=== PATIENT | female | born 1955 | race Caucasian/White ===

== ENCOUNTER 2017-02-23 05:39 | Outpatient (CLI) | payer OTHER ==
[~2017-02-23] VITALS: Ht 170.2 cm; Wt 102.7 kg
[~2017-02-23 05:39] MED LIST: AMLO10TA2 PO; ARIP10TA2 PO; ARIP5TAB20 PO; AZIT250T PO; BPR150TCR PO; BUPR150T14 PO; BUTA1TAB55 PO; CEFU500T PO; CPR500T PO; ENAL20TA PO; EST.625T PO; EST1.25T PO; GLYB5TAB6 PO; IBUP1TAB17 PO; MELO-198 PO; METF500T4 PO; MTF500T PO; MULT1TAB69 PO; NADO20TA10 PO; NADO40TA PO; OMEP20CA12 PO; ONDA4TAB10 PO; SITA100T12 PO; SITA25TA5 PO; TEMA15CA PO; TR1C15 TP; VITAMIN C PO
[2017-02-23] MEDS ORDERED: METF1000 PO (14:20)
[2017-02-23] MEDS ORDERED: NADO40TA PO (14:20)
[2017-02-23] MEDS ORDERED: VITA1CAP PO (14:20)
[2017-02-23] MEDS ORDERED: ENAL20TA PO (14:20)
== END 2017-02-23 14:33 ==
LOC: PREOP 05:39
PROVIDERS: ATTEND Surgery
DX: Z01.818 Encounter for other preprocedural examination (principal); Z12.11 Encounter for screening for malignant neoplasm of colon

== ENCOUNTER 2017-02-25 08:27 | Day surgery (SDC) | payer BC, OTHER ==
[~2017-02-25] VITALS: Ht 170.2 cm; Wt 102.7 kg
[~2017-02-25 08:27] MED LIST changes: +METF1000 PO; +VITA1CAP PO
[2017-02-25] MEDS ORDERED: NS IV 500 ML 500 ML IV PRN (09:02)
[2017-02-25 09:10] VITALS: BP 144/103
[2017-02-25] MEDS ORDERED: LIDOCAINE JELLY 2% (XYLOCAINE) 5 ML TUBE MM PRN (09:15)
[2017-02-25] MEDS ORDERED: fentaNYL INJECTION 100 MCG/2 ML AMP ONE ×2 (10:05)
[2017-02-25] MEDS ORDERED: LIDOCAINE JELLY 2% (XYLOCAINE) 5 ML TUBE ONE (10:05)
[2017-02-25] MEDS ORDERED: ONDANSETRON 4 MG/2 ML (SDV) Z0FRAN ONE (10:06)
[2017-02-25] MEDS ORDERED: MIDAZOLAM 2 MG/2 ML (VERSED) VIAL ONE ×6 (10:06→10:22)
[2017-02-25] MEDS: fentaNYL INJECTION 100 MCG/2 ML AMP IVP PRN ×3 (10:10→10:35)
--- NOTE | 2017-02-25 10:19 | Conscious Sedation/ASA ---
Conscious Sedation Pre-Proced Time Reviewed: 10:00 ASA Class: 2 Airway Mallampati Classification: ([place] appropriate class) I. II. III, IV Lungs Heart ASA score ASA 1: a normal healthy patient ASA 2: a patient with a mild systemic disease (mid diabetes, controlled hypertension, obesity ASA 3: a patient with a severe systemic disease that limits activity (angina , COPD, prior Myocardial infarction) ASA 4: a patient with an incapacitating disease that is a constant threat to life (CHF, renal failure) ASA 5: a moribund patient not expected to survive 24 hrs. (ruptured aneurysm) ASA 6: a declared brain patient whose organs are being harvested. For emergent operations, add the letter E after the classification Grade 2 Sedation Plan: Analgesia, Amnesia, Plan communicated to team members, Discussed options with patient/fam, Discussed risks with patient/fam Note The patient is an appropriate candidate to undergo the planned procedure, sedation, and anesthesia. The patient immediately re-assessed prior to indication. MARIAM GOLDSTEIN MD Feb 25, 2017 10:19 am
[2017-02-25] MEDS: MIDAZOLAM 2 MG/2 ML (VERSED) VIAL IVP PRN ×6 (10:20→10:33)
--- NOTE | 2017-02-25 10:20 | Progress Note-Pre Operative ---
Pre-Operative Progress Note H&P Reviewed The H&P was reviewed, patient examined and no changes noted. Date Seen by Provider: Feb 25, 2017 Time Seen by Provider: 10:00 Date H&P Reviewed: Feb 25, 2017 Time H&P Reviewed: 10:00 Pre-Operative Diagnosis: MARIAM Aldridge MD Feb 25, 2017 10:20 am
[2017-02-25] MEDS ORDERED: ACETAMINOPHEN 325 MG TABLET/CAPLET (TYLENOL) PO PRN (10:30)
[2017-02-25] MEDS ORDERED: HYDROcodone/APAP 5 MG/325 MG (LORTAB) TAB PO PRN (10:30)
[2017-02-25] MEDS ORDERED: morphine INJ 10 MG/ML 1ML (SYR OR VIAL) IV PRN (10:30)
[2017-02-25] MEDS ORDERED: ONDANSETRON 4 MG/2 ML (SDV) Z0FRAN IV PRN (10:30)
--- NOTE | 2017-02-25 10:54 | Progress Note-Post Operative ---
Post-Operative Progess Note Surgeon (s)/Merchandiser Seasonal (s) Surgeon MARIAM GOLDSTEIN MD Merchandiser Seasonal: none Pre-Operative Diagnosis screening Post-Operative Diagnosis chronic stage 2 ext and int hemorrhoids, small anterior distal rectocele. Procedure & Operative Findings Date of Procedure 02/25/17 Procedure Performed/Findings Colonoscopy Anesthesia Type CS Estimated Blood Loss Estimated blood loss (mL): minimal Specimens/Packing Specimens Removed none MARIAM GOLDSTEIN MD Feb 25, 2017 10:54 am
--- NOTE | 2017-02-25 10:56 | Discharge Inst-Surgical ---
D/C Lap Instructions-ANGELITA Follow Up PRN Activity as tolerated High Fiber Diet 25g or more per day Avoid Alcohol, Caffeine, Spicy [place] and Acid foods. Drink 64 fluid oz or more of fluids per day. Symptoms to Report: Fever over 101 degree F, Nausea/Vomiting If any problems/questions: Contact your physician or go to Emergency Room MARIAM GOLDSTEIN MD Feb 25, 2017 10:56 am
[2017-02-25 11:20] VITALS: BP 156/92
[2017-02-25 11:45] VITALS: BP 150/96
[2017-02-25 11:50] VITALS: BP 150/96
--- NOTE | 2017-02-25 13:17 | OPERATIVE REPORT ---
DATE OF SERVICE: 02/25/2017 ATTENDING PRIMARY CARE PHYSICIAN: Dr. Haddad. PREOPERATIVE DIAGNOSIS: Screening colonoscopy. POSTOPERATIVE DIAGNOSIS: 1. Chronic stage II external and internal hemorrhoids. 2. Rectocele. PROCEDURE: Colonoscopy. SURGEON: Dr. Goldstein. ANESTHESIA: Conscious sedation. ESTIMATED BLOOD LOSS: Minimal. FINDINGS: Chronic stage II external and internal hemorrhoids, small indentation towards the anterior rectum consistent with a rectocele. The remainder of the colon was normal. There were no polyps or any neoplasms identified. DISPOSITION: The patient tolerated the procedure well. The patient is a 61-year-old female who was referred over to us for difficulties in defecation. She has had issues for this for the past 6 months. When she does have the urge to have a bowel movement with Valsalva, she is unable to evacuate her stools; however, is able to with pressure anteriorly. For the most part she has well-formed stools and does have a bowel movement every morning. The consistency of her stools are formed and not soft. She does not report any red blood per rectum nor any dark tarry stools. She has not had a previous colonoscopy done in the past. Upon digital rectal examination she was found to have mild stage II, chronic external and internal hemorrhoids as well as a small palpable indentation anteriorly at the rectum consistent with a small rectocele. No other abnormalities were detected. DESCRIPTION OF PROCEDURE: The patient was brought to the endoscopy suite, laid in the left lateral decubitus position. After adequate IV pain and sedative medication and conscious sedation anesthesia, a digital rectal examination was performed. Chronic stage II external and internal hemorrhoids were identified which were not actively edematous or inflamed and no bleeding. Normal sphincter tone was felt. There was a small indentation anteriorly consistent with a small rectocele. There were no other abnormalities palpable. The endoscope was then intubated into the anus and rectum and gently insufflated. The endoscope was then advanced to the valves diffuse in the rectum with no polyps or any neoplasms identified. We then proceeded through the sigmoid colon where no diverticulosis was identified. The endoscope was then advanced through the remainder of the descending, transverse, and ascending colon to the cecum. These segments were normal. There were no polyps or any neoplasms identified throughout the colon or rectum. The endoscope was then slowly withdrawn while taking a second look and suctioning of residual air with no additional findings. The patient tolerated the procedure well. We will have her continue with medical management with a high fiber diet with at least 25 to 30 grams of fiber per day to promote soft stools on a daily basis. If she continues to have problems with defecation despite maximal medical therapy, we will refer her to a TROLLEY CAR OPERATOR for a rectocele repair. Job ID: [id number] DocumentID: [id number] Dictated Date: 02/25/2017 10:48:55 Tier And Detonator Date: 02/25/2017 13:16:42 Dictated By: MARIAM GOLDSTEIN MD
== END 2017-02-25 11:55 | disposition home or self-care (01) ==
LOC: ENDO 08:27
PROVIDERS: ATTEND Surgery
DX: Z12.11 Encounter for screening for malignant neoplasm of colon (principal); K64.1 Second degree hemorrhoids; N81.6 Rectocele; Z96.641 Presence of right artificial hip joint; I10 Essential (primary) hypertension; K21.9 Gastro-esophageal reflux disease without esophagitis; F32.9 Major depressive disorder, single episode, unspecified; E11.9 Type 2 diabetes mellitus without complications; Z79.899 Other long term (current) drug therapy
CPT/HCPCS: 82962

== ENCOUNTER 2017-07-02 11:15 | Outpatient (CLI) | payer OTHER ==
[~2017-07-02] VITALS: Ht 170.2 cm; Wt 102.7 kg
== END 2017-07-02 12:19 ==
LOC: PREOP 11:15
PROVIDERS: ATTEND Obstetrics & Gynecology
DX: Z01.818 Encounter for other preprocedural examination (principal); N81.6 Rectocele; N81.5 Vaginal enterocele; D64.9 Anemia, unspecified

== ENCOUNTER 2017-07-08 10:56 | Day surgery (SDC) | payer OTHER ==
[~2017-07-08] VITALS: Ht 170.2 cm; Wt 102.7 kg
[2017-07-08 11:10] VITALS: BP 146/95
[2017-07-08] MEDS: LACTATED RINGERS 1,000 ML IV PRN ×2 (11:30→13:47)
[2017-07-08] MEDS ORDERED: ceFAZolin 1 GM/NS 50 ML IVPB IV ONE ×2 (11:30)
[2017-07-08 11:48] LABS: BASOPHILS % (AUTO) 1 % (0-10); EOSINOPHILS # (AUTO) 0.2 10^3/uL (0.0-0.3); EOSINOPHILS % (AUTO) 3 % (0-10); LYMPHOCYTES # (AUTO) 1.6 X 10^3 (1.0-4.0); LYMPHOCYTES % (AUTO) 28 % (12-44); MEAN CORPUSCULAR HEMOGLOBIN 30 PG (25-34); MEAN CORPUSCULAR HGB CONC 34 G/DL (32-36); MEAN CORPUSCULAR VOLUME 90 FL (80-99); MEAN PLATELET VOLUME 9.9 FL (7.4-10.4); MONOCYTES # (AUTO) 0.6 X 10^3 (0.0-1.0); MONOCYTES % (AUTO) 10 % (0-12); NEUTROPHILS # (AUTO) 3.3 X 10^3 (1.8-7.8); NEUTROPHILS % (AUTO) 58 % (42-75); PLATELET COUNT 154 10^3/uL (130-400); RED BLOOD COUNT 4.54 10^6/uL (4.35-5.85); RED CELL DISTRIBUTION WIDTH 12.4 % (10.0-14.5); WHITE BLOOD COUNT 5.6 10^3/uL (4.3-11.0)
[2017-07-08] MEDS ORDERED: ESTRADIOL VAGINAL CREAM 42.5 GM (ESTRACE) VG ONE (12:51)
[2017-07-08] MEDS ORDERED: D5 LR IV SOLUTION 1,000 ML IV SCH (13:14)
--- NOTE | 2017-07-08 13:14 | Progress Note-Pre Operative ---
Pre-Operative Progress Note H&P Reviewed The H&P was reviewed, patient examined and no changes noted. Date Seen by Provider: Jul 08, 2017 Time Seen by Provider: 13:14 Date H&P Reviewed: Jul 08, 2017 Time H&P Reviewed: 13:14 Pre-Operative Diagnosis: vaginal prolapse/rectocele LIZ PENA MD Jul 08, 2017 1:14 pm
--- NOTE | 2017-07-08 13:14 | Progress Note-Post Operative ---
Post-Operative Progess Note Surgeon (s)/Optometric Technologist (s) Surgeon LIZ PENA MD Optometric Technologist: Blanca Melo Pre-Operative Diagnosis vaginal prolapse/rectocele Post-Operative Diagnosis same Procedure & Operative Findings Date of Procedure 07/08/17 Procedure Performed/Findings anterior and posterior colporrhaphy Anesthesia Type spinal Estimated Blood Loss Estimated blood loss (mL): 200 cc Specimens/Packing Specimens Removed none Packing: Kerlix LIZ Mc MD Jul 08, 2017 13:14
[2017-07-08] MEDS ORDERED: WATER (STERILE) FOR INJ 10 ML BTL INJ ONE (13:15)
[2017-07-08] MEDS ORDERED: PATIENT MAY USE OWN MEDS, ALL MC SCH (13:15)
[2017-07-08] MEDS ORDERED: ONDANSETRON 4 MG/2 ML (SDV) Z0FRAN IVP PRN ×2 (13:15→15:15)
[2017-07-08] MEDS ORDERED: KETOROLAC 30 MG/ML VIAL IVP SCH (13:15)
[2017-07-08] MEDS ORDERED: MEPERIDINE (DEMEROL) INJ 100 MG/ML IM PRN (13:15)
[2017-07-08] MEDS ORDERED: ESTROGENS CONJ IV 25 MG/5 ML (PREMARIN) VIAL IVP ONE (13:15)
[2017-07-08] MEDS ORDERED: PROMETHAZINE INJ 25 MG/ML (PHENERGAN) AMP IM PRN (13:15)
[2017-07-08] MEDS ORDERED: BENZOCAINE/MENTHOL (DERMOPLAST) 56 ML CAN TP PRN (13:15)
[2017-07-08] MEDS ORDERED: ceFAZolin INJECTION 1,000 MG in NS (IVPB) 50 ML IV ONE (13:15)
[2017-07-08] MEDS ORDERED: PROPOFOL INJECTION 50 ML IV ONE (13:17)
[2017-07-08] MEDS ORDERED: DOCU-143 PO (13:19)
[2017-07-08] MEDS ORDERED: OXYC-465 PO (13:19)
[2017-07-08] MEDS ORDERED: IBUP-1780 PO (13:19)
--- NOTE | 2017-07-08 13:23 | Discharge Instructions ---
Discharge Instructions Discharge Medications New, Converted or Re-Newed RX: RX on Chart Patient Instructions Patient Instructions: as directed Return to The Hospital For: as directed Activity & Diet Discharge Diet: No Restrictions Activity as Tolerated: No Orders-Post D/C & Referrals Follow Up Appt: Call to make follow up appt. for patient in 4 weeks. Activity: Rest for 24 hours, than as tolerated. Please call in RX to patient pharmacy. Diet: As tolerated-Clear Liquids only if nauseated. May shower or tub bathe as desired. No driving for 24 hours, no alcoholic beverages for 24 hours, and nothing per vagina (no tampons, douching, or intercourse) for 2 weeks. Patient to return to the clinic as soon as possible for: Temperature greater than 101F, Severe Pain, Foul discharge from incision or vagina, Excessive Bleeding (more than a period). LIZ PENA MD Jul 08, 2017 1:23 pm
[2017-07-08] MEDS ORDERED: FAMOTIDINE 20MG/2ML IV (PEPCID) IVP ONE (13:30)
[2017-07-08] MEDS ORDERED: KETOROLAC 30 MG/ML VIAL ONE (15:11)
[2017-07-08] MEDS ORDERED: fentaNYL INJECTION 100 MCG/2 ML AMP IVP PRN (15:15)
[2017-07-08] MEDS ORDERED: PROMETHAZINE INJ 25 MG/ML (PHENERGAN) AMP IVP PRN (15:15)
[2017-07-08 16:15] VITALS: BP 138/71
--- NOTE | 2017-07-08 17:51 | HISTORY AND PHYSICAL ---
DATE OF SERVICE: DATE OF ADMISSION: 07/08/2017. HISTORY OF PRESENT ILLNESS: The patient is a 62-year-old G4, P4 who was referred to me by for a rectocele. She was found also to have a cystocele. She denied urinary incontinence. She was complaining that she had a splint for bowel movements and that has been getting progressively worse over the years. She had a sensation of something falling out of her vagina and occasionally had to reduce it. We had a lengthy discussion regarding surgical repairs which she elected to undergo and that was scheduled for 07/08/2017. ALLERGIES: None. MEDICATIONS: Per her H and P of 06/03/2017. Past medical, surgical, obstetric, family and social histories are per the H and P of 06/03/2017. HEENT: Normal. NECK: Supple, no lymphadenopathy, no thyromegaly. ABDOMEN: Soft, nontender, nondistended. EXTREMITIES: Showed no clubbing or cyanosis. There was no Homans sign. PELVIC EXAM: Deferred to the operating room. ASSESSMENT AND PLAN: The patient has symptomatic vaginal prolapse, most prominently a rectocele, but she also has a cystocele. Plan is to perform posterior colporrhaphy and likely an anterior colporrhaphy on this day. Surgical risks, complication, recovery and followup were fully discussed with the patient. She accepts those risks and is ready to proceed. Job ID: [id number] DocumentID: [id number] Dictated Date: 07/08/2017 14:50:45 Photographer Scientific Date: 07/08/2017 15:51:59 Dictated By: LIZ PENA MD
[2017-07-08] MEDS: oxyCODONE/APAP 10/325MG (PERCOCET 10) TABLET PO PRN ×2 (19:00→20:08)
[2017-07-08 20:05] VITALS: BP 138/68
[2017-07-08] MEDS ORDERED: INFLUENZA TRIvalent 2017-2018 0.5 ML/45 MCG SYR IM ONE (20:30)
[2017-07-08] MEDS: KETOROLAC 30 MG/ML VIAL IVP SCH (21:59)
[2017-07-09 01:30] VITALS: BP 126/72
--- NOTE | 2017-07-09 02:34 | OPERATIVE REPORT ---
DATE OF SERVICE: 07/08/2017 PREOPERATIVE DIAGNOSIS: Vaginal prolapse. POSTOPERATIVE DIAGNOSIS: Vaginal prolapse. OPERATIVE PROCEDURE: Anterior and posterior colporrhaphy. OPERATIVE DESCRIPTION: With the patient in the supine position under satisfactory spinal anesthesia, she was repositioned in dorsal lithotomy position in the Julien stirrups and prepped and draped in the usual fashion for vaginal surgery. An anterior repair was initiated by placing a weighted speculum in the posterior fornix of the vagina. The anterior vaginal wall was grasped with 2 Caroline clamps, opened in the midline with Metzenbaum scissors. The vesicovaginal space was entered sharply with Metzenbaums and then dissected to approximately 1.5 cm from the urethral meatus to the apex of the vagina. The bladder was carefully dissected off of the muscularis of the vagina back to the pubic bilaterally. The bladder wall was then plicated with 2-0 Vicryl sutures in the usual manner elevating the bladder and lengthening the urethra. Redundant anterior vaginal wall muscularis mucosa was removed sharply. The vaginal wall was closed with a running locked suture of 3-0 Vicryl Rapide. The support was back to normal in anatomic position. Posterior repair was then affected by placing Caroline clamps on the perineum and the hymenal ring at 5 and 7 o'clock position. The inverted triangle of skin was removed from the perineal body and upright triangle from the posterior vaginal floor. The vesicovaginal space was entered sharply and dissected bluntly to the apex of the vagina. The apex was explored for an enterocele that being small and it was reduced and then plicated with a 2-0 Vicryl pursestring suture obliterating the enterocele. The rectovaginal space was then obliterated with additional sutures of 2-0 Vicryl. The perineal body was restored with 2-0 Vicryl individual sutures and then redundant posterior vaginal wall muscularis mucosa was removed sharply. Vaginal wall was closed with a running locked suture of 3-0 Vicryl Rapide as well. That closure was continued past the hymenal ring and back down on the perineal body, then backup subcutaneous to the hymenal ring where the suture was tied. Digital rectal exam confirmed no stricture or stenosis of the rectum and no sutures into or through the rectal mucosa. The vagina was now filled was Estrace vaginal cream and a pack of Kerlix gauze was placed. Sponge and needle counts were correct on completion of the procedure. Estimated blood loss was around 200 mL. The patient tolerated the procedure well under the spinal and was transferred to recovery room in stable condition. Job ID: [id number] DocumentID: [id number] Dictated Date: 07/08/2017 14:53:31 Public Relations Player Date: 07/09/2017 01:38:52 Dictated By: LIZ PENA MD
[2017-07-09] MEDS: KETOROLAC 30 MG/ML VIAL IVP SCH (03:51)
[2017-07-09 03:55] VITALS: BP 124/76
--- NOTE | 2017-07-09 07:53 | Progress Note-Standard ---
Standard Progress Note Progress Notes/Assess & Plan Date Seen by Provider: Jul 09, 2017 Time Seen by Provider: 07:52 Progress/Assessment & Plan this patient is without complaint. She is ambulating, tolerating by mouth well , has good pain control. She has not voided yet. patient denies chest pain, denies shortness of breath, denies nausea vomiting, and denies headache. Vital Signs Date Time Temp Pulse Resp B/P (MAP) Pulse Ox O2 Delivery O2 Flow Rate FiO2 07/09/17 03:55 96.9 66 18 124/76 (92) 95 Room Air 07/09/17 01:30 97.6 73 18 126/72 (90) 93 Room Air 07/08/17 20:05 97.4 81 18 138/68 (91) 95 Room Air 07/08/17 16:15 98.4 67 20 138/71 (93) 96 Room Air 07/08/17 11:10 97.5 82 18 146/95 (112) 97 Room Air I & O 07/09/17 07:00 Intake Total 2850 ml Output Total 2700 ml Balance 150 ml Vital signs are stable. Patient is afebrile. The abdomen is benign. Extremities show no clubbing cyanosis. There is no Homans sign. Assessment and plan postoperative day number 1 doing well. Plan is for discharge home when patient is ambulating, voiding, told feel, has good pain control, and is requesting discharge home. Final Diagnosis vaginal prolapse LIZ PENA MD Jul 09, 2017 7:53 am
[2017-07-09] MEDS: oxyCODONE/APAP 10/325MG (PERCOCET 10) TABLET PO PRN ×2 (08:33→09:33)
[2017-07-09 08:37] VITALS: BP 138/85
[2017-07-09] MEDS ORDERED: DOCUSATE SODIUM 100 MG (COLACE) CAP PO SCH (09:00)
[2017-07-09] MEDS ORDERED: ESTRADIOL 1 MG TAB (ESTRACE) PO SCH (09:00)
--- OUTSIDE RECORDS SUMMARY | 2017-07-09 09:35 | XMS REPORT | Continuity of Care Document ---
Author Author [facility] Organization [facility] Address Unknown Phone Unavailable Allergies Active Description Code Type Severity Reaction Onset Reported/Identified Relationship to Patient Clinical Status Yes No Known Drug Allergies [id number] Drug Allergy Unknown N/A 07/02/2017 Medications There is no data. Problems Date Dx Coded Attending Type Code Diagnosis Diagnosed By 05/21/2012 Ot 346.90 MIGRAINE UNSPECIFIED W/O INTRACT MGRN W/ 05/21/2012 Ot 784.0 HEADACHE 07/08/2012 Ot 596.51 HYPERTONICITY OF BLADDER 07/08/2012 Ot 618.2 UTEROVAG PROLAPS-INCOMPL 07/08/2012 Ot 625.6 FEM STRESS INCONTINENCE 07/24/2014 KAYLAN HOBBS MD Ot 397.0 07/24/2014 KAYLAN HOBBS MD Ot 424.0 07/24/2014 KAYLAN HOBBS MD Ot 785.1 07/24/2014 KAYLAN HOBBS MD Ot 786.09 07/24/2014 KAYLAN HOBBS MD Ot 786.50 07/24/2014 KAYLAN HOBBS MD Ot 424.0 07/24/2014 KAYLAN HOBBS MD Ot 785.1 07/24/2014 KAYLAN HOBBS MD Ot 786.09 07/24/2014 KAYLAN HOBBS MD Ot 786.50 08/17/2014 ANTONINA HERNÁNDEZ MD Ot 786.2 03/22/2015 ANTONINA HERNÁNDEZ MD Ot 786.2 04/13/2015 ANTONINA HERNÁNDEZ MD Ot 786.2 05/09/2015 Ot 790.5 05/09/2015 ANTONINA HERNÁNDEZ MD Ot 786.2 05/09/2015 KAYLAN HOBBS MD Ot 397.0 05/09/2015 KAYLAN HOBBS MD Ot 424.0 05/09/2015 KAYLAN HOBBS MD Ot 785.1 05/09/2015 KAYLAN HOBBS MD Ot 786.09 05/09/2015 KAYLAN HOBBS MD Ot 786.50 05/09/2015 KAYLAN HOBBS MD Ot 424.0 05/09/2015 KAYLAN HOBBS MD Ot 785.1 05/09/2015 KAYLAN HOBBS MD Ot 786.09 05/09/2015 KAYLAN HOBBS MD Ot 786.50 05/09/2015 ANTONINA HERNÁNDEZ MD Ot 786.2 05/10/2015 PHAN ROSS, SHILO Reza Ot E11.9 TYPE 2 DIABETES MELLITUS WITHOUT COMPLIC 05/10/2015 SHILO CHISHOLM MD Ot R10.13 EPIGASTRIC PAIN 05/10/2015 SHILO CHISHOLM MD Ot R11.2 NAUSEA WITH VOMITING, UNSPECIFIED 05/10/2015 PHAN ROSS, SHILO Reza Ot Z79.899 OTHER STRUCTURAL WELDER (CURRENT) DRUG THERAPY 10/11/2015 Ot 790.5 10/11/2015 ANTONINA HERNÁNDEZ MD Ot 786.2 10/11/2015 KAYLAN HOBBS MD Ot 397.0 10/11/2015 KAYLAN HOBBS MD Ot 424.0 10/11/2015 KAYLAN HOBBS MD Ot 785.1 10/11/2015 KAYLAN HOBBS MD Ot 786.09 10/11/2015 KAYLAN HOBBS MD Ot 786.50 10/11/2015 KAYLAN HOBBS MD Ot 424.0 10/11/2015 KAYLAN HOBBS MD Ot 785.1 10/11/2015 KAYLAN HOBBS MD Ot 786.09 10/11/2015 KAYLAN HOBBS MD Ot 786.50 10/11/2015 ANTONINA HERNÁNEDZ MD Ot 786.2 10/31/2015 Ot 790.5 10/31/2015 ANTONINA HERNÁNDEZ MD Ot 786.2 10/31/2015 KAYLAN HOBBS MD Ot 397.0 10/31/2015 KAYLAN HOBBS MD Ot 424.0 10/31/2015 KAYLAN HOBBS MD Ot 785.1 10/31/2015 KAYLAN HOBBS MD Ot 786.09 10/31/2015 KAYLAN HOBBS MD Ot 786.50 10/31/2015 KAYLAN HOBBS MD Ot 424.0 10/31/2015 KAYLAN OHBBS MD Ot 785.1 10/31/2015 KAYLAN HOBBS MD Ot 786.09 10/31/2015 KAYLAN HOBBS MD Ot 786.50 10/31/2015 ANTONINA HERNÁNDEZ MD Ot 786.2 12/14/2015 KESHAWN CHRISTINA MD, Ot M75.102 UNSP ROTATR-CUFF TEAR/RUPTR OF LEFT SHOU 05/22/2016 Ot 790.5 ABN SERUM ENZY LEVEL NEC 05/22/2016 ANTONINA HERNÁNDEZ MD Ot 786.2 COUGH 05/22/2016 KAYLAN HOBBS MD Ot 397.0 TRICUSPID VALVE DISEASE 05/22/2016 KAYLAN HOBBS MD Ot 424.0 MITRAL VALVE DISORDER 05/22/2016 KAYLAN HOBBS MD Ot 785.1 PALPITATIONS 05/22/2016 KAYLAN HOBBS MD Ot 786.09 RESPIRATORY ABNORM NEC 05/22/2016 KAYLAN HOBBS MD Ot 786.50 CHEST PAIN NOS 05/22/2016 KAYLAN HOBBS MD Ot 424.0 MITRAL VALVE DISORDER 05/22/2016 KAYLAN HOBBS MD Ot 785.1 PALPITATIONS 05/22/2016 KAYLAN HOBBS MD Ot 786.09 RESPIRATORY ABNORM NEC 05/22/2016 KAYLAN HOBBS MD Ot 786.50 CHEST PAIN NOS 05/22/2016 ANTONINA HERNÁNDEZ MD Ot 786.2 COUGH 05/22/2016 KESHAWN CHRISTINA MD, Ot M75.102 UNSP ROTATR-CUFF TEAR/RUPTR OF LEFT SHOU 05/22/2016 Ot 790.5 ABN SERUM ENZY LEVEL NEC 05/22/2016 ANTONINA HERNÁNDEZ MD Ot 786.2 COUGH 05/22/2016 KAYLAN HOBBS MD Ot 397.0 TRICUSPID VALVE DISEASE 05/22/2016 KAYLAN HOBBS MD Ot 424.0 MITRAL VALVE DISORDER 05/22/2016 KAYLAN HOBBS MD Ot 785.1 PALPITATIONS 05/22/2016 KAYLAN HOBBS MD Ot 786.09 RESPIRATORY ABNORM NEC 05/22/2016 KAYLAN HOBBS MD Ot 786.50 CHEST PAIN NOS 05/22/2016 KAYLAN HOBBS MD Ot 424.0 MITRAL VALVE DISORDER 05/22/2016 KAYLAN HOBBS MD Ot 785.1 PALPITATIONS 05/22/2016 KAYLAN HOBBS MD Ot 786.09 RESPIRATORY ABNORM NEC 05/22/2016 KAYLAN HOBBS MD Ot 786.50 CHEST PAIN NOS 05/22/2016 ANTONINA HERNÁNDEZ MD Ot 786.2 COUGH 05/22/2016 SANFORD ROSS, KESHAWN Cunningham Ot M75.102 UNSP ROTATR-CUFF TEAR/RUPTR OF LEFT SHOU 05/23/2016 ZAYNAB MEJÍA RUSTY K Ot E11.9 TYPE 2 DIABETES MELLITUS WITHOUT COMPLIC 05/23/2016 ZAYNAB MEJÍA RUSTY Judy Ot E86.0 DEHYDRATION 05/23/2016 ZAYNAB MEJÍA RUSTY Judy Ot I10 ESSENTIAL (PRIMARY) HYPERTENSION 05/23/2016 ZAYNAB MEJÍA RUSTY K Ot N10 ACUTE PYELONEPHRITIS 05/23/2016 ZAYNAB MEJÍA RUSTY K Ot Z79.84 SNF (CURRENT) USE OF ORAL HYPOGLYC 05/23/2016 ZAYNAB MEJÍA RUSTY Judy Ot E11.9 TYPE 2 DIABETES MELLITUS WITHOUT COMPLIC 05/23/2016 ZAYNAB MEJÍA RUSTY Judy Ot E86.0 DEHYDRATION 05/23/2016 ZAYNAB MEJÍA RUSTY K Ot I10 ESSENTIAL (PRIMARY) HYPERTENSION 05/23/2016 ZAYNAB MEJÍA RUSTY K Ot N10 ACUTE PYELONEPHRITIS 05/23/2016 ZAYNAB MEJÍA RUSTY K Ot Z79.84 SNF (CURRENT) USE OF ORAL HYPOGLYC 05/23/2016 Ot 790.5 ABN SERUM ENZY LEVEL NEC 05/23/2016 ANTONINA HERNÁNDEZ MD Ot 786.2 COUGH 05/23/2016 KAYLAN HOBBS MD Ot 397.0 TRICUSPID VALVE DISEASE 05/23/2016 KAYLAN HOBBS MD Ot 424.0 MITRAL VALVE DISORDER 05/23/2016 KAYLAN HOBBS MD Ot 785.1 PALPITATIONS 05/23/2016 KAYLAN HOBBS MD Ot 786.09 RESPIRATORY ABNORM NEC 05/23/2016 KAYLAN HOBBS MD Ot 786.50 CHEST PAIN NOS 05/23/2016 KAYLAN HOBBS MD Ot 424.0 MITRAL VALVE DISORDER 05/23/2016 KAYLAN HOBBS MD Ot 785.1 PALPITATIONS 05/23/2016 FABY ROSS, KAYLAN Rider Ot 786.09 RESPIRATORY ABNORM NEC 05/23/2016 FABY ROSS, KAYLAN Rider Ot 786.50 CHEST PAIN NOS 05/23/2016 BETTY ROSS, ANTONINA Rider Ot 786.2 COUGH 05/23/2016 SANFORD ROSS, KESHAWN Cunningham Ot M75.102 UNSP ROTATR-CUFF TEAR/RUPTR OF LEFT SHOU 05/23/2016 WORTHY DO, RUSTY K Ot E11.9 TYPE 2 DIABETES MELLITUS WITHOUT COMPLIC 05/23/2016 WORTHY DO, RUSTY K Ot E86.0 DEHYDRATION 05/23/2016 WORTHY DO, RUSTY K Ot I10 ESSENTIAL (PRIMARY) HYPERTENSION 05/23/2016 WORTHY DO, RUSTY K Ot N10 ACUTE PYELONEPHRITIS 05/23/2016 WORTHY DO, RUSTY K Ot Z79.84 SNF (CURRENT) USE OF ORAL HYPOGLYC 05/23/2016 WORTHY DO, RUSTY K Ot E11.9 TYPE 2 DIABETES MELLITUS WITHOUT COMPLIC 05/23/2016 WORTHY DO, RUSTY K Ot E86.0 DEHYDRATION 05/23/2016 WORTHY DO, RUSTY K Ot I10 ESSENTIAL (PRIMARY) HYPERTENSION 05/23/2016 WORTHY DO, RUSTY K Ot N10 ACUTE PYELONEPHRITIS 05/23/2016 WORTHY DO, RUSTY K Ot Z79.84 SNF (CURRENT) USE OF ORAL HYPOGLYC 05/24/2016 WORTHY DO, RUSTY K Ot E11.9 TYPE 2 DIABETES MELLITUS WITHOUT COMPLIC 05/24/2016 WORTHY DO, RSUTY K Ot E86.0 DEHYDRATION 05/24/2016 WORTHY DO, RUSTY K Ot I10 ESSENTIAL (PRIMARY) HYPERTENSION 05/24/2016 WORTHY DO, RUSTY K Ot N10 ACUTE PYELONEPHRITIS 05/24/2016 WORTHY DO, RUSTY K Ot Z79.84 STRUCTURAL WELDER (CURRENT) USE OF ORAL HYPOGLYC 05/25/2016 WORTHY DO, RUSTY K Ot E11.9 TYPE 2 DIABETES MELLITUS WITHOUT COMPLIC 05/25/2016 WORTHY DO, RUSTY K Ot E86.0 DEHYDRATION 05/25/2016 WORTHY DO, RUSTY K Ot I10 ESSENTIAL (PRIMARY) HYPERTENSION 05/25/2016 WORTHY DO, RUSTY K Ot N10 ACUTE PYELONEPHRITIS 05/25/2016 WORTHY DO, RUSTY K Ot Z79.84 STRUCTURAL WELDER (CURRENT) USE OF ORAL HYPOGLYC 05/25/2016 WORTHY DO, RUSTY K Ot E11.9 TYPE 2 DIABETES MELLITUS WITHOUT COMPLIC 05/25/2016 WORTHY DO, RUSTY K Ot E86.0 DEHYDRATION 05/25/2016 WORTHY DO, RUSTY K Ot I10 ESSENTIAL (PRIMARY) HYPERTENSION 05/25/2016 WORTHY DO, RUSTY K Ot N10 ACUTE PYELONEPHRITIS 05/25/2016 WORTHY DO, RUSTY K Ot Z79.84 STRUCTURAL WELDER (CURRENT) USE OF ORAL HYPOGLYC 05/25/2016 WORTHY DO, RUSTY K Ot E11.9 TYPE 2 DIABETES MELLITUS WITHOUT COMPLIC 05/25/2016 WORTHY DO, RUSTY K Ot E86.0 DEHYDRATION 05/25/2016 WORTHY DO, RUSTY K Ot I10 ESSENTIAL (PRIMARY) HYPERTENSION 05/25/2016 WORTHY DO, RUSTY K Ot N10 ACUTE PYELONEPHRITIS 05/25/2016 WORTHY DO, RUSTY K Ot Z79.84 STRUCTURAL WELDER (CURRENT) USE OF ORAL HYPOGLYC 05/26/2016 WORTHY DO, RUSTY K Ot E11.9 TYPE 2 DIABETES MELLITUS WITHOUT COMPLIC 05/26/2016 WORTHY DO, RUSTY K Ot E86.0 DEHYDRATION 05/26/2016 WORTHY DO, RUSTY K Ot I10 ESSENTIAL (PRIMARY) HYPERTENSION 05/26/2016 WORTHY DO, RUSTY K Ot N10 ACUTE PYELONEPHRITIS 05/26/2016 WORTHY DO, RUSTY K Ot Z79.84 SNF (CURRENT) USE OF ORAL HYPOGLYC 05/27/2016 WORTHY DO, RUSTY K Ot E11.9 TYPE 2 DIABETES MELLITUS WITHOUT COMPLIC 05/27/2016 WORTHY DO, RUSTY K Ot E86.0 DEHYDRATION 05/27/2016 WORTHY DO, RUSTY K Ot I10 ESSENTIAL (PRIMARY) HYPERTENSION 05/27/2016 WORTHY DO, RUSTY K Ot N10 ACUTE PYELONEPHRITIS 05/27/2016 WORTHY DO, RUSTY K Ot Z79.84 SNF (CURRENT) USE OF ORAL HYPOGLYC 05/28/2016 WORTHY DO, RUSTY K Ot B37.3 CANDIDIASIS OF VULVA AND VAGINA 05/28/2016 WORTHY DO, RUSTY K Ot B96.81 HELICOBACTER PYLORI THE CAUSE OF DISE 05/28/2016 WORTHY DO, RUSTY K Ot E11.9 TYPE 2 DIABETES MELLITUS WITHOUT COMPLIC 05/28/2016 WORTHY DO, RUSTY K Ot E86.0 DEHYDRATION 05/28/2016 WORTHY DO, RUSTY K Ot E87.2 ACIDOSIS 05/28/2016 RUSTY WORTHY DO Ot I10 ESSENTIAL (PRIMARY) HYPERTENSION 05/28/2016 RUSTY WORTHY DO Ot J18.9 PNEUMONIA, UNSPECIFIED ORGANISM 05/28/2016 RUSTY WORTHY DO Ot J90 PLEURAL EFFUSION, NOT ELSEWHERE CLASSIFI 05/28/2016 RUSTY WORTHY DO Ot K52.9 NONINFECTIVE GASTROENTERITIS AND COLITIS 05/28/2016 RUSTY WORTHY DO Ot N10 ACUTE PYELONEPHRITIS 05/28/2016 RUSTY WORTHY DO Ot Z23 ENCOUNTER FOR IMMUNIZATION 05/28/2016 RUSTY WORTHY DO Ot Z79.84 STRUCTURAL WELDER (CURRENT) USE OF ORAL HYPOGLYC 10/23/2016 Ot 596.51 HYPERTONICITY OF BLADDER 10/23/2016 Ot 618.01 CYSTOCELE, MIDLINE 10/23/2016 Ot 788.30 UNSPECIFIED URINARY INCONTINENCE 10/23/2016 Ot V72.63 PRE- PROCEDURAL LABORATORY EXAMINATION 10/23/2016 Ot V74.8 SCREEN- BACTERIAL DIS NEC 02/25/2017 MARIAM GOLDSTEIN MD, Ot E11.9 TYPE 2 DIABETES MELLITUS WITHOUT COMPLIC 02/25/2017 MARIAM GOLDSTEIN MD, Ot F32.9 MAJOR DEPRESSIVE DISORDER, SINGLE EPISOD 02/25/2017 MARIAM GOLDSTEIN MD, Ot I10 ESSENTIAL (PRIMARY) HYPERTENSION 02/25/2017 MARIAM GOLDSTEIN MD, Ot K21.9 GASTRO-ESOPHAGEAL REFLUX DISEASE WITHOUT 02/25/2017 MARIAM GOLDSTEIN MD Ot K64.1 SECOND DEGREE HEMORRHOIDS 02/25/2017 MARIAM GOLDSTEIN MD, Ot N81.6 RECTOCELE 02/25/2017 MARIAM GOLDSTEIN MD, Ot Z12.11 ENCOUNTER FOR SCREENING FOR MALIGNANT NE 02/25/2017 MARIAM GOLDSTEIN MD, Ot Z79.899 OTHER STRUCTURAL WELDER (CURRENT) DRUG THERAPY 02/25/2017 MARIAM GOLDSTEIN MD, Ot Z96.641 PRESENCE OF RIGHT ARTIFICIAL HIP JOINT 02/26/2017 MARIAM GOLDSTEIN MD, Ot E11.9 TYPE 2 DIABETES MELLITUS WITHOUT COMPLIC 02/26/2017 MARIAM GOLDSTEIN MD, Ot F32.9 MAJOR DEPRESSIVE DISORDER, SINGLE EPISOD 02/26/2017 MARIAM GOLDSTEIN MD Ot I10 ESSENTIAL (PRIMARY) HYPERTENSION 02/26/2017 MARIAM GOLDSTEIN MD, Ot K21.9 GASTRO-ESOPHAGEAL REFLUX DISEASE WITHOUT 02/26/2017 MARIAM GOLDSTEIN MD, Ot K64.1 SECOND DEGREE HEMORRHOIDS 02/26/2017 MARIAM GOLDSTEIN MD, Ot N81.6 RECTOCELE 02/26/2017 MARIAM GOLDSTEIN MD, Ot Z12.11 ENCOUNTER FOR SCREENING FOR MALIGNANT NE 02/26/2017 MARIAM GOLDSTEIN MD, Ot Z79.899 OTHER SNF (CURRENT) DRUG THERAPY 02/26/2017 MARIAM GOLDSTEIN MD, Ot Z96.641 PRESENCE OF RIGHT ARTIFICIAL HIP JOINT 03/01/2017 MARIAM GOLDSTEIN MD, Ot Z01.818 ENCOUNTER FOR OTHER PREPROCEDURAL EXAMIN 03/01/2017 MARIAM GOLDSTEIN MD, Ot Z12.11 ENCOUNTER FOR SCREENING FOR MALIGNANT NE 07/02/2017 LIZ PENA MD, Ot D64.9 ANEMIA, UNSPECIFIED 07/02/2017 LIZ PENA MD, Ot N81.5 VAGINAL ENTEROCELE 07/02/2017 LIZ PENA MD, Ot N81.6 RECTOCELE 07/02/2017 LIZ PENA MD, Ot Z01.818 ENCOUNTER FOR OTHER PREPROCEDURAL EXAMIN Procedures There is no data. Results Test Result Range Capillary blood glucose measurement by glucometer (mass/volume) - 05/22/16 09: 47 Capillary blood glucose measurement by glucometer (mass/volume) 256 mg/dL 70-110 Complete urinalysis with reflex to culture - 05/22/16 10:03 Urine color determination YELLOW NRG Urine clarity determination SLIGHTLY CLOUDY NRG Urine pH measurement by test strip 5 5-9 Specific gravity of urine by test strip 1.025 1.016- 1.022 Urine protein assay by test strip, semi-quantitative 2+ NEGATIVE Urine glucose detection by automated test strip NEGATIVE NEGATIVE Erythrocytes detection in urine sediment by light microscopy 1+ NEGATIVE Urine ketones detection by automated test strip NEGATIVE NEGATIVE Urine nitrite detection by test strip POSITIVE NEGATIVE Urine total bilirubin detection by test strip 2+ NEGATIVE Urine urobilinogen measurement by automated test strip (mass/volume) 1 mg/dL NORMAL Urine leukocyte esterase detection by dipstick 1+ NEGATIVE Automated urine sediment erythrocyte count by microscopy (number/high power field) [HPF] NRG Automated urine sediment leukocyte count by microscopy (number/high power field ) [HPF] NRG Bacteria detection in urine sediment by light microscopy MODERATE NRG Crystals detection in urine sediment by light microscopy PRESENT NRG Casts detection in urine sediment by light microscopy PRESENT NRG Mucus detection in urine sediment by light microscopy NEGATIVE NRG Complete urinalysis with reflex to culture YES NRG Amorphous sediment detection in urine sediment by light microscopy RARE VIVIANE URATES NRG Hyaline casts detection in urine sediment by light microscopy >50 NRG Bacterial urine culture - 05/22/16 10:03 URINE CULTURE RESULTS <10,000/ML NRG Complete blood count (CBC) with automated white blood cell (WBC) differential - 05/22/16 10:15 Blood leukocytes automated count (number/volume) 4.9 10*3/uL 4.3-11.0 Blood erythrocytes automated count (number/volume) 4.87 10*6/uL 4.35-5.85 Venous blood hemoglobin measurement (mass/volume) 14.6 g/dL 11.5-16.0 Blood hematocrit (volume fraction) 43 % 35-52 Automated erythrocyte mean corpuscular volume 87 [foz_us] 80-99 Automated erythrocyte mean corpuscular hemoglobin (mass per erythrocyte) 30 pg 25-34 Automated erythrocyte mean corpuscular hemoglobin concentration measurement ( mass/volume) 34 g/dL 32-36 Automated erythrocyte distribution width ratio 13.0 % 10.0-14.5 Automated blood platelet count (count/volume) 123 10*3/uL 130-400 Automated blood platelet mean volume measurement 10.0 [foz_us] 7.4-10.4 Automated blood neutrophils/100 leukocytes 71 % 42-75 Automated blood lymphocytes/100 leukocytes 16 % 12-44 Blood monocytes/100 leukocytes 13 % 0-12 Automated blood eosinophils/100 leukocytes 0 % 0-10 Automated blood basophils/100 leukocytes 0 % 0-10 Blood neutrophils automated count (number/volume) 3.5 10*3 1.8-7.8 Blood lymphocytes automated count (number/volume) 0.8 10*3 1.0-4.0 Blood monocytes automated count (number/volume) 0.7 10*3 0.0-1.0 Automated eosinophil count 0.0 10*3/uL 0.0-0.3 Automated blood basophil count (count/volume) 0.0 10*3/uL 0.0-0.1 Comprehensive metabolic panel - 05/22/16 10:15 Serum or plasma sodium measurement (moles/volume) 132 mmol/L 135-145 Serum or plasma potassium measurement (moles/volume) 3.3 mmol/L 3.6-5.0 Serum or plasma chloride measurement (moles/volume) 99 mmol/L 98-107 Carbon dioxide 23 mmol/L 21-32 Serum or plasma anion gap determination (moles/volume) 10 mmol/L 5-14 Serum or plasma urea nitrogen measurement (mass/volume) 15 mg/dL 7-18 Serum or plasma creatinine measurement (mass/volume) 0.86 mg/dL 0.60-1.30 Serum or plasma urea nitrogen/creatinine mass ratio 17 NRG Serum or plasma creatinine measurement with calculation of estimated glomerular filtration rate > NRG Serum or plasma glucose measurement (mass/volume) 248 mg/dL 70-105 Serum or plasma calcium measurement (mass/volume) 8.5 mg/dL 8.5-10.1 Serum or plasma total bilirubin measurement (mass/volume) 0.6 mg/dL 0.1-1.0 Serum or plasma alkaline phosphatase measurement (enzymatic activity/volume) 78 U/L 40-136 Serum or plasma aspartate aminotransferase measurement (enzymatic activity/ volume) 33 U/L 5-34 Serum or plasma alanine aminotransferase measurement (enzymatic activity/volume ) 64 U/L 0-55 Serum or plasma protein measurement (mass/volume) 6.6 g/dL 6.4-8.2 Serum or plasma albumin measurement (mass/volume) 3.7 g/dL 3.2-4.5 Blood lactic acid measurement (moles/volume) - 05/22/16 13:12 Blood lactic acid measurement (moles/volume) 1.4 mmol/L 0.5-2.0 Bacterial blood culture - 05/22/16 13:12 Bacterial blood culture NG [facility] Bacterial blood culture - 05/22/16 13:35 QUANTITY OF GROWTH Isolated [facility] Bacterial blood culture [id number] [facility] Capillary blood glucose measurement by glucometer (mass/volume) - 05/22/16 14: 34 Capillary blood glucose measurement by glucometer (mass/volume) 253 mg/dL 70-110 Capillary blood glucose measurement by glucometer (mass/volume) - 05/22/16 20: 47 Capillary blood glucose measurement by glucometer (mass/volume) 205 mg/dL 70-110 Complete blood count (CBC) with automated white blood cell (WBC) differential - 05/23/16 05:45 Blood leukocytes automated count (number/volume) 3.9 10*3/uL 4.3-11.0 Blood erythrocytes automated count (number/volume) 4.22 10*6/uL 4.35-5.85 Venous blood hemoglobin measurement (mass/volume) 12.8 g/dL 11.5-16.0 Blood hematocrit (volume fraction) 38 % 35-52 Automated erythrocyte mean corpuscular volume 89 [foz_us] 80-99 Automated erythrocyte mean corpuscular hemoglobin (mass per erythrocyte) 30 pg 25-34 Automated erythrocyte mean corpuscular hemoglobin concentration measurement ( mass/volume) 34 g/dL 32-36 Automated erythrocyte distribution width ratio 12.9 % 10.0-14.5 Automated blood platelet count (count/volume) 120 10*3/uL 130-400 Automated blood platelet mean volume measurement 9.9 [foz_us] 7.4-10.4 Automated blood neutrophils/100 leukocytes 64 % 42-75 Automated blood lymphocytes/100 leukocytes 18 % 12-44 Blood monocytes/100 leukocytes 16 % 0-12 Automated blood eosinophils/100 leukocytes 1 % 0-10 Automated blood basophils/100 leukocytes 0 % 0-10 Blood neutrophils automated count (number/volume) 2.5 10*3 1.8-7.8 Blood lymphocytes automated count (number/volume) 0.7 10*3 1.0-4.0 Blood monocytes automated count (number/volume) 0.6 10*3 0.0-1.0 Automated eosinophil count 0.0 10*3/uL 0.0-0.3 Automated blood basophil count (count/volume) 0.0 10*3/uL 0.0-0.1 Comprehensive metabolic panel - 05/23/16 05:45 Serum or plasma sodium measurement (moles/volume) 136 mmol/L 135-145 Serum or plasma potassium measurement (moles/volume) 3.2 mmol/L 3.6-5.0 Serum or plasma chloride measurement (moles/volume) 102 mmol/L 98-107 Carbon dioxide 22 mmol/L 21-32 Serum or plasma anion gap determination (moles/volume) 12 mmol/L 5-14 Serum or plasma urea nitrogen measurement (mass/volume) 11 mg/dL 7-18 Serum or plasma creatinine measurement (mass/volume) 0.73 mg/dL 0.60-1.30 Serum or plasma urea nitrogen/creatinine mass ratio 15 NRG Serum or plasma creatinine measurement with calculation of estimated glomerular filtration rate > NRG Serum or plasma glucose measurement (mass/volume) 140 mg/dL 70-105 Serum or plasma calcium measurement (mass/volume) 7.7 mg/dL 8.5-10.1 Serum or plasma total bilirubin measurement (mass/volume) 0.8 mg/dL 0.1-1.0 Serum or plasma alkaline phosphatase measurement (enzymatic activity/volume) 90 U/L 40-136 Serum or plasma aspartate aminotransferase measurement (enzymatic activity/ volume) 68 U/L 5-34 Serum or plasma alanine aminotransferase measurement (enzymatic activity/volume ) 73 U/L 0-55 Serum or plasma protein measurement (mass/volume) 5.8 g/dL 6.4-8.2 Serum or plasma albumin measurement (mass/volume) 3.3 g/dL 3.2-4.5 Capillary blood glucose measurement by glucometer (mass/volume) - 05/23/16 06: 06 Capillary blood glucose measurement by glucometer (mass/volume) 139 mg/dL 70-110 Capillary blood glucose measurement by glucometer (mass/volume) - 05/23/16 10: 50 Capillary blood glucose measurement by glucometer (mass/volume) 175 mg/dL 70-110 Capillary blood glucose measurement by glucometer (mass/volume) - 05/23/16 14: 20 Capillary blood glucose measurement by glucometer (mass/volume) 68 mg/dL 70-110 Capillary blood glucose measurement by glucometer (mass/volume) - 05/23/16 15: 18 Capillary blood glucose measurement by glucometer (mass/volume) 81 mg/dL 70-110 Capillary blood glucose measurement by glucometer (mass/volume) - 05/23/16 18: 52 Capillary blood glucose measurement by glucometer (mass/volume) 140 mg/dL 70-110 Capillary blood glucose measurement by glucometer (mass/volume) - 05/24/16 05: 13 Capillary blood glucose measurement by glucometer (mass/volume) 159 mg/dL 70-110 Whole blood basic metabolic panel - 05/24/16 05:25 Serum or plasma sodium measurement (moles/volume) 137 mmol/L 135-145 Serum or plasma potassium measurement (moles/volume) 3.9 mmol/L 3.6-5.0 Serum or plasma chloride measurement (moles/volume) 102 mmol/L 98-107 Carbon dioxide 24 mmol/L 21-32 Serum or plasma anion gap determination (moles/volume) 11 mmol/L 5-14 Serum or plasma urea nitrogen measurement (mass/volume) 7 mg/dL 7-18 Serum or plasma creatinine measurement (mass/volume) 0.62 mg/dL 0.60-1.30 Serum or plasma urea nitrogen/creatinine mass ratio 11 NRG Serum or plasma creatinine measurement with calculation of estimated glomerular filtration rate > NRG Serum or plasma glucose measurement (mass/volume) 164 mg/dL 70-105 Serum or plasma calcium measurement (mass/volume) 7.9 mg/dL 8.5-10.1 Capillary blood glucose measurement by glucometer (mass/volume) - 05/24/16 12: 10 Capillary blood glucose measurement by glucometer (mass/volume) 187 mg/dL 70-110 Capillary blood glucose measurement by glucometer (mass/volume) - 05/24/16 14: 43 Capillary blood glucose measurement by glucometer (mass/volume) 173 mg/dL 70-110 Capillary blood glucose measurement by glucometer (mass/volume) - 05/24/16 19: 36 Capillary blood glucose measurement by glucometer (mass/volume) 257 mg/dL 70-110 Capillary blood glucose measurement by glucometer (mass/volume) - 05/25/16 01: 40 Capillary blood glucose measurement by glucometer (mass/volume) 146 mg/dL 70-110 Arterial blood gas measurement - 05/25/16 02:13 Blood pCO2 51 mm[Hg] 35-45 Blood pO2 185 mm[Hg] 79-93 Arterial blood bicarbonate measurement (moles/volume) 24 mmol/L 23-27 Arterial blood base excess by calculation -1.9 mmol/L - 2.5-2.5 Arterial blood oxygen saturation measurement 99 % 94-100 * Inhaled oxygen flow rate 90% NRG Arterial blood pH measurement with patient temperature correction 7.31 7.37-7.43 Arterial blood carbon dioxide, total measurement (moles/volume) 25.4 mmol/L 21.0-31.0 Body site RIGHT RADIAL NRG Assessment of wrist artery patency prior to arterial puncture YES- POS NRG Setting of ventilation mode YES NRG Measurement of body temperature 103.6 NRG Blood CBC with ordered manual differential panel - 05/25/16 02:14 Blood leukocytes automated count (number/volume) 5.6 10*3/uL 4.3-11.0 Blood erythrocytes automated count (number/volume) 4.85 10*6/uL 4.35-5.85 Venous blood hemoglobin measurement (mass/volume) 14.6 g/dL 11.5-16.0 Blood hematocrit (volume fraction) 43 % 35-52 Automated erythrocyte mean corpuscular volume 89 [foz_us] 80-99 Automated erythrocyte mean corpuscular hemoglobin (mass per erythrocyte) 30 pg 25-34 Automated erythrocyte mean corpuscular hemoglobin concentration measurement ( mass/volume) 34 g/dL 32-36 Automated erythrocyte distribution width ratio 13.2 % 10.0-14.5 Automated blood platelet count (count/volume) 208 10*3/uL 130-400 Automated blood platelet mean volume measurement 10.1 [foz_us] 7.4-10.4 Automated blood neutrophils/100 leukocytes 65 % 42-75 Automated blood lymphocytes/100 leukocytes 19 % 12-44 Blood monocytes/100 leukocytes 15 % NRG Automated blood eosinophils/100 leukocytes 1 % 0-10 Automated blood basophils/100 leukocytes 1 % 0-10 Blood neutrophils automated count (number/volume) 3.7 10*3 1.8-7.8 Blood lymphocytes automated count (number/volume) 1.1 10*3 1.0-4.0 Blood monocytes automated count (number/volume) 0.8 10*3 0.0-1.0 Automated eosinophil count 0.0 10*3/uL 0.0-0.3 Automated blood basophil count (count/volume) 0.1 10*3/uL 0.0-0.1 Manual blood segmented neutrophils/100 leukocytes 45 % NRG Blood band neutrophils/100 leukocytes 26 % NRG Manual blood lymphocytes/100 leukocytes 14 % NRG Blood erythrocyte morphology finding identification NORMAL NRG Blood lactic acid measurement (moles/volume) - 05/25/16 02:14 Blood lactic acid measurement (moles/volume) 1.0 mmol/L 0.5-2.0 Whole blood basic metabolic panel - 05/25/16 02:14 Serum or plasma sodium measurement (moles/volume) 135 mmol/L 135-145 Serum or plasma potassium measurement (moles/volume) 4.4 mmol/L 3.6-5.0 Serum or plasma chloride measurement (moles/volume) 103 mmol/L 98-107 Carbon dioxide 20 mmol/L 21-32 Serum or plasma anion gap determination (moles/volume) 12 mmol/L 5-14 Serum or plasma urea nitrogen measurement (mass/volume) 8 mg/dL 7-18 Serum or plasma creatinine measurement (mass/volume) 0.61 mg/dL 0.60-1.30 Serum or plasma urea nitrogen/creatinine mass ratio 13 NRG Serum or plasma creatinine measurement with calculation of estimated glomerular filtration rate > NRG Serum or plasma glucose measurement (mass/volume) 218 mg/dL 70-105 Serum or plasma calcium measurement (mass/volume) 8.3 mg/dL 8.5-10.1 Serum or plasma phosphate measurement (mass/volume) - 05/25/16 02:14 Serum or plasma phosphate measurement (mass/volume) 2.9 mg/dL 2.3-4.7 Magnesium - 05/25/16 02:14 Magnesium 1.5 mg/dL 1.8-2.4 Serum or plasma lithium measurement (moles/volume) - 05/25/16 02:14 BNP level 374.3 pg/mL <100.0 Bacterial blood culture - 05/25/16 02:15 Bacterial blood culture NG [facility] Fibrin D-dimer FEU measurement in platelet poor plasma (mass/volume) - 02:23 Fibrin D-dimer FEU measurement in platelet poor plasma (mass/volume) 10.71 ug/mL 0.00-0.49 PT panel in platelet poor plasma by coagulation assay - 05/25/16 02:23 Prothrombin time (PT) in platelet poor plasma by coagulation assay 13.7 s 12.2-14.7 INR in platelet poor plasma or blood by coagulation assay 1.1 0.8-1.4 Activated partial thromboplastin time (aPTT) in platelet poor plasma bycoagulation assay - 05/25/16 02:23 Activated partial thromboplastin time (aPTT) in platelet poor plasma bycoagulation assay 32 s 24-35 Bacterial blood culture - 05/25/16 02:23 Bacterial blood culture NG NR Arterial blood gas measurement - 05/25/16 03:50 Blood pCO2 37 mm[Hg] 35-45 Blood pO2 179 mm[Hg] 79-93 Arterial blood bicarbonate measurement (moles/volume) 23 mmol/L 23-27 Arterial blood base excess by calculation -0.9 mmol/L - 2.5-2.5 Arterial blood oxygen saturation measurement 99 % 94-100 * Inhaled oxygen flow rate 65% NRG Arterial blood pH measurement with patient temperature correction 7.42 7.37-7.43 Arterial blood carbon dioxide, total measurement (moles/volume) 24.4 mmol/L 21.0-31.0 Body site LEFT RADIAL NRG Assessment of wrist artery patency prior to arterial puncture YES- POS NRG Setting of ventilation mode NO NRG Measurement of body temperature 98.4 NRG Capillary blood glucose measurement by glucometer (mass/volume) - 05/25/16 07: 08 Capillary blood glucose measurement by glucometer (mass/volume) 241 mg/dL 70-110 Capillary blood glucose measurement by glucometer (mass/volume) - 05/25/16 12: 33 Capillary blood glucose measurement by glucometer (mass/volume) 273 mg/dL 70-110 Capillary blood glucose measurement by glucometer (mass/volume) - 05/25/16 14: 53 Capillary blood glucose measurement by glucometer (mass/volume) 269 mg/dL 70-110 Stool bacteria identification by culture - 05/25/16 17:30 Stool bacteria identification by culture N2 NRG Capillary blood glucose measurement by glucometer (mass/volume) - 05/25/16 21: 01 Capillary blood glucose measurement by glucometer (mass/volume) 329 mg/dL 70-110 Capillary blood glucose measurement by glucometer (mass/volume) - 05/26/16 05: 01 Capillary blood glucose measurement by glucometer (mass/volume) 213 mg/dL 70-110 Blood CBC with ordered manual differential panel - 05/26/16 05:32 Blood leukocytes automated count (number/volume) 4.5 10*3/uL 4.3-11.0 Blood erythrocytes automated count (number/volume) 4.11 10*6/uL 4.35-5.85 Venous blood hemoglobin measurement (mass/volume) 12.4 g/dL 11.5-16.0 Blood hematocrit (volume fraction) 37 % 35-52 Automated erythrocyte mean corpuscular volume 89 [foz_us] 80-99 Automated erythrocyte mean corpuscular hemoglobin (mass per erythrocyte) 30 pg 25-34 Automated erythrocyte mean corpuscular hemoglobin concentration measurement ( mass/volume) 34 g/dL 32-36 Automated erythrocyte distribution width ratio 12.8 % 10.0-14.5 Automated blood platelet count (count/volume) 199 10*3/uL 130-400 Automated blood platelet mean volume measurement 10.2 [foz_us] 7.4-10.4 Automated blood neutrophils/100 leukocytes 61 % 42-75 Automated blood lymphocytes/100 leukocytes 24 % 12-44 Blood monocytes/100 leukocytes 14 % NRG Automated blood eosinophils/100 leukocytes 0 % 0-10 Automated blood basophils/100 leukocytes 0 % 0-10 Blood neutrophils automated count (number/volume) 2.7 10*3 1.8-7.8 Blood lymphocytes automated count (number/volume) 1.1 10*3 1.0-4.0 Blood monocytes automated count (number/volume) 0.7 10*3 0.0-1.0 Automated eosinophil count 0.0 10*3/uL 0.0-0.3 Automated blood basophil count (count/volume) 0.0 10*3/uL 0.0-0.1 Manual blood segmented neutrophils/100 leukocytes 55 % NR Blood band neutrophils/100 leukocytes 4 % NRG Manual blood lymphocytes/100 leukocytes 25 % NRG Manual eosinophils/100 leukocytes in nose 0 % NR Manual blood basophils/100 leukocytes 0 % NR Manual blood lymphocytes variant/100 leukocytes 2 % NR Blood polychromasia detection by light microscopy SLIGHT [facility] Comprehensive metabolic panel - 05/26/16 05:32 Serum or plasma sodium measurement (moles/volume) 139 mmol/L 135-145 Serum or plasma potassium measurement (moles/volume) 3.9 mmol/L 3.6-5.0 Serum or plasma chloride measurement (moles/volume) 104 mmol/L 98-107 Carbon dioxide 25 mmol/L 21-32 Serum or plasma anion gap determination (moles/volume) 10 mmol/L 5-14 Serum or plasma urea nitrogen measurement (mass/volume) 10 mg/dL 7-18 Serum or plasma creatinine measurement (mass/volume) 0.63 mg/dL 0.60-1.30 Serum or plasma urea nitrogen/creatinine mass ratio 16 NRG Serum or plasma creatinine measurement with calculation of estimated glomerular filtration rate > NR Serum or plasma glucose measurement (mass/volume) 209 mg/dL 70-105 Serum or plasma calcium measurement (mass/volume) 8.4 mg/dL 8.5-10.1 Serum or plasma total bilirubin measurement (mass/volume) 0.4 mg/dL 0.1-1.0 Serum or plasma alkaline phosphatase measurement (enzymatic activity/volume) 99 U/L 40-136 Serum or plasma aspartate aminotransferase measurement (enzymatic activity/ volume) 31 U/L 5-34 Serum or plasma alanine aminotransferase measurement (enzymatic activity/volume ) 39 U/L 0-55 Serum or plasma protein measurement (mass/volume) 6.2 g/dL 6.4-8.2 Serum or plasma albumin measurement (mass/volume) 3.2 g/dL 3.2-4.5 Magnesium - 05/26/16 05:32 Magnesium 1.9 mg/dL 1.8-2.4 Capillary blood glucose measurement by glucometer (mass/volume) - 05/26/16 09: 57 Capillary blood glucose measurement by glucometer (mass/volume) 230 mg/dL 70-110 Capillary blood glucose measurement by glucometer (mass/volume) - 05/26/16 15: 07 Capillary blood glucose measurement by glucometer (mass/volume) 196 mg/dL 70-110 Capillary blood glucose measurement by glucometer (mass/volume) - 05/26/16 19: 52 Capillary blood glucose measurement by glucometer (mass/volume) 295 mg/dL 70-110 Capillary blood glucose measurement by glucometer (mass/volume) - 05/27/16 05: 12 Capillary blood glucose measurement by glucometer (mass/volume) 168 mg/dL 70-110 Capillary blood glucose measurement by glucometer (mass/volume) - 05/27/16 09: 36 Capillary blood glucose measurement by glucometer (mass/volume) 268 mg/dL 70-110 Capillary blood glucose measurement by glucometer (mass/volume) - 05/27/16 14: 36 Capillary blood glucose measurement by glucometer (mass/volume) 135 mg/dL 70-110 Capillary blood glucose measurement by glucometer (mass/volume) - 05/27/16 20: 06 Capillary blood glucose measurement by glucometer (mass/volume) 238 mg/dL 70-110 Capillary blood glucose measurement by glucometer (mass/volume) - 02/25/17 09: 44 Capillary blood glucose measurement by glucometer (mass/volume) 135 mg/dL 70-110 Capillary blood glucose measurement by glucometer (mass/volume) - 07/08/17 11: 15 Capillary blood glucose measurement by glucometer (mass/volume) 145 mg/dL 70-110 Complete blood count (CBC) with automated white blood cell (WBC) differential - 07/08/17 11:35 Blood leukocytes automated count (number/volume) 5.6 10*3/uL 4.3-11.0 Blood erythrocytes automated count (number/volume) 4.54 10*6/uL 4.35-5.85 Venous blood hemoglobin measurement (mass/volume) 13.8 g/dL 11.5-16.0 Blood hematocrit (volume fraction) 41 % 35-52 Automated erythrocyte mean corpuscular volume 90 [foz_us] 80-99 Automated erythrocyte mean corpuscular hemoglobin (mass per erythrocyte) 30 pg 25-34 Automated erythrocyte mean corpuscular hemoglobin concentration measurement ( mass/volume) 34 g/dL 32-36 Automated erythrocyte distribution width ratio 12.4 % 10.0-14.5 Automated blood platelet count (count/volume) 154 10*3/uL 130-400 Automated blood platelet mean volume measurement 9.9 [foz_us] 7.4-10.4 Automated blood neutrophils/100 leukocytes 58 % 42-75 Automated blood lymphocytes/100 leukocytes 28 % 12-44 Blood monocytes/100 leukocytes 10 % 0-12 Automated blood eosinophils/100 leukocytes 3 % 0-10 Automated blood basophils/100 leukocytes 1 % 0-10 Blood neutrophils automated count (number/volume) 3.3 10*3 1.8-7.8 Blood lymphocytes automated count (number/volume) 1.6 10*3 1.0-4.0 Blood monocytes automated count (number/volume) 0.6 10*3 0.0-1.0 Automated eosinophil count 0.2 10*3/uL 0.0-0.3 Automated blood basophil count (count/volume) 0.0 10*3/uL 0.0-0.1 Encounters ACCT No. Visit Date/Time Discharge Status Pt. Type Provider Facility Loc./Unit Complaint [id number] 07/02/2017 11:15:00 07/02/2017 12:19:00 DIS Outpatient BECKY ROSS, LIZ [facility] PREOP RECTOCELE, VAGINIAL PROLAPSE [id number] 02/25/2017 08:27:00 02/25/2017 11:55:00 DIS Outpatient MARIAM GOLDSTEIN MD [facility] ENDO SCREENING [id number] 02/23/2017 05:39:00 02/23/2017 14:33:00 DIS Outpatient MARIAM GOLDSTEIN MD [facility] PREOP SCREENING [id number] 05/22/2016 09:19:00 05/28/2016 09:03:00 DIS Inpatient WORTHY DO, RUSTY K [facility] 4TH DEHYRDATION [id number] 11/21/2015 11:43:00 11/21/2015 23:59:59 CLS Outpatient SANFORD ROSS, KESHAWN Cunningham [facility] RAD RTC TEAR LEFT [id number] 05/09/2015 22:50:00 05/10/2015 01:06:00 DIS Emergency PHAN ROSS, SHILO Reza [facility] ER VOMITING,ABD PAIN [id number] 03/05/2015 15:23:00 03/05/2015 23:59:59 CLS Outpatient ANTONINA HERNÁNDEZ MD [facility] RAD CHRONIC COUGH [id number] 06/26/2014 08:03:00 06/26/2014 23:59:59 CLS Outpatient KAYLAN HOBBS MD [facility] CARD PALPITATIONS,MR [id number] 06/23/2014 13:40:00 06/23/2014 23:59:59 CLS Outpatient KAYLAN HOBBS MD [facility] CARD CT,PALPITATIONS, MR [id number] 05/19/2014 10:53:00 05/19/2014 23:59:59 CLS Outpatient ANTONINA HERNÁNDEZ MD [facility] RAD CHRONIC COUGH [id number] 07/08/2017 10:56:00 ACT Outpatient BECKY ROSS, LIZ Matson [facility] WS RECTOCELE,VAGINAL PROLAPSE [id number] 10/13/2012 10:53:00 Document Registration [id number] 07/07/2012 06:00:00 Document Registration [id number] 06/30/2012 08:28:00 Document Registration [id number] 05/21/2012 15:41:00 Document Registration
[2017-07-09] MEDS ORDERED: ONDANSETRON 8 MG (ZOFRAN) ORAL DISSOLVE TAB PO ONE (10:45)
[2017-07-09 12:30] VITALS: BP 144/85
--- NOTE | 2017-07-09 13:25 | Anesthesia-Regional Post-Op ---
Regional Patient Condition Mental Status: Alert, Oriented x3 Circulation: Same as Pre-Op Headache: Absent Sensation: Full Recovery Motor Block: Absent Post Op Complications Complications None Follow Up Care/Instructions Patient Instructions None needed. Anesthesia/Patient Condition Patient is doing well, no complaints, stable vital signs, no apparent adverse anesthesia problems. No complications reported per nursing. YESENIA GAMA CRNA Jul 09, 2017 13:25
[2017-07-09] MEDS ORDERED: IBUPROFEN 800 MG (MOTRIN) TAB PO SCH (15:00)
== END 2017-07-09 13:40 | disposition home or self-care (01) ==
LOC: SDC 10:56 → WS 15:52 → SDC 07-09 13:40
PROVIDERS: ATTEND Obstetrics & Gynecology
DX: N81.10 Cystocele, unspecified (principal); Z96.641 Presence of right artificial hip joint; I10 Essential (primary) hypertension; E11.9 Type 2 diabetes mellitus without complications; Z79.899 Other long term (current) drug therapy
CPT/HCPCS: 36415; 82962; 85025; 94664

== ENCOUNTER 2018-02-10 17:42 | Observation (INO) | payer BC, OTHER ==
[~2018-02-10] VITALS: Ht 172.7 cm; Wt 98.5 kg
[2018-02-10] VITALS (9 sets, daily range): BP systolic 135–183; BP diastolic 66–109
[~2018-02-10 17:42] MED LIST changes: +DOCU-143 PO; +IBUP-1780 PO; -METF1000 PO; +METF10002 PO; -METF500T4 PO; +METF500T5 PO; +OXYC-465 PO
[2018-02-10 18:03] LABS: BASOPHILS % (AUTO) 1 % (0-10); EOSINOPHILS # (AUTO) 0.1 10^3/uL (0.0-0.3); EOSINOPHILS % (AUTO) 2 % (0-10); HEMATOCRIT 41 % (35-52); HEMOGLOBIN 14.2 G/DL (11.5-16.0); LYMPHOCYTES # (AUTO) 1.5 X 10^3 (1.0-4.0); LYMPHOCYTES % (AUTO) 24 % (12-44); MEAN CORPUSCULAR HEMOGLOBIN 31 PG (25-34); MEAN CORPUSCULAR HGB CONC 35 G/DL (32-36); MEAN CORPUSCULAR VOLUME 89 FL (80-99); MEAN PLATELET VOLUME 9.3 FL (7.4-10.4); MONOCYTES # (AUTO) 0.6 X 10^3 (0.0-1.0); MONOCYTES % (AUTO) 9 % (0-12); NEUTROPHILS # (AUTO) 4.2 X 10^3 (1.8-7.8); NEUTROPHILS % (AUTO) 65 % (42-75); PLATELET COUNT 200 10^3/uL (130-400); RED BLOOD COUNT 4.59 10^6/uL (4.35-5.85); RED CELL DISTRIBUTION WIDTH 12.5 % (10.0-14.5); WHITE BLOOD COUNT 6.4 10^3/uL (4.3-11.0)
--- NOTE | 2018-02-10 18:05 | ED Neurological Problem ---
General Stated Complaint: NECK PAIN,HANDS TINGLING,ARMS HEAVY, L LEG RACHEL Source: patient History of Present Illness Date Seen by Provider: Feb 10, 2018 Time Seen by Provider: 17:45 Initial Comments PT ARRIVES VIA POV--SENT HERE FROM [facility] AT 0800 THIS AM, SHE WAS AT THE BANK, AND TURNED HER HEAD/NECK AND HAD SUDDEN PAIN IN NECK AND SCALP, BOTH ARMS WENT TINGLY AND FELT HEAVY ALSO HAVING WEAKNESS OF LEFT ARM AND LEFT LEG--STATES LEFT LEG "RACHEL" NO PAIN ANYWHERE NOW NO HEADACHE NO VISION CHANGES NO CHEST PAIN OR SHORTNESS OF BREATH NO PALPITATIONS NO NAUSEA/VOMITING NO SWEATS NO HISTORY OF SIMILAR PCP: DR. HERNÁNDEZ Allergies and Home Medications Allergies Coded Allergies: No Known Drug Allergies (Unverified , 07/02/17) Home Medications Amlodipine Besylate 10 Mg Tablet, 10 MG PO HS, (Reported) Aripiprazole 5 Mg Tablet, 5 MG PO HS, (Reported) Bupropion HCl 150 Mg Tablet.er, 150 MG PO BID, (Reported) Docusate Sodium 100 Mg Capsule, 100 MG PO BID Prescribed by: LIZ LOZANO on 07/08/17 1319 Enalapril Maleate 20 Mg Tablet, 20 MG PO BID, (Reported) Estrogens Conjugated 1.25 Mg Tab, 1.25 MG PO HS, (Reported) Glyburide 5 Mg Tablet, 5 MG PO BID, (Reported) Ibuprofen 800 Mg Tablet, 800 MG PO Q6H PRN for PAIN Prescribed by: LIZ LOZANO on 07/08/17 1319 Metformin HCl 1,000 Mg Tablet, 1,000 MG PO BID, (Reported) Multivitamin 1 Each Tablet, 1 TAB PO DAILY, (Reported) Nadolol 40 Mg Tablet, 40 MG PO DAILY, (Reported) Oxycodone HCl/Acetaminophen 1 Each Tablet, 1-2 TAB PO Q4H PRN for PAIN Prescribed by: LIZ LOZANO on 07/08/17 1319 Sitagliptin Phosphate 100 Mg Tablet, 100 MG PO HS, (Reported) Temazepam 15 Mg Capsule, 15 MG PO HS, (Reported) Vitamin B Complex 1 Each Capsule, 1 EACH PO DAILY, (Reported) [Vitamin C] , 1 TAB PO HS, (Reported) Patient Home Medication List Home Medication List Reviewed: Yes Review of Systems Constitutional: no symptoms reported Eyes: No Symptoms Reported Ears, Nose, Mouth, Throat: no symptoms reported Respiratory: no symptoms reported Cardiovascular: no symptoms reported Gastrointestinal: no symptoms reported Genitourinary: no symptoms reported Musculoskeletal: see HPI Skin: no symptoms reported Psychiatric/Neurological: See HPI; Denies Cognitive Dysfunction, Denies Headache; Numbness, Tingling, Weakness Endocrine: No Symptoms Reported Hematologic/Lymphatic: No Symptoms Reported Past Lusfjrw-Eblitb-Mkjyby Hx Patient Social History Alcohol Use: Denies Use Recreational Drug Use: No Former Smoker, Quit: Jul 02, 1990 Recent Foreign Travel: No Contact w/Someone Who Travel: No Recent Hopitalizations: Yes (APR 2016-FOOD POISONING) Immunizations Up To Date Tetanus Booster (TDap): Unknown PED Vaccines UTD: No Date of Pneumonia Vaccine: Apr 28, 2016 Date of Influenza Vaccine: Mar 30, 2017 Seasonal Allergies Seasonal Allergies: No Past Medical History Surgeries: Yes (CYSTOCOELE/RECTOCOELE REPAIR; BLADDER SLING; RIGHT TOTAL HIP REPLACEMENT; LEFT SHOULDER SCOPE; LEFT KNEE SCOPE; HYST/BSO; COLONOSCOPY) Bladder Surgery, Hysterectomy, Joint Replacement, Oophorectomy, Orthopedic, Rectal Respiratory: Yes (PULMONARY EDEMA ) Currently Using CPAP: No Currently Using BIPAP: No Cardiac: Yes High Cholesterol, Hypertension Neurological: No 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 Disorders: Yes (RECTOCELE, CYSTOCELE) Female 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 Disorders: Denies VALIDATION ARCHITECT History: Hysterectomy, Menopausal Sexually Transmitted Disease: No HIV/AIDS: No Genitourinary: No Gastrointestinal: Yes Gastroesophageal Reflux Musculoskeletal: Yes (RIGHT HIP REPLACEMENT) Endocrine: Yes Diabetes, Non-Insulin dep HEENT: No Loss of Vision: Denies Hearing Impairment: Denies Cancer: No Psychosocial: Yes Anxiety, Depression Integumentary: No Blood Disorders: No Adverse Reaction/Blood Tranf: No (N/A) Physical Exam Vital Signs Vital Signs - First Documented 02/10/18 17:50 Temp 98.2 Pulse 90 Resp 18 B/P (MAP) 169/93 (118) Pulse Ox 94 Capillary Refill : Height, Weight, BMI Height: 5'7.00" Weight: 226lbs. 8.0oz. 102.364953me; 35.5 BMI Method:Stated General Appearance: WD/WN, no apparent distress HEENT: PERRL/EOMI Neck: non-tender, full range of motion, supple, normal inspection; No carotid bruit Respiratory: normal breath sounds, no respiratory distress, no accessory muscle use Cardiovascular: normal peripheral pulses, regular rate, rhythm, no edema, no JVD, no murmur Peripheral Pulses: 2+ Dorsalis Pedis (R), 2+ Left Dors-Pedis (L), 2+ Radial Pulses (R), 2+ Radial Pulses (L) Gastrointestinal: normal bowel sounds, non tender, soft, no organomegaly, no pulsatile mass Extremities: non-tender, no pedal edema, no calf tenderness, normal capillary refill 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 ); other ( MILD LEFT PRONATOR DRIFT; MILD LEFT LEG WEAKNESS) Crainal Nerves: normal hearing, normal speech, PERRL; No facial droop Coordination/Gait: normal finger to nose, normal gait (AMBULATES TO AND FROM BATHROOM ON OWN, SLOWLY BUT WITHOUT DIFFICULTY) Motor/Sensory: no sensory deficit, pronator drift (L) (MILD), weak motor strength LLE (MILD) Skin: normal color, warm/dry Stroke Onset of Symptoms Date of Onset of Symptoms: Feb 10, 2018 Time of Symptom Onset: 08:00 Onset of Symptoms: Yes Symptoms onset unknown: No NIH Stroke Scale Assessment Select: Initial Level of Consciousness: 0=Alert (0), Level of Consciousness- Questions: 0=Answers both month/age (0), LOC Commands: 0=Performs both tasks (0) , Gaze: Normal (0), Visual Faria: 0=No visual loss (0), Facial Movement ( Facial Paresis): 0=Normal symmetrical mnt (0), Motor Function-Arms Right: 0=No drift (0), Motor Function-Arms Left: 1=Drift (1), Motor Function-Legs Right: 0= No drift (0), Motor Function-Legs Left: 1=Drift (1), Limb Ataxia: 0=Absent (0), Sensory: 0=Normal:no loss (0), Best Language: 0=No aphasia (0), Dysarthria: 0= Normal (0), Extinction & Inattention: 0=No abnormality (0), Total: 2 Stroke Thrombolytic Exclusion Age 18 or Over: Yes Acute intenal hemorrhage: No History of CVA: No Uncontrolled Coagulation Defec: No Intracranial Hemorrhage: No Severe Hypertension: No GI or Bleed: No Subarachnoid Hemorrhage: No Intracranial Neoplasm/Aneurysm: No Oral Anticoagulants: No Surgery or Trauma: No Puncture of Non-Compressible V: No Recent CPR: No Diabetic Hemorrhagic Retinopat: No Organ Biopsy: No Recent Obstetric Delivery: No Glucose: No Significant Hepatic Dysfunctio: No NIH Stoke Scale >22: No Bacterial Endocarditis: No Pericarditis: No Improving Symptoms: No Platelets: No TPA Contraindication: No IV - TPa Received IV - TPa Procedure Performed?: No (PT'S SYMPTOMS > 3 HOURS--BEGAN AT 0800 THIS AM) Progress/Results/Core Measures Results/Orders Lab Results Laboratory Tests Test 02/10/18 17:50 02/10/18 19:14 02/10/18 19:22 Range/Units White Blood Count 6.4 4.3-11.0 10^3/uL Red Blood Count 4.59 4.35-5.85 10^6/uL Hemoglobin 14.2 11.5-16.0 G/DL Hematocrit 41 35-52 % Mean Corpuscular Volume 89 80-99 FL Mean Corpuscular Hemoglobin 31 25-34 PG Mean Corpuscular Hemoglobin Concent 35 32-36 G/DL Red Cell Distribution Width 12.5 10.0-14.5 % Platelet Count 200 130-400 10^3/uL Mean Platelet Volume 9.3 7.4-10.4 FL Neutrophils (%) (Auto) 65 42-75 % Lymphocytes (%) (Auto) 24 12-44 % Monocytes (%) (Auto) 9 0-12 % Eosinophils (%) (Auto) 2 0-10 % Basophils (%) (Auto) 1 0-10 % Neutrophils # (Auto) 4.2 1.8-7.8 X 10^3 Lymphocytes # (Auto) 1.5 1.0-4.0 X 10^3 Monocytes # (Auto) 0.6 0.0-1.0 X 10^3 Eosinophils # (Auto) 0.1 0.0-0.3 10^3/uL Basophils # (Auto) 0.0 0.0-0.1 10^3/uL Prothrombin Time 13.8 12.2-14.7 SEC INR Comment 1.1 0.8-1.4 Activated Partial Thromboplast Time 27 24-35 SEC D-Dimer 0.47 0.00-0.49 UG/ML Sodium Level 135 135-145 MMOL/L Potassium Level 4.3 3.6-5.0 MMOL/L Chloride Level 101 98-107 MMOL/L Carbon Dioxide Level 25 21-32 MMOL/L Anion Gap 9 5-14 MMOL/L Blood Urea Nitrogen 11 7-18 MG/DL Creatinine 0.73 0.60-1.30 MG/DL Estimat Glomerular Filtration Rate > 60 BUN/Creatinine Ratio 15 Glucose Level 302 H 70-105 MG/DL Calcium Level 8.9 8.5-10.1 MG/DL Total Bilirubin 0.3 0.1-1.0 MG/DL Aspartate Amino Transf (AST/SGOT) 69 H 5-34 U/L Alanine Aminotransferase (ALT/SGPT) 118 H 0-55 U/L Alkaline Phosphatase 85 40-136 U/L Troponin I < 0.30 <0.30 NG/ML Total Protein 7.3 6.4-8.2 GM/DL Albumin 4.1 3.2-4.5 GM/DL Urine Color YELLOW Urine Clarity CLEAR Urine pH 6.5 5-9 Urine Specific [employer] 1.005 L 1.016-1.022 Urine Protein 1+ H NEGATIVE Urine Glucose (UA) 2+ H NEGATIVE Urine Ketones NEGATIVE NEGATIVE Urine Nitrite NEGATIVE NEGATIVE Urine Bilirubin NEGATIVE NEGATIVE Urine Urobilinogen NORMAL NORMAL MG/DL Urine Leukocyte Esterase NEGATIVE NEGATIVE Urine RBC (Auto) NEGATIVE NEGATIVE Urine RBC NONE /HPF Urine WBC RARE /HPF Urine Squamous Epithelial Cells 2-5 /HPF Urine Crystals NONE /LPF Urine Bacteria NEGATIVE /HPF Urine Casts NONE /LPF Urine Mucus NEGATIVE /LPF Urine Culture Indicated NO Glucometer 222 H 70-110 MG/DL My Orders Orders - MAXWELLKENDRICKA K DO Iohexol Injection (Omnipaque 350 Mg/Ml 1 (02/10/18 18:15) Ns (Ivpb) (Sodium Chloride 0.9%) (02/10/18 18:15) Orphenadrine Injection (Norflex Injectio (02/10/18 20:15) Medications Given in ED Current Medications Medications Dose Ordered Sig/Jhonatan Route Start Time Stop Time Status Last Admin Dose Admin Orphenadrine Citrate 60 mg ONCE ONCE IV 02/10/18 20:15 02/10/18 20:16 DC 02/10/18 20:42 60 MG Vital Signs/I&O 02/10/18 02/10/18 17:50 19:00 Temp 98.2 Pulse 90 90 Resp 18 16 B/P (MAP) 169/93 (118) 183/104 Pulse Ox 94 98 Progress Progress Note : Progress Note PT SITTING IN CHAIR, WITH LEGS CROSSED, SMILING AND TALKING WITH FRIEND THROUGHOUT REMAINDER OF ER STAY. PT C/O LEFT LEG FEELS LIKE IT IS "TENSING" UP, NOT ACTUAL CRAMP, AND NO PAIN. NOT OCCURRING ANYWHERE ELSE STATES BOTH HANDS STILL FEEL TINGLY NO CHANGES IN STRENGTH, PT STILL CAN FREELY MOVE LEFT ARM AND LEG, BUT WITH MILD WEAKNESS. Initial ECG Impression Date: Feb 10, 2018 Initial ECG Impression Time: 18:56 Initial ECG Rate: 87 Initial ECG Rhythm: Normal Sinus Initial ECG Comparisson: Unchanged (FROM 05/22/16) Diagnostic Imaging Comments CT HEAD--NO ACUTE PROCESS, PER RADIOLOGIST REPORT @ 1839 CXR--NO ACUTE PROCESS, PER RADIOLOGIST REPORT @ 1840 CT ANGIOGRAM HEAD AND NECK--NO ACUTE PROCESS, PER RADIOLOGIST REPORT @ 2000 Reviewed: Reviewed by Me Departure Communication (Admissions) 2000--SPOKE WITH DR. HERNÁNDEZ, ACCEPTS PT FOR ADMIT. Impression Primary Impression: BILATERAL HAND PARESTHESIAS Additional Impressions: LEFT SIDED WEAKNESS-MILD HX OF NIDDM Hx of hyperlipidemia Elevated liver enzymes Disposition: ADMITTED INPATIENT Condition: Stable Admissions Decision to Admit Reason: Admit from ER (General) Decision to Admit/Date: Feb 10, 2018 Time/Decision to Admit Time: 20:00 Departure-Patient Inst. Referrals: ANTONINA HERNÁNDEZ MD (PCP/Family) Primary Care Physician ALFREDO ARREOLA DO Feb 10, 2018 18:05
[2018-02-10] MEDS ORDERED: NS 250 ML (IVPB) BAG IV ONE (18:15)
[2018-02-10] MEDS ORDERED: IOHEXOL 350 MG/ML 100 ML (OMNIPAQUE 350) VIAL IV ONE (18:15)
[2018-02-10 18:25] LABS: ALANINE AMINOTRANSFERASE 118 U/L (0-55); ALBUMIN 4.1 GM/DL (3.2-4.5); ALKALINE PHOSPHATASE 85 U/L (40-136); BILIRUBIN,TOTAL 0.3 MG/DL (0.1-1.0); BUN/CREATININE RATIO 15; CALCIUM 8.9 MG/DL (8.5-10.1); CARBON DIOXIDE 25 MMOL/L (21-32); CHLORIDE 101 MMOL/L (98-107); CREATININE SERUM 0.73 MG/DL (0.60-1.30); FIBRIN DEGRADATION PRODUCTS 0.47 UG/ML (0.00-0.49); GFR ESTIMATED > 60; GLUCOSE 302 MG/DL (70-105); INR 1.1 (0.8-1.4); POTASSIUM 4.3 MMOL/L (3.6-5.0); PROTHROMBIN TIME PATIENT 13.8 SEC (12.2-14.7); SODIUM 135 MMOL/L (135-145); TOTAL PROTEIN 7.3 GM/DL (6.4-8.2)
--- NOTE | 2018-02-10 18:32 | Diagnostic Imaging Report ---
INDICATION: Abnormal sensation, unable to ambulate, legs buckling. COMPARISON: None. FINDINGS: Ventricles normal in size, shape and position. There is no midline shift or mass effect. There is no hemorrhage or evidence of acute ischemia. There is no dense vessel sign. No extra-axial fluid collection is seen. The bony calvarium, visualized paranasal sinuses and mastoids are normal. IMPRESSION: Negative CT head. Dictated by: Dictated on workstation # [id number]
--- NOTE | 2018-02-10 18:33 | Diagnostic Imaging Report ---
INDICATION: Neck pain and tingling in hands and heaviness in arms. EXAMINATION: Frontal chest was obtained at 6:01 p.m. COMPARISON: 05/26/2016. FINDINGS: Heart and mediastinal silhouette are normal in appearance. The lungs are clear. There is no pneumothorax or pleural fluid. There is improved aeration of the lung bases compared to the prior study. IMPRESSION: Negative chest with no acute abnormality. Dictated by: Dictated on workstation # [id number]
[2018-02-10 19:38] LABS: BILIRUBIN,URINE NEGATIVE (NEGATIVE); CLARITY,URINE CLEAR; COLOR,URINE YELLOW; GLUCOSE, URINE (UA) 2+ (NEGATIVE); KETONES,URINE NEGATIVE (NEGATIVE); LEUKOCYTE ESTERASE ,URINE NEGATIVE (NEGATIVE); NITRITE,URINE NEGATIVE (NEGATIVE); PH,URINE 6.5 (5-9); PROTEIN,URINE 1+ (NEGATIVE); UROBILINOGEN,URINE NORMAL (NORMAL)
--- NOTE | 2018-02-10 19:54 | Diagnostic Imaging Report ---
PROCEDURE: CT angiography of the head and CT angiography of the neck with and without contrast. TECHNIQUE: Contiguous noncontrast images were obtained from the skull base through the vertex. After intravenous contrast administration, helical CT angiography of the neck was performed. Source data was reformatted into multiple MIP projections. Delayed post contrast acquisition was also obtained. INDICATION: Numbness and tingling, mental status changes, confusion. COMPARISON: None. FINDINGS: The visualized arch anatomy is normal. The course and caliber of the vertebral, common carotid, and internal carotid arteries are normal. The [place] of [place] is intact. There is no aneurysm, AVM, or vascular occlusion. No irregular plaque formation is identified. There is no abnormal enhancement or mass. Venous structures appear grossly unremarkable. IMPRESSION: Negative CT angio head and neck. Dictated by: Dictated on workstation # [id number]
[2018-02-10 19:57] LABS: BACTERIA,URINE NEGATIVE /HPF; WBC,URINE RARE /HPF
[2018-02-10] MEDS ORDERED: ORPHENADRINE 60 MG/2 ML (NORFLEX) AMP IV ONE (20:15)
[2018-02-10] MEDS ORDERED: HYDROcodone/APAP 7.5 MG/325 MG (LORTAB, LORCET PLUS) TABLET PO ONE (22:13)
[2018-02-10] MEDS: HYDROcodone/APAP 7.5 MG/325 MG (LORTAB, LORCET PLUS) TABLET PO PRN (22:16)
[2018-02-10] MEDS ORDERED: KETOROLAC 30 MG/ML VIAL ONE (23:00)
[2018-02-10] MEDS: KETOROLAC 30 MG/ML VIAL IVP PRN (23:07)
[2018-02-11] VITALS (8 sets, daily range): BP systolic 117–136; BP diastolic 66–85
[2018-02-11] MEDS: HYDROcodone/APAP 7.5 MG/325 MG (LORTAB, LORCET PLUS) TABLET PO PRN ×2 (03:07→11:00)
[2018-02-11 03:31] LABS: BASOPHILS # (AUTO) 0.1 10^3/uL (0.0-0.1); BASOPHILS % (AUTO) 1 % (0-10); EOSINOPHILS # (AUTO) 0.1 10^3/uL (0.0-0.3); EOSINOPHILS % (AUTO) 2 % (0-10); HEMATOCRIT 40 % (35-52); LYMPHOCYTES # (AUTO) 1.7 X 10^3 (1.0-4.0); LYMPHOCYTES % (AUTO) 25 % (12-44); MEAN CORPUSCULAR HEMOGLOBIN 32 PG (25-34); MEAN CORPUSCULAR HGB CONC 35 G/DL (32-36); MEAN CORPUSCULAR VOLUME 90 FL (80-99); MEAN PLATELET VOLUME 9.5 FL (7.4-10.4); MONOCYTES # (AUTO) 0.8 X 10^3 (0.0-1.0); MONOCYTES % (AUTO) 12 % (0-12); NEUTROPHILS # (AUTO) 4.2 X 10^3 (1.8-7.8); NEUTROPHILS % (AUTO) 62 % (42-75); PLATELET COUNT 184 10^3/uL (130-400); RED BLOOD COUNT 4.39 10^6/uL (4.35-5.85); RED CELL DISTRIBUTION WIDTH 12.5 % (10.0-14.5); WHITE BLOOD COUNT 6.8 10^3/uL (4.3-11.0)
[2018-02-11] MEDS ORDERED: CATHETER FLUSH 10 ML SYR IV PRN (03:45)
[2018-02-11 03:52] LABS: ALANINE AMINOTRANSFERASE 102 U/L (0-55); ALBUMIN 3.9 GM/DL (3.2-4.5); ALKALINE PHOSPHATASE 80 U/L (40-136); BILIRUBIN,TOTAL 0.4 MG/DL (0.1-1.0); BUN/CREATININE RATIO 17; CALCIUM 8.8 MG/DL (8.5-10.1); CARBON DIOXIDE 25 MMOL/L (21-32); CHLORIDE 101 MMOL/L (98-107); CHOLESTEROL 179 MG/DL (< 200); GFR ESTIMATED > 60; GLUCOSE 176 MG/DL (70-105); HDL CHOLESTEROL 32 MG/DL (40-60); SODIUM 135 MMOL/L (135-145); TOTAL PROTEIN 6.8 GM/DL (6.4-8.2); TRIGLYCERIDES 270 MG/DL (<150); VLDL CHOLESTEROL 54 MG/DL (5-40)
--- NOTE | 2018-02-11 04:06 | History & Physicial ---
History of Present Illness History of Present Illness Reason for visit/HPI 62-year-old female admitted for observation during the p.m. of February 10, 2018 after having an event where she twisted her head followed by numbness and tingling of the upper extremity. Patient as known hypertension as well as diabetes and is currently also under treatment for both of these conditions. She does report yesterday late afternoon she was at a drive-through bank where she twisted her head to the left abruptly and had immediate pain in the back of the neck just below the skull. She states that shortly afterwards tingling started in the upper extremities bilaterally. She was so concerned she went to the emergency department whereat that time her left upper extremity was starting to become weak. She has never had an event like this happen before and she has no history of stroke. In the emergency department she underwent head CT as well as neck CT followed by CTA of the head and neck which were all negative. Patient was admitted for further monitoring and MR of the head and neck in the morning of February 11, 2018. Throughout the early a.m. of February 11 patient was noted to have lack of use of the left upper extremity basically flaccid. Improbably only 90 percent use of the left lower extremity. Initially she had fairly significant left upper extremity pain due to cramping. The pain was controlled with Toradol 30illigrams intravenously. Throughout this she has maintained normal speech and normal muscle tone of the face. She is intact to sensation of the left upper and lower extremity. Date of Admission Feb 10, 2018 at 20:16 Date Seen by Provider: Feb 11, 2018 Time Seen by Provider: 03:30 I consulted on this patient on 02/11/18 04:01 Attending Physician Jose De Jesus Hernández MD Admitting Physician Jose De Jesus Hernández MD Consult Allergies and Home Medications Allergies Coded Allergies: No Known Drug Allergies (Unverified , 07/02/17) Home Medications Amlodipine Besylate 10 Mg Tablet, 10 MG PO HS, (Reported) Aripiprazole 5 Mg Tablet, 5 MG PO HS, (Reported) Bupropion HCl 150 Mg Tablet.er, 150 MG PO BID, (Reported) Docusate Sodium 100 Mg Capsule, 100 MG PO BID Prescribed by: LIZ LOZANO on 07/08/17 1319 Enalapril Maleate 20 Mg Tablet, 20 MG PO BID, (Reported) Estrogens Conjugated 1.25 Mg Tab, 1.25 MG PO HS, (Reported) Glyburide 5 Mg Tablet, 5 MG PO BID, (Reported) Ibuprofen 800 Mg Tablet, 800 MG PO Q6H PRN for PAIN Prescribed by: LIZ LOZANO on 07/08/17 1319 Metformin HCl 1,000 Mg Tablet, 1,000 MG PO BID, (Reported) Multivitamin 1 Each Tablet, 1 TAB PO DAILY, (Reported) Nadolol 40 Mg Tablet, 40 MG PO DAILY, (Reported) Oxycodone HCl/Acetaminophen 1 Each Tablet, 1-2 TAB PO Q4H PRN for PAIN Prescribed by: LIZ LOZANO on 07/08/17 1319 Sitagliptin Phosphate 100 Mg Tablet, 100 MG PO HS, (Reported) Temazepam 15 Mg Capsule, 15 MG PO HS, (Reported) Vitamin B Complex 1 Each Capsule, 1 EACH PO DAILY, (Reported) [Vitamin C] , 1 TAB PO HS, (Reported) Patient Home Medication List Home Medication List Reviewed: Yes Past Fffdkaz-Ngiwid-Xlxhim Hx Patient Social History Marrital Status: Number of Children: 2 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) Alcohol Use: Denies Use Recreational Drug Use: No Smoking Status: Former Smoker Former Smoker, Quit: Jul 02, 1990 Physical Abuse Screen: No Sexual Abuse: No Recent Foreign Travel: No Contact w/other who traveled: No Recent Hopitalizations: No Recent Infectious Disease Expo: No Immunizations Up To Date Tetanus Booster (TDap): Unknown Pediatric: No Date of Pneumonia Vaccine: Apr 28, 2016 Date of Influenza Vaccine: Mar 30, 2017 Seasonal Allergies Seasonal Allergies: No Surgeries Yes Bladder Surgery, Hysterectomy, Joint Replacement, Oophorectomy, Orthopedic, Rectal Respiratory Yes (PULMONARY EDEMA ) Currently Using CPAP: No Currently Using BIPAP: No Cardiovascular Yes High Cholesterol, Hypertension Neurological No 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 System Hx 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 Disorders: Yes (RECTOCELE, CYSTOCELE) Sexually Transmitted Disease: No HIV/AIDS: No Female 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 Disorders: 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, 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 Genitourinary No Gastrointestinal Yes Gastroesophageal Reflux Musculoskeletal Yes (RIGHT HIP REPLACEMENT) Endocrine History of Endocrine Disorders: Yes Endocrine Disorders: Diabetes, Non-Insulin dep HEENT History of HEENT Disorders: No Loss of Vision: Denies Hearing Impairment: Denies Cancer No Psychosocial History of Psychiatric Problem: Yes Behavioral Health Disorders: Depression Integumentary History of Skin or Integumenta: No Blood Transfusions History of Blood Disorders: No Adverse Reaction to a Blood Tr: No (N/A) Constitutional: see HPI Physical Exam Vital Signs Vital Signs - First Documented 02/10/18 02/10/18 17:50 21:00 Temp 98.2 Pulse 90 Resp 18 B/P (MAP) 169/93 (118) Pulse Ox 94 O2 Delivery Room Air Capillary Refill : Less Than 3 Seconds Height, Weight, BMI Height: 5'8.00" Weight: 250lbs. 8.0oz. 113.075947cn; 35.5 BMI Method:Estimated General Appearance: No Apparent Distress Eyes: Bilateral Eye Normal Inspection HEENT: PERRL/EOMI, Pharynx Normal, Other (tongue is protruding midline. Symmetrical facial muscles.) Neck: Non Tender, Supple Respiratory: Lungs Clear Cardiovascular: Regular Rate, Rhythm (and there is no ectopy) Gastrointestinal: Soft Rectal: Deferred Extremity: Other (she is noted to have flaccid left upper extremity from the shoulder down. The right upper extremity is normal. She is able to milk dorsiflex the left foot and she is unable to raise the leg off the bed.) Neurologic/Psychiatric: Alert, Oriented x3, Normal Mood/Affect, Facial Droop ( not present) Reflexes: 0 Knee (R), 0 Knee (L) Skin: Normal Color Comments NAME: TYRA BROWNING MED REC#: [id number] PT STATUS: ADM Oscar : 1955 PHYSICIAN: OLESYA GARCIA MD ADMIT DATE: 02/10/18/ICU Signed Date of Exam: 02/10/18 CT HEAD WO-R/O STROKE INDICATION: Abnormal sensation, unable to ambulate, legs buckling. COMPARISON: None. FINDINGS: Ventricles normal in size, shape and position. There is no midline shift or mass effect. There is no hemorrhage or evidence of acute ischemia. There is no dense vessel sign. No extra-axial fluid collection is seen. The bony calvarium, visualized paranasal sinuses and mastoids are normal. IMPRESSION: Negative CT head. Dictated by: Dictated on workstation # [id number] Dict: 02/10/18 182 Trans: 02/10/182016 Interpreted by: JOSE DE JESUS CARROLL Electronically signed by: JOSE DE JESUS CARROLL 02/10/182016 NAME: TYRA BROWNING [facility] REC#: [id number] PT STATUS: ADM Oscar : 1955 PHYSICIAN: OLESYA GARCIA MD ADMIT DATE: 02/10/18/ICU Signed Date of Exam: 02/10/18 CT ANGIO HEAD/NECK PROCEDURE: CT angiography of the head and CT angiography of the neck with and without contrast. TECHNIQUE: Contiguous noncontrast images were obtained from the skull base through the vertex. After intravenous contrast administration, helical CT angiography of the neck was performed. Source data was reformatted into multiple MIP projections. Delayed post contrast acquisition was also obtained. INDICATION: Numbness and tingling, mental status changes, confusion. COMPARISON: None. FINDINGS: The visualized arch anatomy is normal. The course and caliber of the vertebral, common carotid, and internal carotid arteries are normal. The [place] of [place] is intact. There is no aneurysm, AVM, or vascular occlusion. No irregular plaque formation is identified. There is no abnormal enhancement or mass. Venous structures appear grossly unremarkable. IMPRESSION: Negative CT angio head and neck. Dictated by: Dictated on workstation # [id number] Dict: 02/10/181947 Trans: 02/10/182016 Interpreted by: JOSE DE JESUS CARROLL Electronically signed by: JOSE DE JESUS CARROLL 02/10/182016 Assessment/Plan Assessment and Plan 1. Left upper and lower extremity flaccidity--etiology at this time is uncertain. I spoke with [facility] stroke team at 0330. At this point if she did have a stroke it would be very specific and small. They would be willing to take her in transfer but she does need MRA of the head and neck and since this is on schedule at [facility] within 3 hours, will go ahead and perform this here and get back with them regarding the results. There was no thrombolytics given since and no confirmed diagnosis of stroke. She may also have potentially a cervical neck finding and this will be ruled in or ruled out in the morning by MRI 2. Diabetes mellitus type II -She'll be initiated back on her home medications. For now she is also on sliding scale insulin 3. Hypertension -Continue to monitor her blood pressure. Initially her blood pressure was up but now is normalized. She will be continued on her home medications and this will be started later this morning. Admission Diagnosis 1. Left upper and lower extremity flaccidity 2. Diabetes mellitus type II 3. Hypertension Admission Status: Observation Clinical Quality Measures DVT/VTE Risk/Contraindication: Risk Factor Score Per Nursin RFS Level Per Nursing on Admit: 4+=Very High Stroke: Date of last known well: Feb 10, 2018 Time of last known well: 08:00 Symptoms onset unknown: No JOSE DE JESUS HERNÁNDEZ MD Feb 11, 2018 04:06
[2018-02-11] MEDS ORDERED: inSUlin ASPART (NovoLOG) 1 UNIT/0.01 ML (CHARGE PER UNIT) SC SCH ×2 (06:00→12:00)
[2018-02-11] MEDS: KETOROLAC 30 MG/ML VIAL IVP PRN ×2 (06:25→12:46)
[2018-02-11] MEDS: CATHETER FLUSH 10 ML SYR IV SCH ×2 (06:25→14:37)
[2018-02-11] MEDS ORDERED: ATORVASTATIN 40 MG (LIPITOR) TABLET ONE (06:42)
--- NOTE | 2018-02-11 08:59 | Physical Therapy Progress Note ---
Therapy Progress Note Per nursing, pt will be in DI all morning. Will attempt PT evaluation this afternoon. ISAMAR RED PT Feb 11, 2018 08:59
--- NOTE | 2018-02-11 09:06 | Occ Therapy Progress Note ---
Therapy Progress Note OT order received and chart reviewed. Attempted evaluation on pt. However, pt. has went for imaging. Nursing states that it will likely take all morning. Will check back in p.m. as time allows and as pt. is medically appropriate. 0830 HU BENAVIDES OT Feb 11, 2018 09:06
[2018-02-11] MEDS ORDERED: GADOBUTROL 10 MMOL/10 ML (GADAVIST) VIAL IV ONE (09:15)
--- NOTE | 2018-02-11 10:19 | Diagnostic Imaging Report ---
PROCEDURE: MR imaging of the brain with and without contrast. TECHNIQUE: Multiplanar, multisequence MR imaging of the brain was performed with and without contrast. Indication: Left-sided weakness Multiplanar images utilizing both T1 and T2-weighted sequences were obtained. Additional images following the administration of intravenous contrast were also performed. There are no previous MRI brain examinations available for comparison. The CT head and CTA performed on 02/10/2018, failed to show any sign of an acute intracranial abnormality. On the diffusion series of this exam there is no abnormal signal arising from the brain that would suggest an area of acute ischemia. Furthermore there is no abnormal enhancement on the postcontrast series that would indicate a neoplastic or infectious process. The axial postcontrast series is somewhat less than optimal due to artifact. There is no mass, shift of midline or hemorrhage to suggest an acute intracranial abnormality. The ventricles are not abnormally dilated. There is no abnormal signal arising from the brain on the FLAIR series to suggest demyelinating disease. There is only mild cortical atrophy present. The orbits are symmetrical and within normal limits. The sinuses are generally clear. The 7th and 8th nerve complexes are unremarkable. The sella is not enlarged and the expected flow voids are evident bilaterally. Impression: 1. There is no evidence for an acute intracranial abnormality, in particular there is no sign of an area of acute ischemia. 2. There is no abnormal enhancement to suggest neoplastic or infectious process and there is no sign of demyelinating disease. 3. These results were discussed with Dr. Edis Haddad. Dictated by: Dictated on workstation # [id number]
--- NOTE | 2018-02-11 10:36 | Diagnostic Imaging Report ---
PROCEDURE: MR angiography of the brain without the use of contrast. TECHNIQUE: 3D qwqz-wg-miphga non contrast enhanced MR angiography of the head was performed. A source data was reformatted into rotating MIP projections. INDICATION: Left-sided weakness. Turned head and felt pop and pain. COMPARISON: MRI brain without and with IV contrast from earlier today. CT head and neck 02/10/2018. FINDINGS: No high-grade narrowing or aneurysm involving the basilar, bilateral intracranial internal carotid, vertebral, anterior cerebral, middle cerebral or posterior cerebral arteries. origin right AGILE TEST LEAD. IMPRESSION: No high-grade narrowing or aneurysm involving the major intracranial arteries. Dictated by: Dictated on workstation # [id number]
--- NOTE | 2018-02-11 11:14 | Diagnostic Imaging Report ---
PROCEDURE: MR angiography neck with and without contrast. TECHNIQUE: Pre and post contrast-enhanced MR angiography of the neck was performed. Source data was reformatted into rotating MIP projections. Indication: Left-sided weakness There are no previous MRA examinations available for comparison. The CTA head and neck exam of 02/10/2018 failed to show any sign of a hemodynamically significant stenosis of the common or internal carotid arteries. There is no sign of an injury to the vertebral arteries either. On this exam, there is still no evidence for a hemodynamically significant stenosis of the common or internal carotid arteries. The vertebral arteries are patent and codominant. No other vascular abnormalities are identified. IMPRESSION: 1. There is no evidence for a hemodynamically significant stenosis of either carotid system. 2. The vertebral arteries are patent and codominant. Dictated by: Dictated on workstation # [id number]
--- NOTE | 2018-02-11 11:21 | Diagnostic Imaging Report ---
PROCEDURE: MR imaging cervical spine with and without contrast. TECHNIQUE: Multiplanar and multisequence MRI of the cervical spine was performed with and without contrast. INDICATION: Sudden onset of left-sided weakness after turning head. COMPARISON: CT head and neck 02/10/2018. MRI brain without and with IV contrast 02/11/2018. FINDINGS: There are short segment abnormal T2 signal within the cervical cord at the level of C3. This has a relatively symmetric bilateral central distribution, right slightly greater than left. There is no associated enhancement or T1 signal to suggest hemorrhage. The signal in the cervical spinal cord is otherwise normal. Broad-based disc bulges at C4-C5 and C5-C6 result in tovdtfqh-we-sxvfqpsh spinal canal narrowing. There is more moderate spinal canal narrowing at C6-C7. Uncovertebral and facet arthropathy result in advanced bilateral neural foraminal narrowing at C5-C6 and on the right at C6-C7. There is more moderate neural foraminal narrowing bilaterally at C3-C4, C4-C5 and on the left at C6-C7. The visualized paravertebral soft tissues are unremarkable. IMPRESSION: 1. Short segment abnormal T2 signal within the cervical cord at the level of C3. This distribution is central within the hemicord bilaterally, right slightly greater than left. Given the distribution and sudden onset of symptoms, findings are most compatible with a spinal cord infarct. Although transverse myelitis or neuromyelitis optica could have a similar appearance, these are considered much less likely given the distribution and sudden onset. 2. Broad-based disc bulges result in xdxdgvts-xv-ukrratlx spinal canal narrowing at C4-C5, C5-C6 and moderate spinal canal narrowing at C6-C7. There is no other abnormal signal on the cervical spinal cord. 3. No acute osseous findings. Dictated by: Dictated on workstation # [id number]
--- NOTE | 2018-02-11 11:31 | Discharge Inst-Simple/Standard ---
Discharge Inst-Standard Discharge Medications New, Converted or Re-Newed RX: Other (Please take aspirin 81mg now) Patient Instructions/Follow Up Plan of Care/Instructions/FU: Fu with neurology by Rajan Baker [facility] today Activity as Tolerated: No Discharge Diet: Other Diet (NPO for now) ANTONINA HERNÁNDEZ MD Feb 11, 2018 11:31
[2018-02-11] MEDS ORDERED: ASPIRIN 325 MG (5 GR) TABLET PO NR (11:45)
--- NOTE | 2018-02-12 14:07 | Physician Query-Final Dx ---
DAVID EDGAR 02/12/18 1407: Final Diagnosis Give Final Diagnosis Please give Final Diagnosis ANTONINA HERNÁNDEZ MD 02/15/18 0816: Final Diagnosis Give Final Diagnosis 1. Left upper extremity and left lower extremity flaccidity, acute onset -Etiology at this point is undetermined although spinal cord infarct versus transverse myelitis is suggested by MRA 2. Diabetes mellitusadult onset known 3. Hypertension--treated DAVID EDGAR Feb 12, 2018 14:07 ANTONINA HERNÁNDEZ MD Feb 15, 2018 08:16
[2018-02-17] MEDS ORDERED: CLD600T PO (09:10)
[2018-02-17] MEDS ORDERED: PRD10T PO (09:10)
[2018-02-17] MEDS ORDERED: INSU100V16 SC (09:10)
[2018-02-17] MEDS ORDERED: ATOR20TA66 PO (09:10)
[2018-02-17] MEDS ORDERED: INSU100I29 SQ (09:10)
[2018-02-17] MEDS ORDERED: ASPI-999 PO (09:10)
[2018-02-17] MEDS ORDERED: ENAL10TA PO (09:10)
--- NOTE | 2018-03-03 07:36 | Discharge Summary ---
Diagnosis/Chief Complaint Date of Admission Feb 10, 2018 at 21:00 Date of Discharge Feb 11, 2018 at 14:25 Discharge Date: Feb 11, 2018 Admission Diagnosis Admission Diagnosis 1. Left upper and lower extremity flaccidity--etiology at this time is uncertain. 2. Diabetes mellitus type II 3. Hypertension Discharge Diagnosis 1. 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 Other etiology transverse myelitis 2. Diabetes mellitus type II 3. Hypertension Reason Hospital Visit 62-year-old female admitted for observation during the p.m. of February 10, 2018 after having an event where she twisted her head followed by numbness and tingling of the upper extremity. Patient as known hypertension as well as diabetes and is currently also under treatment for both of these conditions. She does report yesterday late afternoon she was at a drive-through bank where she twisted her head to the left abruptly and had immediate pain in the back of the neck just below the skull. She states that shortly afterwards tingling started in the upper extremities bilaterally. She was so concerned she went to the emergency department whereat that time her left upper extremity was starting to become weak. She has never had an event like this happen before and she has no history of stroke. In the emergency department she underwent head CT as well as neck CT followed by CTA of the head and neck which were all negative. Patient was admitted for further monitoring and MR of the head and neck in the morning of February 11, 2018. Throughout the early a.m. of February 11 patient was noted to have lack of use of the left upper extremity basically flaccid. Improbably only 90 percent use of the left lower extremity. Initially she had fairly significant left upper extremity pain due to cramping. The pain was controlled with Toradol 30illigrams intravenously. Throughout this she has maintained normal speech and normal muscle tone of the face. She is intact to sensation of the left upper and lower extremity. Discharge Summary Hospital Course Hospital Course Patient was admitted to cardiac stepdown due to her hypertension. From the emergency department all within a few hours patient developed more intense symptoms of left upper and left lower extremity pain as well as lack of use. Patient had MRI of the head and neck ordered through the emergency department during the evening of February 10 2018. I had multiple phone calls from nurse during the late evening and early a.m. of February 11 due to her intense pain as well as progressively worsening muscle use of the left upper and left lower extremity. I presented to the patient's room bedside midmorning for evaluation of her. With her findings of lack of use of her left upper and left lower limb , I had contacted the stroke unit at [facility]. After long discussion with the stroke center physician sample preparation supervisor it was determined that she should go ahead and have her MRI of the head and neck but to also order MRA with and without contrast of the head and neck. Following the results of the study she was found to have possible spinal cord infarction. was again contacted and accepted patient in transfer. There were no medications started until she was evaluated by neurology at . Patient agreed with transfer and all arrangements were completed. Procedures None. Discharge Physical Examination Allergies: Coded Allergies: No Known Drug Allergies (Unverified , 07/02/17) General Appearance: Alert, Oriented X3, No Acute Distress Respiratory: Clear to Auscultation Cardiovascular: Regular Rate Abdominal: Soft Extremities: Other (she has minimal motion of the left lower extremity. Her left upper extremity is flaccid) Discharge Home Medications Reviewed and agree with Discharge Medication list on patient's Discharge Instruction sheet Instructions to Patient/Family Please see electronic discharge instructions given to patient. Clinical Quality Measures DVT/VTE Risk/Contraindication: Risk Factor Score Per Nursin RFS Level Per Nursing on Admit: 4+=Very High Stroke: Date of last known well: Feb 10, 2018 Time of last known well: 08:00 Symptoms onset unknown: No ANTONINA HERNÁNDEZ MD Mar 03, 2018 07:36
== END 2018-02-11 14:25 | disposition short-term general hospital (02) ==
LOC: EDUNIT# 17:42 → ER 17:44 → ICU 20:16 → UNDOADMOB 20:16 → ICU 21:00
PROVIDERS: ADMIT Family Medicine; ATTEND Family Medicine
DX: G81.04 Flaccid hemiplegia affecting left nondominant side (principal); E11.9 Type 2 diabetes mellitus without complications; I10 Essential (primary) hypertension; E78.00 Pure hypercholesterolemia, unspecified; K21.9 Gastro-esophageal reflux disease without esophagitis; Z79.84 Long term (current) use of oral hypoglycemic drugs
CPT/HCPCS: 36415; 70450; 70496; 70498; 70544; 70549; 70553; 71045; 72156; 80053; 80061; 81000; 82962; 84484; 85025; 85379; 85610; 85730; 93005; 93041; 96374

== ENCOUNTER 2018-02-15 15:07 | Inpatient (IN) | payer BC ==
[~2018-02-15] VITALS: Ht 172.7 cm; Wt 98.5 kg
[2018-02-15] MEDS ORDERED: TEMAZEPAM 15 MG (RESTORIL) CAP PO PRN (15:15)
[2018-02-15] MEDS ORDERED: ACETAMINOPHEN 325 MG TABLET PO PRN (15:15)
[2018-02-15 17:34] VITALS: BP 140/82
[2018-02-15] MEDS ORDERED: inSUlin ASPART (NovoLOG) 1 UNIT/0.01 ML (CHARGE PER UNIT) SC SCH (18:15)
[2018-02-15] MEDS: buPROPion SR 150 MG (WELLBUTRIN SR) TAB PO SCH (18:26)
[2018-02-15] MEDS: inSUlin ASPART (NovoLOG) 1 UNIT/0.01 ML (CHARGE PER UNIT) SC SCH ×2 (18:26→20:45)
[2018-02-15] MEDS: metFORMIN 500 MG (GLUCOPHAGE) TAB PO SCH (18:26)
[2018-02-15] MEDS: CALCIUM CARB + VIT D 600 MG (CALCARB + D) TAB PO SCH (18:29)
[2018-02-15] MEDS: inSUlin DETERMIR 1 UNIT/0.01 ML (LEVEMIR) CHARGE PER UNIT SQ SCH (20:45)
[2018-02-15] MEDS: ATORVASTATIN 20 MG (LIPITOR) TABLET PO SCH (20:45)
[2018-02-15] MEDS ORDERED: NON-FORMULARY MEDICATION 1 EA EA SC SCH (21:00)
[2018-02-16 05:44] VITALS: BP 167/83
[2018-02-16] MEDS: CALCIUM CARB + VIT D 600 MG (CALCARB + D) TAB PO SCH ×2 (06:34→17:26)
[2018-02-16] MEDS: inSUlin ASPART (NovoLOG) 1 UNIT/0.01 ML (CHARGE PER UNIT) SC SCH ×4 (06:34→20:49)
[2018-02-16] MEDS: buPROPion SR 150 MG (WELLBUTRIN SR) TAB PO SCH ×2 (06:35→16:58)
[2018-02-16] MEDS: PANTOPRAZOLE 20 MG TABLET (PROTONIX) PO SCH (06:35)
[2018-02-16] MEDS: predniSONE 10 MG TAB PO SCH (06:35)
[2018-02-16] MEDS: LINAGLIPTIN (TRADJENTA) 5 MG TABLET PO SCH (06:35)
[2018-02-16] MEDS: metFORMIN 500 MG (GLUCOPHAGE) TAB PO SCH ×2 (06:35→16:58)
[2018-02-16] MEDS ORDERED: NON-FORMULARY MEDICATION 1 EA EA PO SCH ×2 (07:00→09:00)
--- NOTE | 2018-02-16 08:07 | History & Physicial ---
History of Present Illness History of Present Illness Reason for visit/HPI Patient states on Thursday she went to the [place] [employer] and had neck pain in car. In the sitting is more numb and tingling and then felt sick. Patient went to urgent care and told him to go to the emergency room. At emergency room left leg would not work. Left leg and arm could not pull-up. At 2 a.m. I could not move my left arm and left leg and could not urinate. Patient transferred to [facility]. Patient has transverse myelitis. Patient put on high doses of prednisone. Previous surgeries right hip replacement, left rotator cuff, complete hysterectomy, anterior rectal repair area Family history only heart problem. Denies asthma TB diabetes lung disease cancer Date of Admission Feb 15, 2018 at 17:09 Time Seen by Provider: 07:50 I consulted on this patient on 02/16/18 08:00 Attending Physician Edward Mccoy MD Admitting Physician Jose De Jesus Haddad MD Consult Allergies and Home Medications Allergies Coded Allergies: No Known Drug Allergies (Unverified , 07/02/17) Home Medications Amlodipine Besylate 10 Mg Tablet, 10 MG PO HS, (Reported) Aripiprazole 5 Mg Tablet, 5 MG PO HS, (Reported) Bupropion HCl 150 Mg Tablet.er, 150 MG PO BID, (Reported) Docusate Sodium 100 Mg Capsule, 100 MG PO BID Prescribed by: LIZ LOZANO on 07/08/17 131 Enalapril Maleate 20 Mg Tablet, 20 MG PO BID, (Reported) Estrogens Conjugated 1.25 Mg Tab, 1.25 MG PO HS, (Reported) Glyburide 5 Mg Tablet, 5 MG PO BID, (Reported) Ibuprofen 800 Mg Tablet, 800 MG PO Q6H PRN for PAIN Prescribed by: LIZ LOZANO on 07/08/17 1319 Metformin HCl 1,000 Mg Tablet, 1,000 MG PO BID, (Reported) Multivitamin 1 Each Tablet, 1 TAB PO DAILY, (Reported) Nadolol 40 Mg Tablet, 40 MG PO DAILY, (Reported) Oxycodone HCl/Acetaminophen 1 Each Tablet, 1-2 TAB PO Q4H PRN for PAIN Prescribed by: LIZ LOZANO on 07/08/17 1319 Sitagliptin Phosphate 100 Mg Tablet, 100 MG PO HS, (Reported) Temazepam 15 Mg Capsule, 15 MG PO HS, (Reported) Vitamin B Complex 1 Each Capsule, 1 EACH PO DAILY, (Reported) [Vitamin C] , 1 TAB PO HS, (Reported) Patient Home Medication List Home Medication List Reviewed: Yes Past Kqslzev-Wrihia-Qzlvhy Hx Patient Social History Employed/Student: employed Alcohol Use: Denies Use Recreational Drug Use: No Smoking Status: Former Smoker Former Smoker, Quit: Jul 02, 1990 Type Used: Cigarettes Physical Abuse Screen: No Sexual Abuse: No Recent Foreign Travel: No Contact w/other who traveled: No Recent Hopitalizations: No Recent Infectious Disease Expo: No Immunizations Up To Date Tetanus Booster (TDap): Unknown Pediatric: No Date of Pneumonia Vaccine: Apr 28, 2016 Date of Influenza Vaccine: Mar 30, 2017 Seasonal Allergies Seasonal Allergies: No Surgeries Yes Bladder Surgery, Hysterectomy, Joint Replacement, Oophorectomy, Orthopedic, Rectal Respiratory Yes (PULMONARY EDEMA ) Currently Using CPAP: No Currently Using BIPAP: No Cardiovascular Yes High Cholesterol, Hypertension Neurological No 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 System Hx 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 Disorders: Yes (RECTOCELE, CYSTOCELE) Sexually Transmitted Disease: No HIV/AIDS: No 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, 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 Genitourinary No Gastrointestinal Yes Gastroesophageal Reflux Musculoskeletal Yes (RIGHT HIP REPLACEMENT) Endocrine History of Endocrine Disorders: Yes Endocrine Disorders: Diabetes, Non-Insulin dep HEENT History of HEENT Disorders: No Loss of Vision: Denies Hearing Impairment: Denies Cancer No Psychosocial History of Psychiatric Problem: Yes Behavioral Health Disorders: Anxiety, Depression Integumentary History of Skin or Integumenta: No Blood Transfusions History of Blood Disorders: No Adverse Reaction to a Blood Tr: No (N/A) Family Medical History Family Hx: Alcoholism Cardiovascular disease Psychosocial problem Constitutional: weakness EENTM: no symptoms reported Respiratory: no symptoms reported Cardiovascular: no symptoms reported Gastrointestinal: no symptoms reported Genitourinary: other (Unable to void, 9 urinates too frequently) Physical Exam Vital Signs Vital Signs - First Documented 02/15/18 17:34 Temp 97.9 Pulse 63 Resp 22 B/P (MAP) 140/82 (101) Pulse Ox 95 O2 Delivery Room Air Capillary Refill : Height, Weight, BMI Height: 5'8.00" Weight: 217lbs. 1.0oz. 98.119037od; 33.0 BMI Method:Estimated General Appearance: No Apparent Distress, WD/WN Eyes: Bilateral Eye Normal Inspection HEENT: Normal ENT Inspection Neck: Full Range of Motion, Normal Inspection Respiratory: Lungs Clear, No Accessory Muscle Use, No Respiratory Distress Cardiovascular: Regular Rate, Rhythm, No Murmur Gastrointestinal: Non Tender, Soft Assessment/Plan Assessment and Plan Transfer myelitis. Diabetes. Problems urinating Admission Diagnosis Admission Status: Inpatient Order (span 2 midnights) Reason for Inpatient Admission: Transverse myelitis. Diabetes. On prednisone causing elevated blood sugars. Weakness of left side of extremity and problem urinating too much Clinical Quality Measures DVT/VTE Risk/Contraindication: Risk Factor Score Per Nursin RFS Level Per Nursing on Admit: 4+=Very High JUAREZ ENRIQUEZ DO Feb 16, 2018 08:07
[2018-02-16] MEDS: ASPIRIN 81 MG CHEW (CHILDREN'S ASA) PO SCH (08:48)
[2018-02-16] MEDS: ESTROGENS CONJ 0.625 MG (PREMARIN) TAB PO SCH (08:48)
[2018-02-16] MEDS: ENALAPRIL 10 MG (VASOTEC) TAB PO SCH (08:48)
--- NOTE | 2018-02-16 08:53 | Physical Therapy Evaluation ---
PT Evaluation-General Medical Diagnosis Admission Date Feb 15, 2018 at 17:09 Medical Diagnosis: Transverse Myelitis Onset Date: Feb 10, 2018 Therapy Diagnosis Therapy Diagnosis: debility/weakness Height/Weight Height (Feet): 5 Height (Inches): 8.00 Weight (Pounds): 217 Weight (Ounces): 1.0 Precautions Precautions/Isolations: Standard Precautions Weight Bear Status Right Lower Extremity: Right Weight Bearing/Tolerated Left Lower Extremity: Left Weight Bearing/Tolerated Referral Physician: Gaby Reason for Referral: Evaluation/Treatment Medical History Pertinent Medical History: DM, HTN Additional Medical History pulmonary edema Current History 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 Urgent care to ER to ICU with rapid progression of left UE becoming flaccid. Transfer to . 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 She states, and is adamant, that the gait belt is not to be placed on her and not to touch her. She is very independent. Pain Numeric Pain Scale: 0-No Pain Location: No Pain Reported Objective Patient Orientation: Normal For Age Problem Solving: Good ROM/Strength ROM Lower Extremities bilateral LE WNL Strenght Lower Extremities left knee flexion/extension 4+/5; hip flexion 3-/5; DF/PF 4+/5 right knee flexion/extension 5/5; hip flexion 5/5; DF/PF 5/5 Integumentary/Posture Integumentary refer to nursing notes Bowel Incontinence: No Bladder Incontinence: No Posture WFL Neuromuscular (Tone, Coordination, Reflexes) slightly diminished proprioception right LE due to weakness Sensory Vision: Functional Hearing: Functional Sensation Right Lower Extremit: Intact Sensation Left Lower Extremity: Intact Transfers Functional [place] Measure 0=Not Assessed/NA 4=Minimal Assistance 1=Total Assistance 5=Supervision or Setup 2=Maximal Assistance 6=Modified [place] 3=Moderate Assistance 7=Complete IndependenceIRFPAI Quality Coding Scale 6 Independent with activity with or without an assistive device 5 Patient requires set up or clean up by helper. Patient completes activity by themselves 4 Supervision or touching assist (CGA). [place] provide cues , steadying assist 3 The helper provides less than half the effort to complete the activity 2 The helper provides more than half the effort to complete the activity 1 Dependent. The helper does all the effort to complete an activity 7 Patient refused to complete or attempt activity 9 The patient did not perform the activity before the current illness or injury 88 Not attempted due to Medical conditions or safety concerns Transfers (B, C, W/C) (FIM): 7 Scootin Rollin Roll Left to Right (QC): 6 Supine to/from Sit: 7 Sit to/from Stand: 7 Sit to Lying (QC): 6 Lying to Sitting/Side of Bed(Q: 6 Sit to Stand (QC): 6 Chair/Afl-uq-Htwmc Xfer(QC): 6 Car Transfer (QC): 6 Gait Does the Patient Walk?: Yes Mode of Locomotion: Walk Anticipated Mode of Locomotion: Walk Gait (FIM): 7 Distance (FIM): 3=150 ft Walk 10 feet (QC): 6 Walk 50 ft with 2 Turns(QC): 6 Walk 150 ft (QC): 6 Walking 10ft/uneven surface-QC: 6 Distance: >1500' Gait Level of Assist: 7 Gait Assistive Device: None Comments/Gait Description on all terrains/patient does require standing recovery periods due to left LE fatigue, however, recovers quickly. Patient ambulated on rocks, ramp, hill, and staggered curb/street walk with left LE on curb and right on street. Wheelchair Training Does the Pt Use a Wheelchair?: No Stairs Stairs (FIM): 6 #of Steps: 48 Level of Assist: 6 1 Step (curb) (QC): 6 4 Steps (QC): 6 12 Steps (QC): 6 Balance Sitting Static: Normal Sitting Dynamic: Normal Standing Static: Good Standing Dynamic: Fair Picking up an Object (QC): 6 Assessment/Needs 62 y.o. female, will benefit from skilled PT to address dynamic balance issues and left LE weakness. Patient is highly motivated with the progress she has made and is determined to return to home [place]. 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 Rehab Potential: Good PT Mcc Goals Mcc Goals PT Mcc Goals Time Frame: Feb 20, 2018 Transfers (B,C,W/C) (FIM): 7 Sit to Lying (QC): 6 Lying-Sitting on Side/Bed(QC): 6 Sit to Stand (QC): 6 Rollin Roll Left to Right (QC): 6 Chair/Sil-gx-Dtohf Xfer(QC): 6 Car Transfer (QC): 6 Does the Patient Walk: Yes Gait (FIM): 7 Gait distance (FIM): 3=150 ft Distance: >1500' Walk 10 feet (QC): 6 Walk 10ft-Uneven Surface(QC): 6 Walk 50ft with 2 Turns (QC): 6 Walk 150 ft (QC): 6 Gait Level of Assist: 7 Gait Assistive Device: None Stairs (FIM): 6 # of Steps: 48 1 Step (curb) (QC): 6 4 Steps (QC): 6 12 Steps (QC): 6 Stairs Level Of Assist: 6 Picking up an Object (QC): 6 PT Plan Problem List Problem List: Activity Tolerance, Functional Strength Treatment/Plan Treatment Plan: Continue Plan of Care Treatment Plan: Education, Functional Activity Geo, Functional Strength, Group Therapy, Gait, Safety, Therapeutic Exercise, Transfers Treatment Duration: Feb 20, 2018 Frequency: At least 5 of 7 days/Wk (IRF) Estimated Hrs Per Day: 1.5 hours per day Patient and/or Family Agrees t: Yes Safety Risks/Education Patient Education: Gait Training, Safety Issues Teaching Recipient: Patient Teaching Methods: Demonstration, Discussion Response to Teaching: Verbalize Understanding, Return Demonstration Discharge Recommendations Therapy D/C Recommendations: Home Independently, Physical Therapy Outpatient Time/GCodes Time In: 745 Time Out: 845 Total Billed Treatment Time: 60 Total Billed Treatment 1 visit EVModC 30 FA x 2 30 min SANAM VILLEGAS PT Feb 16, 2018 08:53
[2018-02-16] MEDS ORDERED: OMEP20CA12 PO (11:28)
[2018-02-16] MEDS ORDERED: ESTR2TAB PO (11:28)
--- NOTE | 2018-02-16 12:43 | Occupational Therapy Eval ---
OT Evaluation-General/PLF Medical Diagnosis Admission Date Feb 15, 2018 at 17:09 Medical Diagnosis: Transverse Myelitis Onset Date: Feb 10, 2018 Therapy Diagnosis Therapy Diagnosis: decr self care, weakness, decr coord, decr funct mobility Height/Weight Height (Feet): 5 Height (Inches): 8.00 Weight (Pounds): 217 Weight (Ounces): 1.0 Precautions Precautions/Isolations: Standard Precautions Safety Interventions: None Referral Physician: Gaby Referral Reason: Evaluation/Treatment Medical History Pertinent Medical History: DM, GERD, HTN Additional Medical History Depression. L rotator cuff repair. R total hip. Bladder sling Current History Pt developed numbness and weakness L side and thought to be acute infarct spinal cord. Transferred to [facility] and dx with acute transverse myelitis, neurogenic bladder. On steroids Reviewed History: Yes Social History Home: Single Level Current Living Status: Alone Entry Into Home: Level Entry ADL-Prior Level of Function ADL PLOF Comments Pt reported that she has been bale to manage all of her basic self care needs. 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 DME/Equipment Comments She only has bathtub with no shower and plans to shower at her mother's house. Occupation: residential substance abuse counselor Drive Self: Yes OT Current Status Subjective Pt seen in room, up in recliner, agreeable to OT. Pain reported 0/10. Pt adamantly refused gait belt and said to let her have chances for balance recovery. Appearance Alert, cooperative Mental Status/Objective Patient Orientation: Person, Place, Time, Situation Current Glasses/Contacts: No Hearing Aids: No Dentures/Partials: No Hand Dominance: Right Upper Extremity ROM Grossly WFL bilat. No lag noted with L UE Upper Extremity Coordination Some incoord noted L hand Upper Extremity Sensation Pt reported numbness in tips of fingers bilaterally Upper Extremity Strength Grossly 4/5 bilat, with a little weakness noted L shoulder. Pt reported old rotator cuff surgery. Some hand weakness L, with decreased finger abd/add but able to do intrinsic exercises ADL-Treatment ADL-Current Pt got up from recliner and walked to bathroom without help. Very slight variations in balance observed. She has been cleared to be up ad parris by PT. She reported having a little difficulty hooking her bra and used modified techniques for dressing. Pt toileted, showered, dressed, groomed. Pt left up in bed, all needs met. Functional [place] Measure 0=Not Assessed/NA 4=Minimal Assistance 1=Total Assistance 5=Supervision or Setup 2=Maximal Assistance 6=Modified [place] 3=Moderate Assistance 7=Complete IndependenceIRFPAI Quality Coding Scale 6 Independent with activity with or without an assistive device 5 Patient requires set up or clean up by helper. Patient completes activity by themselves 4 Supervision or touching assist (CGA). [place] provide cues , steadying assist 3 The helper provides less than half the effort to complete the activity 2 The helper provides more than half the effort to complete the activity 1 Dependent. The helper does all the effort to complete an activity 7 Patient refused to complete or attempt activity 9 The patient did not perform the activity before the current illness or injury 88 Not attempted due to Medical conditions or safety concerns Eating (FIM): 7 (Pt reported that she has been able to open packages, cut her food, feed heself, get a drink without assistince. Confirmed by nursing) Eating (QC): 6 Grooming (FIM): 7 (Stood at sink to brush teeth, comb hair. Washed face and hands in shower. ) Oral Hygiene (QC): 6 Bathing (FIM): 6 (Washed and dried all parts. Turned water on and off and retrieved towels. Shower bench, grab bars, hand held shower) Shower/Bathe Self (QC): 6 Upper Body Dressing (FIM): 6 (Pt used modified technique to fasten bra in front and turn it around. Doffed and donned shirt without assistance. Retrieved clean clothes and put dirty ones away) Upper Body Dressing (QC): 6 Lower Body Dressing (FIM): 6 (Modified technique for doffing and donning pants and briefs. Able to get socks and shoes off and on without help, including tying laces) Lower Body Dressing (QC): 6 On/Off Footwear (QC): 6 Toileting (FIM): 6 (On and of tall toilet, using grab bar, to manage clothing and hygiene without help) Toileting Hygiene (QC): 6 Toilet/Commode Transfer (FIM): 6 (On/off tall toilet, using grab bar) Toilet Transfer (QC): 6 Shower Transfer (FIM): 6 (In/out of shower and on/off shower bench, using grab bar) Education OT Patient Education: Modified ADL techniques, Purpose of tx/functional activities, Rehab process, Safety issues, Transfer techniques, Use of adapted equipment Teaching Recipient: Patient Teaching Methods: Discussion Response to Teaching: Verbalize Understanding, Return Demonstration OT Mcfp Goals Mcfp Goals Time Frame: Feb 19, 2018 Eating (FIM): 7 Eating (QC): 6 Groomin Oral Hygiene (QC): 6 Bathing(FIM): 6 Shower/Bathe Self (QC): 6 Upper Body Dressing(FIM): 6 Upper Body Dressing (QC): 6 Lower Body Dressing(FIM): 6 Lower Body Dressing (QC): 6 On/Off Footwear (QC): 6 Toileting(FIM): 6 Toileting Hygiene (QC): 6 Toilet/Commode Transfer(FIM): 6 Toilet/Commode Transfer (QC): 6 Shower Transfer(FIM): 6 Pt return demo room exercise program and home exercise program Additional Goals: 1-Demonstrate ADL Tasks, 2-Verbalize Understanding, 3- ImproveStrength/Geo 1=Demonstrate adherence to instructed precautions during ADL tasks. 2=Patient will verbalize/demonstrate understanding of assistive devices/ modifications for ADL. 3=Patient will improve strength/tolerance for activity to enable patient to perform ADL's. OT Education/Plan Problem List/Assessment Assessment: Decreased Activ Tolerance, Decreased UE Strength, Dependent Transfers, Impaired Coordination, Impaired Self-Care Skills Pt would benefit from skilled OT to increase her independence in basic self care and prepare her for IADLs and return to work Discharge Recommendations Plan/Recommendations: Continue POC Therapy D/C Recommendations: Occupational Therapy Outpatient Patient/Family Goals discharge tomorrow Treatment Plan/Plan of Care Treatment,Training & Education: Yes Patient would benefit from OT for education, treatment and training to promote independence in ADL's, mobility, safety and/or upper extremity function for ADL' s. Plan of Care: ADL Retraining, Functional Mobility, Group Exercise/Act as Ind ( education, exercise, activity tolerance, socialization), UE Funct Exercise/Act, UE Neuromus Re-Ed/Coord Treatment Duration: Feb 19, 2018 Frequency: At least 5 of 7 days/Wk (IRF) Estimated Hrs Per Day: 1.5 hours per day Agreement: Yes Rehab Potential: Good Time/GCodes Start Time: 10:50 Stop Time: 11:50 Total Time Billed (hr/min): 60 Billed Treatment Time visit, 15 minutes evaluation moderate intensity, 45 minutes ADL EROS HOLT OT Feb 16, 2018 12:43
--- NOTE | 2018-02-16 13:04 | ST Cognitive Linguistic Eval ---
Speech Evaluation-General Medical Diagnosis Transverse Myelitis Onset Date: Feb 10, 2018 Therapy Diagnosis Therapy Diagnosis: Cognition Precautions Precautions/Isolations: Standard Precautions Referral Referring Physician: Dr. Mccoy Reason for Referral: Evaluation/Treatment Medical History Pertinent Medical History: DM, HTN Current History Neuro like symptoms Reviewed History: Yes Social History Home: Single Level Current Living Status: Alone Speech PLF-Current Status Prior Level of Function Pt was independent Subjective Pt pleasant and cooperative. Pain Numeric Pain Scale: 0-No Pain Language Eval: Auditory Comprehends Simple Yes/No Ques: Functional Follows 1-Step Commands: Functional Follows Complex Directions: Functional Follows General Conversations: Functional Language Eval: Verbal Language Completes Spontaneous Greeting: Functional Requests Basic Needs: Functional States Basic Personal Info: Functional Expresses Complex Ideas: Functional Language Evaluation: Reading NT Objective Cognitive Domain Attention: WNL Memory: WNL Problem Solving: Functional Objective Results [facility] was administered to assess cognitive-linguistic functioning. Results are as follows: Memory - 3 word recall: Immediate-3/3, Delayed-3/3 and Remotely delayed-3/3. Details inn Paragraph immediate 4/4 and Delayed 4/4. Organization/[place]/7 Problem Solving: Simple-4/4; Math 4/4; Abstract/complex 3/3; Comparisons 5/5 Impression Pt's scores represent cognitive-linguistic functioning WFL.. Communication/Social Cognition Comprehension: 7 Expression: 7 Social Interaction: 7 Problem Solvin Memory: 7 Speech Patient Assess Expression of Ideas/Wants: Expression (4) Understanding Verbal Content: Understands (4) Brief Interview-Mental Status: Yes Repetition of Three Words: Three (3) Temporal Orientation: Year: Correct (3) Temporal Orientation: Month: Accurate within 5 days(2) Temporal Orientation: Day: Correct (1) Recall : Wear to say "Sock": Yes, no cue required (2) Recall : Color: Yes, no cue required (2) Recall : Bed: Yes, no cue required (2) Speech Short Term Goals Short Term Goals Short Term Goals No STGs established as skilled ST not indicated at this time. Speech Promotions Representative Goals Nursing Home Goals No LTGs established as skilled ST is not indicated at this time. Speech-Plan Patient/Family Goals Patient/Family Goals: to return home Treatment Plan Speech Therapy Treatment Plan: Discontinue ST No skilled ST indicated. Frequency: Modified Program (IRF) (no skillled st) Estimated Hrs Per Day: Other (no skilled ST) Rehab Potential: Good Pt/Family Agrees to Plan: Yes Safety Risks/Education Teaching Recipient: Patient Teaching Methods: Discussion Response to Teaching: Verbalize Understanding Time Speech Therapy Time In: 09:55 Speech Therapy Time Out: 10:30 Total Billed Time: 35 Billed Treatment Time 1, SPSNDCOMP ANAND Abbott Feb 16, 2018 13:04
--- NOTE | 2018-02-16 13:38 | Physical Therapy Daily Note ---
PT Daily Note-Current Subjective [place] Pain Numeric Pain Scale: 0-No Pain Location: No Pain Reported Mental Status Patient Orientation: Normal For Age Transfers Functional [place] Measure 0=Not Assessed/NA 4=Minimal Assistance 1=Total Assistance 5=Supervision or Setup 2=Maximal Assistance 6=Modified [place] 3=Moderate Assistance 7=Complete IndependenceIRFPAI Quality Coding Scale 6 Independent with activity with or without an assistive device 5 Patient requires set up or clean up by helper. Patient completes activity by themselves 4 Supervision or touching assist (CGA). [place] provide cues , steadying assist 3 The helper provides less than half the effort to complete the activity 2 The helper provides more than half the effort to complete the activity 1 Dependent. The helper does all the effort to complete an activity 7 Patient refused to complete or attempt activity 9 The patient did not perform the activity before the current illness or injury 88 Not attempted due to Medical conditions or safety concerns Transfers (B, C, W/C) (FIM): 7 Scootin Sit to/from Stand: 7 Sit to Stand (QC): 6 Weight Bearing Right Lower Extremity: Right Weight Bearing/Tolerated Left Lower Extremity: Left Weight Bearing/Tolerated Gait Training Does the Patient Walk?: Yes Gait (FIM): 7 Distance (FIM): 3=150 ft Distance: >800' x 4 Walk 10 feet (QC): 6 Walk 50 ft with 2 Turns(QC): 6 Walk 150 ft (QC): 6 Walking 10ft/uneven surface-QC: 6 Gait Level of Assist: 7 Gait Assistive Device: None on all terrains (rocks, grass, hills, concrete, etc) with minor deviations due to left LE fatigue, however, self correction without difficulty Stair Training Stair Training: Handrails/: 2 handrails Stairs (FIM): 6 #of Steps: 24 1 Step (curb) (QC): 6 4 Steps (QC): 6 12 Steps (QC): 6 Stairs: Pattern: Reciprocal Level of Assist: 6 Assessment Patient tolerated treatment well and wishes to return to home this week. From a PT standpoint, patient would benefit from continued outpatient PT to address dynamic balance and functional strength. SW notified. PT Radiator Specialist Goals Radiator Specialist Goals PT Assisted Goals Time Frame: Feb 20, 2018 Transfers (B,C,W/C) (FIM): 7 Sit to Lying (QC): 6 Lying-Sitting on Side/Bed(QC): 6 Sit to Stand (QC): 6 Rollin Roll Left to Right (QC): 6 Chair/Lvl-ho-Xmwvr Xfer(QC): 6 Car Transfer (QC): 6 Does the Patient Walk: Yes Gait (FIM): 7 Gait distance (FIM): 3=150 ft Distance: >1500' Walk 10 feet (QC): 6 Walk 10ft-Uneven Surface(QC): 6 Walk 50ft with 2 Turns (QC): 6 Walk 150 ft (QC): 6 Gait Level of Assist: 7 Gait Assistive Device: None Stairs (FIM): 6 # of Steps: 48 1 Step (curb) (QC): 6 4 Steps (QC): 6 12 Steps (QC): 6 Stairs Level Of Assist: 6 Picking up an Object (QC): 6 PT Plan Treatment/Plan Treatment Plan: Continue Plan of Care Treatment Plan: Education, Functional Activity Geo, Functional Strength, Group Therapy, Gait, Safety, Therapeutic Exercise, Transfers Treatment Duration: Feb 20, 2018 Frequency: At least 5 of 7 days/Wk (IRF) Estimated Hrs Per Day: 1.5 hours per day Patient and/or Family Agrees t: Yes Discharge Recommendations Therapy D/C Recommendations: Physical Therapy Outpatient Time/GCodes Time In: 1301 Time Out: 1333 Total Billed Treatment Time: 32 Total Billed Treatment 1 visit FA x 2 32 min SANAM VILELGAS PT Feb 16, 2018 13:37
--- NOTE | 2018-02-16 14:06 | CONSULTATION REPORT ---
DATE OF SERVICE: 02/16/2018 ATTENDING PHYSICIAN: Dr. Mccoy. SUMMARY: A 62-year-old white lady recovering from transverse myelitis who many years ago I did the sling procedure on her with success. She has been having some symptoms of urination secondary to the myelitis; however, it is improving, mostly in the form of frequency and urgency and decreased sensation of voiding. She says she is getting better. Problem does not bother her. IMPRESSION: Neurogenic bladder secondary to transverse myelitis. PLAN: We will check a postvoid residual bladder scan just to make sure she empties well and if she does, we will just watch it for now. If it becomes bothersome then we will start her on anticholinergic. Job ID: [id number] DocumentID: [id number] Dictated Date: 02/16/2018 10:15:33 Holistic Nutritionist Date: 02/16/2018 14:05:54 Dictated By: MAGGIE BECKFORD MD MTDD
--- NOTE | 2018-02-16 15:53 | Occupational Ther Daily Note ---
OT Current Status-Daily Note Subjective Pt seen in room, up in recliner, agreeable to OT. No pain mentioned. Appearance Alert, cooperative Mental Status/Objective Functional [place] Measure 0=Not Assessed/NA 4=Minimal Assistance 1=Total Assistance 5=Supervision or Setup 2=Maximal Assistance 6=Modified [place] 3=Moderate Assistance 7=Complete [place] ADL-Treatment Functional [place] Measure 0=Not Assessed/NA 4=Minimal Assistance 1=Total Assistance 5=Supervision or Setup 2=Maximal Assistance 6=Modified [place] 3=Moderate Assistance 7=Complete IndependenceIRFPAI Quality Coding Scale 6 Independent with activity with or without an assistive device 5 Patient requires set up or clean up by helper. Patient completes activity by themselves 4 Supervision or touching assist (CGA). [place] provide cues , steadying assist 3 The helper provides less than half the effort to complete the activity 2 The helper provides more than half the effort to complete the activity 1 Dependent. The helper does all the effort to complete an activity 7 Patient refused to complete or attempt activity 9 The patient did not perform the activity before the current illness or injury 88 Not attempted due to Medical conditions or safety concerns Other Treatment Pt walked with no LOB observed to gym. Standardized coordination and UE strength testing completed and shared with pt. Pt also shown multiple exercises with red theraputty for strengthening L hand, with return demonstration. pt walked abck to room and left in room, all needs met. 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: 78, 76, 77 lb Average 77 lb L: 44, 44, 39 lb Average 42.3 lb Pinch: R L Lateral 16# 11# 3 jaw andres 16# 8# Tip 8# 4# Box and Blocks Gross Motor: R: 60 blocks L: 54 blocks 9 Hole Peg test Fine Motor: R: 19.16 seconds L: 23.59 seconds Grooved Pegboard Fine Motor: (Pt believes numbness in fingertips affected performance) R: 1:13 L: 2:02 Assessments show decreased strength in L UE and decreased coordination L hand Education OT Patient Education: Home exercise program, Purpose of tx/functional activities Teaching Recipient: Patient Teaching Methods: Demonstration, Discussion Response to Teaching: Verbalize Understanding, Return Demonstration OT Short Term Goals Short Term Goals 1=Demonstrate adherence to instructed precautions during ADL tasks. 2=Patient will verbalize/demonstrate understanding of assistive devices/ modifications for ADL. 3=Patient will improve strength/tolerance for activity to enable patient to perform ADL's. OT Drug Department Worker Goals Longterm Goals Time Frame: Feb 19, 2018 Eating (FIM): 7 Eating (QC): 6 Groomin Oral Hygiene (QC): 6 Bathing(FIM): 6 Shower/Bathe Self (QC): 6 Upper Body Dressing(FIM): 6 Upper Body Dressing (QC): 6 Lower Body Dressing(FIM): 6 Lower Body Dressing (QC): 6 On/Off Footwear (QC): 6 Toileting(FIM): 6 Toileting Hygiene (QC): 6 Toilet/Commode Transfer(FIM): 6 Toilet/Commode Transfer (QC): 6 Shower Transfer(FIM): 6 Pt return demo room exercise program and home exercise program Additional Goals: 1-Demonstrate ADL Tasks, 2-Verbalize Understanding, 3- ImproveStrength/Geo 1=Demonstrate adherence to instructed precautions during ADL tasks. 2=Patient will verbalize/demonstrate understanding of assistive devices/ modifications for ADL. 3=Patient will improve strength/tolerance for activity to enable patient to perform ADL's. OT Education/Plan Problem List/Assessment Pt would benefit from skilled OT to increase her independence in basic self care and prepare her for IADLs and return to work Discharge Recommendations Plan/Recommendations: Continue POC Treatment Plan/Plan of Care Patient would benefit from OT for education, treatment and training to promote independence in ADL's, mobility, safety and/or upper extremity function for ADL' s. Plan of Care: ADL Retraining, Functional Mobility, Group Exercise/Act as Ind ( education, exercise, activity tolerance, socialization), UE Funct Exercise/Act, UE Neuromus Re-Ed/Coord Treatment Duration: Feb 19, 2018 Frequency: At least 5 of 7 days/Wk (IRF) Estimated Hrs Per Day: 1.5 hours per day Agreement: Yes Rehab Potential: Good Time/GCodes Start Time: 13:45 Stop Time: 14:23 Total Time Billed (hr/min): 38 Billed Treatment Time visit, 38 minutes neuromotor EROS HOLT OT Feb 16, 2018 15:53
[2018-02-16 18:00] VITALS: BP 156/90
[2018-02-16] MEDS: ATORVASTATIN 20 MG (LIPITOR) TABLET PO SCH (20:38)
--- NOTE | 2018-02-16 20:49 | PM&R Post Admission Assessment ---
Post Admission Physician Asses Date seen by provider: Feb 16, 2018 Time seen by provider: 12:00 The preadmission screen agrees with the post admission assessment that the patient is a good candidate for inpatient rehabilitation. The patient will have a comprehensive program of inpatient rehabilitation with a goal of maximizing level of functional independence prior to discharge home with [facility]. The patient will have PT/OT ninety minutes per day, each discipline , five days a week fffffffor 10 days for gait, strengthening, conditioning, balance, ADLs, any patient/family/caregiver training as necessary. Speech therapy to do cognitive assessment and treat as indicated. Rehabilitation nursing to assist with bowel, bladder, skin, , medication administration, pain management. Research Staff Member to assist with discharge planning, community reentry. SCD's for DVT prophylaxis. She appears to be well motivated to participate in three hours of therapy a day. She should be able to tolerate three hours of therapy a day from a medical standpoint. She should benefit from the three hours of therapy a day. She has a reasonable discharge plan, reasonable discharge rehabilitation goals and a supportive family. She has various comorbidities that need to be closely monitored with medications and treatments adjusted on a daily basis as needed. These include: HTN DM Anxiety Barriers to discharge for this patient who had been independent prior to this are for her to be modified independent to supervision for ADLs and mobility skills prior to discharge home with [facility], so as to lessen the burden of the caregivers. Risks for this patient include: 1. Fall 2. Fracture 3. DVT 4. Pulmonary embolism 5. Poorly controlled DM 6. Skin breakdown 7. Contractures 8. Poorly controlled pain 9. Urinary retention 10. UTI 11. Respiratory infection 12. Aspiration 13, Poorly controlled HTN Estimated Length of Stay: 7-10 days Prognosis: Rehab prognosis appears good for goal of discharge home with [facility] modified independent to supervision for ADLs and mobility skills. General: Alert, Oriented X3, Cooperative, No Acute Distress HEENT: Atraumatic, PERRLA, EOMI, Mucous Memb Moist/[place] Neck: Supple, No JVD Lungs: Clear to Auscultation Heart: Regular Rate Abdomen: Normal Bowel Sounds, Soft, No Tenderness Extremities: No Edema Neuro: Other (Strength RT 5/5 Left LE hip flex 3+/5 Knee flex and ext and dorsiflexion 4+/5) CLARA SIMPSON MD Feb 16, 2018 20:48
[2018-02-16] MEDS: inSUlin DETERMIR 1 UNIT/0.01 ML (LEVEMIR) CHARGE PER UNIT SQ SCH (20:50)
[2018-02-17] MEDS: inSUlin ASPART (NovoLOG) 1 UNIT/0.01 ML (CHARGE PER UNIT) SC SCH ×3 (05:57→15:27)
[2018-02-17 06:00] VITALS: BP 146/80
[2018-02-17] MEDS: buPROPion SR 150 MG (WELLBUTRIN SR) TAB PO SCH (06:03)
[2018-02-17] MEDS: CALCIUM CARB + VIT D 600 MG (CALCARB + D) TAB PO SCH (06:04)
[2018-02-17] MEDS: LINAGLIPTIN (TRADJENTA) 5 MG TABLET PO SCH (06:04)
[2018-02-17] MEDS: PANTOPRAZOLE 20 MG TABLET (PROTONIX) PO SCH (06:04)
[2018-02-17] MEDS: metFORMIN 500 MG (GLUCOPHAGE) TAB PO SCH (06:04)
[2018-02-17] MEDS: predniSONE 10 MG TAB PO SCH (06:05)
--- NOTE | 2018-02-17 07:56 | Consultation ---
History of Present Illness History of Present Illness Patient Consulted On(destini/time) 02/17/18 07:53 Date Seen by Provider: Feb 17, 2018 Time Seen by Provider: 07:40 Reason for Visit: Inpatient rehabilitation History of Present Illness 62-year-old female well-known to me presents back to [facility] inpatient rehabilitation after last week suffering from left-sided flaccidity both upper and lower extremity. She was ultimately transferred to [facility] where she was diagnosed with transverse myelitis. She is currently taking prednisone and she is also seen marked improvement of return of function. 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 Allergies and Home Medications Allergies Coded Allergies: No Known Drug Allergies (Unverified , 07/02/17) Home Medications Amlodipine Besylate 10 Mg Tablet, 10 MG PO HS, (Reported) Aripiprazole 5 Mg Tablet, 5 MG PO HS, (Reported) Bupropion HCl 150 Mg Tablet.er, 150 MG PO BID, (Reported) Enalapril Maleate 20 Mg Tablet, 20 MG PO BID, (Reported) Estradiol 2 Mg Tablet, 2 MG PO DAILY, (Reported) Glyburide 5 Mg Tablet, 5 MG PO BID, (Reported) Metformin HCl 1,000 Mg Tablet, 1,000 MG PO BID WITH MEALS, (Reported) Nadolol 40 Mg Tablet, 40 MG PO DAILY, (Reported) Omeprazole 20 Mg Capsule.dr, 20 MG PO DAILY, (Reported) Sitagliptin Phosphate 100 Mg Tablet, 100 MG PO DAILY, (Reported) Temazepam 15 Mg Capsule, 15 MG PO HS, (Reported) Patient Home Medication List Home Medication List Reviewed: Yes Past Xwewcla-[id number]-[id number] Hx Patient Social History Alcohol Use: Denies Use Recreational Drug Use: No Smoking Status: Former Smoker Type Used: Cigarettes Former Smoker, Quit: Jul 02, 1990 Recent Foreign Travel: No Contact w/Someone Who Travel: No Recent Infectious Disease Expo: No Recent Hopitalizations: No Immunizations Up To Date Tetanus Booster (TDap): Unknown PED Vaccines UTD: No Date of Pneumonia Vaccine: Apr 28, 2016 Date of Influenza Vaccine: Mar 30, 2017 Seasonal Allergies Seasonal Allergies: No Past Medical History Surgeries: Yes Bladder Surgery, Hysterectomy, Joint Replacement, Oophorectomy, Orthopedic, Rectal Respiratory: Yes (PULMONARY EDEMA ) Currently Using CPAP: No Currently Using BIPAP: No Cardiac: Yes High Cholesterol, Hypertension Neurological: No 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 Disorders: Yes (RECTOCELE, CYSTOCELE) Female 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 Disorders: Denies 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: Hysterectomy, Menopausal Sexually Transmitted Disease: No HIV/AIDS: No Genitourinary: No Gastrointestinal: Yes Gastroesophageal Reflux Musculoskeletal: Yes (RIGHT HIP REPLACEMENT) Endocrine: Yes Diabetes, Non-Insulin dep HEENT: No Loss of Vision: Denies Hearing Impairment: Denies Cancer: No Psychosocial: Yes Anxiety, Depression Integumentary: No Blood Disorders: No Adverse Reaction/Blood Tranf: No (N/A) Family Medical History Alcoholism Cardiovascular disease Psychosocial problem Review of Systems-General Constitutional: see HPI Physical Exam-General Problems Physical Exam Vital Signs Vital Signs - First Documented 02/15/18 17:34 Temp 97.9 Pulse 63 Resp 22 B/P (MAP) 140/82 (101) Pulse Ox 95 O2 Delivery Room Air Capillary Refill : General Appearance: no apparent distress Eyes: Bilateral Eye Normal Inspection Neck: non-tender Respiratory: lungs clear Cardiovascular: regular rate, rhythm Gastrointestinal: soft Rectal: deferred Extremities: other (Patient demonstrated ambulation with proper lower extremity mechanics. She has fairly normal left upper extremity juice packaging machines setter strength.) Assessment/Plan Assessment/Plan Admission Diagnosis/Plan 1. Transverse myelitis with left upper and left lower extremity affected -She is under care of rehabilitation at [facility] -She continues to receive prednisone and currently at 90 mg daily and this will be tapered over the next 9 days decreasing by 10 mg. 2. Diabetes mellitusin need of control -Agree with 30 units of Lantus at bedtime and sliding scale with correction -Ultimately her glucose will be fine-tuned outpatient. 3. Hypertensioncontrolled Admission Status: Inpatient Order (span 2 midnights) Reason for Inpatient Admission: Patient is admitted for further inpatient rehabilitation of her left upper and lower extremity weakness due to the transverse myelitis. Clinical Quality Measures DVT/VTE Risk/Contraindication: Risk Factor Score Per Nursin RFS Level Per Nursing on Admit: 4+=Very High ANTONINA HERNÁNDEZ MD Feb 17, 2018 07:56
--- NOTE | 2018-02-17 08:19 | Progress Note (SOAP) ---
Subjective Time Seen by Provider: 08:15 Subjective/Events-last exam Patient doing good. Went over diabetes with patient. Patient walking good. Patient be discharged today Objective Exam Vital Signs Date Time Temp Pulse Resp B/P (MAP) Pulse Ox O2 Delivery O2 Flow Rate FiO2 02/17/18 06:00 97.6 82 18 146/80 (102) 96 Room Air 02/16/18 18:00 98.3 63 16 156/90 (112) 97 Room Air I & O 02/17/18 07:00 Intake Total 1620 ml Balance 1620 ml Capillary Refill : General Appearance: No Apparent Distress, WD/WN HEENT: Normal ENT Inspection Neck: Full Range of Motion, Normal Inspection Results Lab Laboratory Tests 02/16/18 11:05: Glucometer 244H 02/16/18 20:41: Glucometer 296H 02/17/18 05:39: Glucometer 110 Assessment/Plan Assessment/Plan Assess & Plan/Chief Complaint Transverse myelitis. Diabetes mellitus. Hypertension. Patient doing much better. Patient be discharged today. Patient to be sent home on insulin Clinical Quality Measures Admission Status Admission Dx Transfer myelitis. Diabetes. Problems urinating DVT/VTE Risk/Contraindication: Risk Factor Score Per Nursin RFS Level Per Nursing on Admit: 4+=Very High JUAREZ ENRIQUEZ DO Feb 17, 2018 08:19
--- NOTE | 2018-02-17 08:22 | Discharge Inst-Simple/Standard ---
Discharge Inst-Standard Patient Instructions/Follow Up Plan of Care/Instructions/FU: Make appointment with Dr. michaels Activity as Tolerated: Yes Discharge Diet: ADA Diet JUAREZ ENRIQUEZ DO Feb 17, 2018 08:22
--- NOTE | 2018-02-17 09:09 | Progress Note-Urology ---
Progress Note-Urology Progress Notes/Assess & Plan Progress/Assessment & Plan EMPTIES WELL. PLAN OBSERVE, SEE HER AT OFFICE IN 1 WEEK, IF STILL SX, START ANTICHOLINERGICS Final Diagnosis WET OAB MAGGIE BECKFORD MD Feb 17, 2018 9:09 am
[2018-02-17] MEDS ORDERED: PRD10T PO (09:10)
[2018-02-17] MEDS ORDERED: ASPI-999 PO (09:10)
[2018-02-17] MEDS ORDERED: INSU100I29 SQ (09:10)
[2018-02-17] MEDS ORDERED: ENAL10TA PO (09:10)
[2018-02-17] MEDS ORDERED: ATOR20TA66 PO (09:10)
[2018-02-17] MEDS ORDERED: CLD600T PO (09:10)
[2018-02-17] MEDS ORDERED: INSU100V16 SC (09:10)
[2018-02-17] MEDS: ENALAPRIL 10 MG (VASOTEC) TAB PO SCH (09:49)
[2018-02-17] MEDS: ASPIRIN 81 MG CHEW (CHILDREN'S ASA) PO SCH (09:49)
[2018-02-17] MEDS: ESTROGENS CONJ 0.625 MG (PREMARIN) TAB PO SCH (09:49)
--- NOTE | 2018-02-17 09:57 | Physical Therapy Daily Note ---
PT Daily Note-Current Subjective Pt agreeable to PT. Reports she feels ready to go home today. Reports she plans to go to outpt therapy. Mental Status Patient Orientation: Person, Place, Time, Situation Transfers Functional [place] Measure 0=Not Assessed/NA 4=Minimal Assistance 1=Total Assistance 5=Supervision or Setup 2=Maximal Assistance 6=Modified [place] 3=Moderate Assistance 7=Complete IndependenceIRFPAI Quality Coding Scale 6 Independent with activity with or without an assistive device 5 Patient requires set up or clean up by helper. Patient completes activity by themselves 4 Supervision or touching assist (CGA). [place] provide cues , steadying assist 3 The helper provides less than half the effort to complete the activity 2 The helper provides more than half the effort to complete the activity 1 Dependent. The helper does all the effort to complete an activity 7 Patient refused to complete or attempt activity 9 The patient did not perform the activity before the current illness or injury 88 Not attempted due to Medical conditions or safety concerns Transfers (B, C, W/C) (FIM): 7 Scootin Roll Left to Right (QC): 6 Supine to/from Sit: 7 Sit to/from Stand: 7 Sit to Lying (QC): 6 Sit to Stand (QC): 6 Chair/Cjh-jm-Nkttx Xfer(QC): 6 Bed to/from Chair: 7 Car Transfer (QC): 7 Pt is indep with all transfers. No assist required. Weight Bearing Right Lower Extremity: Right Weight Bearing/Tolerated Left Lower Extremity: Left Weight Bearing/Tolerated Gait Training Does the Patient Walk?: Yes Gait (FIM): 7 Distance (FIM): 3=150 ft Distance: 500 ft Walk 10 feet (QC): 6 Walk 50 ft with 2 Turns(QC): 6 Walk 150 ft (QC): 6 Walking 10ft/uneven surface-QC: 6 Gait Assistive Device: None Pt walked indoors; up down an indoor slope, outdoors, up/down curbs and on varied surfaces. Pt had 1 LOB episode stepping up on the curb but was able to recover without assist. Stair Training Stair Training: Handrails/: 1 handrail Stairs (FIM): 7 #of Steps: 12 1 Step (curb) (QC): 6 4 Steps (QC): 6 12 Steps (QC): 6 Stairs: Pattern: Reciprocal Balance Picking up an Object (QC): 6 Treatments Gait training on multiple surfaces she will face upon discharge. Safety education. Education on importance of continued outpt PT for continued strengthening. Assessment Current Status: Excellent Progress Pt is safe with indep mobility. She seems aware of her capacity and is cautious as needed. Pt feels safe to discharge home. PT Penitentiary Goals Penitentiary Goals PT Coremaking Machine Operator Goals Time Frame: Feb 20, 2018 Transfers (B,C,W/C) (FIM): 7 Sit to Lying (QC): 6 Lying-Sitting on Side/Bed(QC): 6 Sit to Stand (QC): 6 Rollin Roll Left to Right (QC): 6 Chair/Jtm-gn-Gguxy Xfer(QC): 6 Car Transfer (QC): 6 Does the Patient Walk: Yes Gait (FIM): 7 Gait distance (FIM): 3=150 ft Distance: >1500' Walk 10 feet (QC): 6 Walk 10ft-Uneven Surface(QC): 6 Walk 50ft with 2 Turns (QC): 6 Walk 150 ft (QC): 6 Gait Level of Assist: 7 Gait Assistive Device: None Stairs (FIM): 6 # of Steps: 48 1 Step (curb) (QC): 6 4 Steps (QC): 6 12 Steps (QC): 6 Stairs Level Of Assist: 6 Picking up an Object (QC): 6 All goals met PT Plan Problem List Problem List: Activity Tolerance, Safety Treatment/Plan Treatment Plan: Discontinue PT, goals met Treatment Plan: Education, Functional Activity Geo, Functional Strength, Group Therapy, Gait, Safety, Therapeutic Exercise, Transfers Treatment Duration: Feb 20, 2018 Frequency: At least 5 of 7 days/Wk (IRF) Estimated Hrs Per Day: 1.5 hours per day Patient and/or Family Agrees t: Yes Safety Risks/Education Patient Education: Transfer Techniques, Safety Issues Teaching Recipient: Patient Teaching Methods: Demonstration, Discussion Response to Teaching: Verbalize Understanding, Return Demonstration Discharge Recommendations Therapy D/C Recommendations: Physical Therapy Outpatient Time/GCodes Time In: 800 Time Out: 845 Total Billed Treatment Time: 45 Total Billed Treatment visit FA 45 ISAMAR RED PT Feb 17, 2018 09:57
--- NOTE | 2018-02-17 10:14 | Therapy Team Discharge Summary ---
Therapy Discharge Summary Discharge Recommendations Date of Discharge 02/17/2018 Therapy D/C Recommendations: Physical Therapy Outpatient Physical Therapy This patient was admitted to ARU from outside facility with transverse myelitis. Her functional level upon admission was fairly high and she is indep with all mobiltiy this date. 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 She is indep with all mobiltiy this date and aware of safety issues. Pt is to follow up with outpt PT at in. Discharge PT at this time. Occupational Therapy Decreased Activ Tolerance, Decreased UE Strength, Dependent Transfers, Impaired Coordination, Impaired Self-Care Skills PT Gaming Cage Worker Goals Gaming Cage Worker Goals PT Gaming Cage Worker Goals Time Frame: Feb 20, 2018 Transfers (B,C,W/C) (FIM): 7 Roll Left to Right (QC): 6 Sit to Lying (QC): 6 Lying-Sitting on Side/Bed(QC): 6 Sit to Stand (QC): 6 Chair/Csh-ak-Whzcq Xfer(QC): 6 Car Transfer (QC): 6 Does the Patient Walk: Yes Gait (FIM): 7 Gait distance (FIM): 3=150 ft Distance: >1500' Walk 10 feet (QC): 6 Walk 10ft-Uneven Surface(QC): 6 Walk 50ft with 2 Turns (QC): 6 Walk 150 ft (QC): 6 Gait Level of Assist: 7 Gait Assistive Device: None Stairs (FIM): 6 # of Steps: 48 1 Step (curb) (QC): 6 4 Steps (QC): 6 12 Steps (QC): 6 Stairs Level Of Assist: 6 Picking up an Object (QC): 6 OT Gaming Cage Worker Goals Prison Goals Time Frame: Feb 19, 2018 Eating (FIM): 7 Eating (QC): 6 Oral Hygiene (QC): 6 Grooming(FIM): 7 Bathing(FIM): 6 Shower/Bathe Self (QC): 6 Upper Body Dressing(FIM): 6 Upper Body Dressing (QC): 6 Lower Body Dressing(FIM): 6 Lower Body Dressing (QC): 6 On/Off Footwear (QC): 6 Toileting(FIM): 6 Toileting Hygiene (QC): 6 Toilet/Commode Transfer(FIM): 6 Toilet/Commode Transfer (QC): 6 Shower Transfer(FIM): 6 Pt return demo room exercise program and home exercise program Additional Goals: 1-Demonstrate ADL Tasks, 2-Verbalize Understanding, 3- ImproveStrength/Geo 1=Demonstrate adherence to instructed precautions during ADL tasks. 2=Patient will verbalize/demonstrate understanding of assistive devices/ modifications for ADL. 3=Patient will improve strength/tolerance for activity to enable patient to perform ADL's. Speech Prison Goals Gaming Cage Worker Goals No LTGs established as skilled ST is not indicated at this time. ISAMAR RED PT Feb 17, 2018 10:14
--- NOTE | 2018-02-17 10:23 | Occupational Ther Daily Note ---
OT Current Status-Daily Note Subjective Pt seen in room, up in recliner, agreeable to OT. No pain mentioned. pt said that she felt ready to be discharged today. Appearance Alert, cooperative Mental Status/Objective Functional [place] Measure 0=Not Assessed/NA 4=Minimal Assistance 1=Total Assistance 5=Supervision or Setup 2=Maximal Assistance 6=Modified [place] 3=Moderate Assistance 7=Complete [place] ADL-Treatment Functional [place] Measure 0=Not Assessed/NA 4=Minimal Assistance 1=Total Assistance 5=Supervision or Setup 2=Maximal Assistance 6=Modified [place] 3=Moderate Assistance 7=Complete IndependenceIRFPAI Quality Coding Scale 6 Independent with activity with or without an assistive device 5 Patient requires set up or clean up by helper. Patient completes activity by themselves 4 Supervision or touching assist (CGA). [place] provide cues , steadying assist 3 The helper provides less than half the effort to complete the activity 2 The helper provides more than half the effort to complete the activity 1 Dependent. The helper does all the effort to complete an activity 7 Patient refused to complete or attempt activity 9 The patient did not perform the activity before the current illness or injury 88 Not attempted due to Medical conditions or safety concerns Other Treatment Pt was provided with written home program for coordination and strengthening L UE. Pt education on the different activities, with return demonstration and verbal understanding. She was able to stack 21 medicine cups in a pyramid with L UE, with increased coordination. L shoulder scapular mvmt shows increased strength and equal to R UE. Pt pleased with progress and is aware of her abilities and limitations and is intentionally careful. Education OT Patient Education: Home exercise program, Purpose of tx/functional activities Teaching Recipient: Patient Teaching Methods: Demonstration, Discussion Response to Teaching: Verbalize Understanding, Return Demonstration OT Short Term Goals Short Term Goals 1=Demonstrate adherence to instructed precautions during ADL tasks. 2=Patient will verbalize/demonstrate understanding of assistive devices/ modifications for ADL. 3=Patient will improve strength/tolerance for activity to enable patient to perform ADL's. OT Halfway Goals Rescue Instructor Goals Time Frame: Feb 19, 2018 Eating (FIM): 7 (met) Eating (QC): 6 (met) Groomin (met) Oral Hygiene (QC): 6 (met) Bathing(FIM): 6 (met) Shower/Bathe Self (QC): 6 (met) Upper Body Dressing(FIM): 6 (met) Upper Body Dressing (QC): 6 (met) Lower Body Dressing(FIM): 6 (met) Lower Body Dressing (QC): 6 (met) On/Off Footwear (QC): 6 (met) Toileting(FIM): 6 (met) Toileting Hygiene (QC): 6 (met) Toilet/Commode Transfer(FIM): 6 (met) Toilet/Commode Transfer (QC): 6 (met) Shower Transfer(FIM): 6 (met) Pt return demo room exercise program and home exercise program Additional Goals: 1-Demonstrate ADL Tasks, 2-Verbalize Understanding, 3- ImproveStrength/Geo 1=Demonstrate adherence to instructed precautions during ADL tasks. 2=Patient will verbalize/demonstrate understanding of assistive devices/ modifications for ADL. 3=Patient will improve strength/tolerance for activity to enable patient to perform ADL's. OT Education/Plan Problem List/Assessment Pt would benefit from skilled OT to increase her independence in basic self care and prepare her for IADLs and return to work Discharge Recommendations Plan/Recommendations: Discharge/Goals Met Treatment Plan/Plan of Care Patient would benefit from OT for education, treatment and training to promote independence in ADL's, mobility, safety and/or upper extremity function for ADL' s. Plan of Care: ADL Retraining, Functional Mobility, Group Exercise/Act as Ind ( education, exercise, activity tolerance, socialization), UE Funct Exercise/Act, UE Neuromus Re-Ed/Coord Treatment Duration: Feb 19, 2018 Frequency: At least 5 of 7 days/Wk (IRF) Estimated Hrs Per Day: 1.5 hours per day Agreement: Yes Rehab Potential: Good Time/GCodes Start Time: 09:42 Stop Time: 10:10 Total Time Billed (hr/min): 28 Billed Treatment Time visit, 28 minutes neuromotor EROS HOLT OT Feb 17, 2018 10:23
--- NOTE | 2018-02-17 10:30 | Therapy Team Discharge Summary ---
Therapy Discharge Summary Discharge Recommendations Date of Discharge Therapy D/C Recommendations: Occupational Therapy Outpatient, Physical Therapy Outpatient Occupational Therapy Pt was seen for skilled OT to increase her independence in basic self care to allow her to safely return home with family and friend support. She was diagnosed with transverse myelitis and initially had no movement in her L UE, per her report. When she was admitted to ARU, she was modified independent with basic ADLs, but used adapted equipment and modified techniques. She demonstrated decreased strength and coordination in L UE, per standardized testing. She was given a home exercise program and was able to verbalize understanding and demonstrate independence. Outpatient OT is recommended as she will have difficulties with IADLs and would also like to be able to do ADLS without modifications. See tx plan for goals met. DC OT. Decreased Activ Tolerance, Decreased UE Strength, Dependent Transfers, Impaired Coordination, Impaired Self-Care Skills PT Snf Goals Children'S Attendant Goals PT Snf Goals Time Frame: Feb 20, 2018 Transfers (B,C,W/C) (FIM): 7 Roll Left to Right (QC): 6 Sit to Lying (QC): 6 Lying-Sitting on Side/Bed(QC): 6 Sit to Stand (QC): 6 Chair/Xoe-nr-Ptxrh Xfer(QC): 6 Car Transfer (QC): 6 Does the Patient Walk: Yes Gait (FIM): 7 Gait distance (FIM): 3=150 ft Distance: >1500' Walk 10 feet (QC): 6 Walk 10ft-Uneven Surface(QC): 6 Walk 50ft with 2 Turns (QC): 6 Walk 150 ft (QC): 6 Gait Level of Assist: 7 Gait Assistive Device: None Stairs (FIM): 6 # of Steps: 48 1 Step (curb) (QC): 6 4 Steps (QC): 6 12 Steps (QC): 6 Stairs Level Of Assist: 6 Picking up an Object (QC): 6 OT Snf Goals Children'S Attendant Goals Time Frame: Feb 19, 2018 Eating (FIM): 7 (met) Eating (QC): 6 (met) Oral Hygiene (QC): 6 (met) Grooming(FIM): 7 (met) Bathing(FIM): 6 (met) Shower/Bathe Self (QC): 6 (met) Upper Body Dressing(FIM): 6 (met) Upper Body Dressing (QC): 6 (met) Lower Body Dressing(FIM): 6 (met) Lower Body Dressing (QC): 6 (met) On/Off Footwear (QC): 6 (met) Toileting(FIM): 6 (met) Toileting Hygiene (QC): 6 (met) Toilet/Commode Transfer(FIM): 6 (met) Toilet/Commode Transfer (QC): 6 (met) Shower Transfer(FIM): 6 (met) Pt return demo room exercise program and home exercise program Additional Goals: 1-Demonstrate ADL Tasks, 2-Verbalize Understanding, 3- ImproveStrength/Geo 1=Demonstrate adherence to instructed precautions during ADL tasks. 2=Patient will verbalize/demonstrate understanding of assistive devices/ modifications for ADL. 3=Patient will improve strength/tolerance for activity to enable patient to perform ADL's. Speech Children'S Attendant Goals Children'S Attendant Goals No LTGs established as skilled ST is not indicated at this time. EROS HOLT OT Feb 17, 2018 10:30
[2018-02-17 15:50] VITALS: BP 146/80
--- NOTE | 2018-03-03 06:05 | DISCHARGE SUMMARY ---
DATE OF SERVICE:03-02-18 HISTORY OF PRESENT ILLNESS: The patient is a 62-year-old female who lives alone and has been independent, who developed transverse myelitis. She was initially evaluated at [facility], then transferred to [facility] for further treatment. The patient was put on high doses of steroids. She had improvement, but had a decline in her functional independence and was referred to inpatient rehabilitation unit. Her PCP is Dr. Haddad. PAST MEDICAL HISTORY: Diabetes mellitus, hypertension, hypercholesterolemia, GERD, anxiety, depression, tobaccoism. MEDICAL COURSE: The patient was followed by Dr. Haddad and Gaby in my absence. The patient quickly improved in strength and endurance. She was seen by Dr. Schwab regarding urinary frequency, this improved as well. She was afebrile during her brief stay. Her Accu-Cheks were monitored, insulin continued. She continued on prednisone taper. She is continent of bowel and bladder. Glucometer readings varied between 110 and 395 during her stay. Her insulin was adjusted. Her pulse on 02/17/2018 was 82, respirations 18, blood pressure 146/80, O2 sat 96% on room air. REHABILITATION COURSE: She progressed well with therapies, with increased strength and endurance. She was voiding well, having BMs. She was assessed by speech therapy upon admission and found to be intact, they signed off. 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 She was modified independent for transfers and gait with limited endurance upon admission, but this quickly improved and upon discharge she is independent with all mobility with good strength, endurance and balance. She is independent for gait without gait aid. OT NOTES: Upon admission, she demonstrated increased strength and coordination of left upper limb and upon initial diagnosis of transverse myelitis, initially had no movement in the left upper limb. She was admitted to ARU. She was modified independent with basic ADLs, but used adaptive equipment and modified techniques. She had increased strength and endurance and upon discharge, she is independent for eating, grooming, modified independent for oral hygiene, modified independent for bathing, modified independent for dressing, toileting, toilet transfers. She is continent of bowel and bladder. DISCHARGE INSTRUCTIONS: She will follow up with Dr. Schwab and Catie, PCP as per their schedule. Continue current diet. She was provided with home exercise program. DISCHARGE MEDICATIONS: ASA 81 mg p.o. daily, Lipitor 20 mg p.o. each day at bedtime, calcium carbonate with vitamin D3 12,000 mg p.o. b.i.d., Enalapril 30 mg p.o. daily, NovoLog insulin subQ a.c. and at bedtime, Levemir FlexTouch 30 units subQ each day at bedtime, prednisone 90 mg p.o. daily for 10 days, then taper. Amlodipine 10 mg p.o. each day at bedtime, aripiprazole 5 mg p.o. each day at bedtime, bupropion 150 mg p.o. b.i.d., Estradiol 2 mg p.o. daily, glyburide 5 mg p.o. b.i.d., metformin 1000 mg p.o. b.i.d., Nadolol 40 mg p.o. daily, omeprazole 20 mg p.o. daily, Januvia 100 mg p.o. daily, temazepam 15 mg p.o. each day at bedtime. DISCHARGE DIAGNOSES: 1. Rehabilitation transverse myelitis with weakness that improved. 2. Neurogenic bladder, improved. 3. Diabetes mellitus, controlled with medication. 4. Hypertension, controlled. 5. Hypercholesterolemia. 6. Gastroesophageal reflux disease. 7. Anxiety, on meds. 8. Depression, on meds. 9. History of smoking. 10. Long-term use metformin, glyburide. CONDITION AT DISCHARGE: Improved and stable. PROGNOSIS: Rehab prognosis appears good for continued improvement at home with home exercise program and return to independent living. I believe she will have followup with her neurologist at [facility] as well. Job ID: [id number] DocumentID: [id number] Dictated Date: 03/02/2018 19:23:05 Credit Advisor Date: 03/03/2018 06:05:12 Dictated By: CLARA SIMPSON MD MTDD
== END 2018-02-17 15:50 | disposition home or self-care (01) | DRG 99 ==
PROVIDERS: ADMIT Family Medicine; ATTEND Physical Medicine & Rehabilitation
DX: G37.3 Acute transverse myelitis in demyelinating disease of central nervous system (principal); N31.9 Neuromuscular dysfunction of bladder, unspecified; E11.9 Type 2 diabetes mellitus without complications; I10 Essential (primary) hypertension; E78.00 Pure hypercholesterolemia, unspecified; K21.9 Gastro-esophageal reflux disease without esophagitis; F41.9 Anxiety disorder, unspecified; F32.9 Major depressive disorder, single episode, unspecified; Z87.891 Personal history of nicotine dependence; Z79.84 Long term (current) use of oral hypoglycemic drugs
CPT/HCPCS: 82962

== ENCOUNTER 2018-03-19 15:25 | Outpatient (RCR) | payer BC ==
[~2018-03-19 15:25] MED LIST changes: -AMLO10TA2 PO; +AMLO10TA6 PO; +ASPI-999 PO; +ATOR20TA66 PO; +CLD600T PO; +ENAL10TA PO; +ESTR2TAB PO; +INSU100I29 SQ; +INSU100V16 SC; +METF-397 PO; +METF-399 PO; -METF10002 PO; -METF500T5 PO; +PRD10T PO
== END 2018-04-15 15:47 | disposition home or self-care (01) ==
PROVIDERS: ATTEND Family Medicine
DX: G37.3 Acute transverse myelitis in demyelinating disease of central nervous system (principal)

== ENCOUNTER → 2018-04-09 | Outpatient (CLI) | payer BC ==
[~2018-04-09] MED LIST changes: +GADOBUTROL 10 MMOL/10 ML (GADAVIST) VIAL IV ONE
--- NOTE | 2018-04-09 15:27 | Diagnostic Imaging Report ---
PROCEDURE: MR imaging cervical spine with and without contrast. TECHNIQUE: Multiplanar and multisequence MRI of the cervical spine was performed with and without contrast. INDICATION: Transverse myelitis. FINDINGS: The previous MRI cervical spine exam of 02/11/2018 noted a short segment of abnormal T2 signal within the cervical cord at the level of C3. The distribution was central with abbie-cord bilaterally, particularly on the right. These findings were felt to be related to a spinal cord infarct, although transverse myelitis or neuromyelitis optica were also listed as diagnostic considerations. On the T2 sagittal series of this exam, the area of abnormal signal within the cord at C3 is again evident and does not appear to be quite as conspicuous as on the prior study. Furthermore, there is no abnormal enhancement of this region on the postcontrast series. There is no other abnormal enhancement involving the cord on the postcontrast series. The previous exam did note broad-based disc bulges resulting in [id number] spinal canal narrowing at C4-5, C5-6, and moderate spinal canal narrowing at C6-7. Those degenerative changes are again evident and do not appear to have progressed. As on the prior exam, the C4-5 and C5-6 levels are the more severely affected. There is also narrowing of the neural foramen on the left at both of these levels, particularly at C5-6. This too is no different than on the prior exam. No new area of spinal stenosis or nerve root encroachment has developed. There is no abnormal signal arising from the vertebral bodies to indicate bone edema or a fracture. There is no sign of a paraspinal mass. IMPRESSION: 1. The area of altered signal within the cord at the C3 level seen previously is not quite as conspicuous on this study. Furthermore, there is no abnormal enhancement in this region on the postcontrast series. Whether this finding is a sequela of prior spinal cord infarct or transverse myelitis is not certain. 2. There is no new abnormality involving the cord or the vertebral bodies. 3. The degenerative disc and bony disease seen previously has not progressed. The C4-5 and C5-6 levels are the most significantly involved. Dictated by: Dictated on workstation # [id number]
== END ==
LOC: RAD 12:40
PROVIDERS: ATTEND Family Medicine
DX: M50.321 Other cervical disc degeneration at C4-C5 level (principal); M89.9 Disorder of bone, unspecified; G37.3 Acute transverse myelitis in demyelinating disease of central nervous system
CPT/HCPCS: 72156

== ENCOUNTER → 2018-06-04 | Outpatient (CLI) | payer BC ==
[~2018-06-04] MED LIST changes: -GADOBUTROL 10 MMOL/10 ML (GADAVIST) VIAL IV ONE
--- NOTE | 2018-06-04 16:38 | Diagnostic Imaging Report ---
PROCEDURE: MRI left joint lower extremity without contrast. TECHNIQUE: Multiplanar, multisequence non contrast-enhanced MRI of the left knee was accomplished. INDICATION: Fall on 05/15/2018 with medial left knee pain. History of meniscus repair several years ago. COMPARISON: None. FINDINGS: No acute fracture is seen in the left knee. Alignment appears normal. There is a moderate left knee joint effusion. There is minimal fluid in Coker's cyst. Multiple joint bodies are seen, in the lateral recess, the posterior knee joint, and the popliteal recess. There are also ossified joint bodies anterior to the lateral compartment, and plus there are tricompartmental osteophytes which are prominent. The articular cartilage in the patellofemoral compartment demonstrates marked thinning, surface irregularity, and heterogeneity, with areas of full-thickness fissuring as well as full-thickness cartilage loss at the lateral facet. The articular cartilage in the medial compartment demonstrates marked surface irregularity with thinning and multiple small full-thickness defects. The articular cartilage in the lateral compartment is nearly completely absent at the weightbearing aspect. The medial meniscus is diminutive, may be from prior meniscectomy. There is increased signal in the posterior horn of the medial meniscus, without discrete signal seen extending to the articular surface to indicate a tear. The lateral meniscus is nearly completely extruded, with complex tearing of the anterior horn extending into the body. The anterior and posterior cruciate ligaments are intact. The medial collateral ligament demonstrates moderate adjacent edema. The medial and lateral retinacula appear intact, although there is significant soft tissue edema about the medial retinaculum. The extensor mechanism appears intact, with increased signal at the proximal patellar tendon. Cystic structures, possibly ganglion cysts, are seen posteriorly. The soft tissues are otherwise unremarkable. IMPRESSION: 1. Diminutive medial meniscus in the left knee, likely from postsurgical changes. Increased signal may be due to degeneration. There is complex tearing of the lateral meniscus. 2. Moderate soft tissue edema about the medial collateral ligament and medial retinaculum may be due to low-grade sprain. A complete tear is not seen. 3. Moderate left knee joint effusion with multiple joint bodies. 4. Tricompartmental osteoarthritis and cartilage loss in the left knee, most severe in the lateral compartment. Dictated by: Dictated on workstation # [id number]
== END ==
LOC: RAD 14:50
PROVIDERS: ATTEND Orthopaedic Surgery
DX: S83.272A Complex tear of lateral meniscus, current injury, left knee, initial encounter (principal); S83.242A Other tear of medial meniscus, current injury, left knee, initial encounter; M17.12 Unilateral primary osteoarthritis, left knee; W19.XXXA Unspecified fall, initial encounter; Z98.890 Other specified postprocedural states
CPT/HCPCS: 73721

== ENCOUNTER 2018-09-02 14:15 | Outpatient (CLI) | payer BC ==
[~2018-09-02] VITALS: Ht 170.2 cm; Wt 94.4 kg
[~2018-09-02 14:15] MED LIST changes: -AMLO10TA6 PO; +AMLO10TA7 PO
[2018-09-02 14:28] VITALS: BP 137/82
[2018-09-02] MEDS ORDERED: GABA-488 PO (15:24)
[2018-09-02] MEDS ORDERED: ENAL20TA PO (15:24)
[2018-09-02] MEDS ORDERED: FESO4TAB PO (15:24)
[2018-09-02 15:36] LABS: BASOPHILS % (AUTO) 1 % (0-10); EOSINOPHILS # (AUTO) 0.1 10^3/uL (0.0-0.3); EOSINOPHILS % (AUTO) 3 % (0-10); HEMATOCRIT 40 % (35-52); HEMOGLOBIN 13.8 G/DL (11.5-16.0); LYMPHOCYTES # (AUTO) 1.4 X 10^3 (1.0-4.0); LYMPHOCYTES % (AUTO) 27 % (12-44); MEAN CORPUSCULAR HEMOGLOBIN 31 PG (25-34); MEAN CORPUSCULAR HGB CONC 34 G/DL (32-36); MEAN CORPUSCULAR VOLUME 90 FL (80-99); MEAN PLATELET VOLUME 9.4 FL (7.4-10.4); MONOCYTES # (AUTO) 0.5 X 10^3 (0.0-1.0); MONOCYTES % (AUTO) 10 % (0-12); NEUTROPHILS # (AUTO) 3.2 X 10^3 (1.8-7.8); NEUTROPHILS % (AUTO) 61 % (42-75); PLATELET COUNT 191 10^3/uL (130-400); RED CELL DISTRIBUTION WIDTH 12.7 % (10.0-14.5); WHITE BLOOD COUNT 5.3 10^3/uL (4.3-11.0)
[2018-09-02 15:36] LABS: BILIRUBIN,URINE NEGATIVE (NEGATIVE); CLARITY,URINE CLEAR; COLOR,URINE YELLOW; GLUCOSE, URINE (UA) NEGATIVE (NEGATIVE); KETONES,URINE NEGATIVE (NEGATIVE); LEUKOCYTE ESTERASE ,URINE 1+ (NEGATIVE); NITRITE,URINE NEGATIVE (NEGATIVE); PH,URINE 6 (5-9); PROTEIN,URINE 1+ (NEGATIVE); UROBILINOGEN,URINE NORMAL (NORMAL)
[2018-09-02 16:00] LABS: PROTHROMBIN TIME PATIENT 13.4 SEC (12.2-14.7)
[2018-09-02 16:01] LABS: ALANINE AMINOTRANSFERASE 49 U/L (0-55); ALBUMIN 3.9 GM/DL (3.2-4.5); ALKALINE PHOSPHATASE 79 U/L (40-136); BILIRUBIN,TOTAL 0.3 MG/DL (0.1-1.0); BUN/CREATININE RATIO 21; CALCIUM 9.3 MG/DL (8.5-10.1); CARBON DIOXIDE 28 MMOL/L (21-32); CHLORIDE 100 MMOL/L (98-107); CREATININE SERUM 0.76 MG/DL (0.60-1.30); GFR ESTIMATED > 60; GLUCOSE 197 MG/DL (70-105); SODIUM 136 MMOL/L (135-145); TOTAL PROTEIN 7.2 GM/DL (6.4-8.2)
[2018-09-02 16:04] LABS: ERYTHROCYTE SEDIMENTATION RATE 26 MM/HR (0-30)
[2018-09-02 16:26] LABS: BACTERIA,URINE FEW /HPF
[2018-09-02 16:27] LABS: HYALINE CASTS, URINE 0-2 /LPF
--- NOTE | 2018-09-02 16:41 | Diagnostic Imaging Report ---
INDICATION: Preop for total knee replacement. TIME OF EXAM: 3:07 p.m. COMPARISON: Correlation is made with prior study from 02/10/2018. FINDINGS: The heart size is normal. The pulmonary vascularity is unremarkable. The lungs are clear. No infiltrate, effusion or pneumothorax is detected. IMPRESSION: No acute cardiopulmonary process is detected. Dictated by: Dictated on workstation # [id number]
[2018-09-03] MEDS ORDERED: MULT1TAB69 PO (13:29)
[2018-09-03] MEDS ORDERED: GABA-488 PO (13:29)
[2018-09-03] MEDS ORDERED: ENAL10TA PO (13:29)
[2018-09-03] MEDS ORDERED: BUPR150T14 PO (13:29)
[2018-09-03] MEDS ORDERED: SCOP1PAT11 TD (13:36)
== END 2018-09-02 15:25 | disposition home or self-care (01) ==
LOC: PREOP 14:15
PROVIDERS: ATTEND Orthopaedic Surgery
DX: Z01.810 Encounter for preprocedural cardiovascular examination (principal); Z01.812 Encounter for preprocedural laboratory examination; Z11.2 Encounter for screening for other bacterial diseases; M17.12 Unilateral primary osteoarthritis, left knee; R53.83 Other fatigue
CPT/HCPCS: 36415; 71046; 80053; 81000; 85025; 85610; 85652; 86850; 86900; 86901; 87081

== ENCOUNTER 2018-09-08 07:15 | Inpatient (IN) | payer BC ==
--- NOTE | 2018-08-30 08:55 | HISTORY AND PHYSICAL ---
DATE OF SERVICE: 09/08/2018 DATE OF ADMISSION: 09/08/2018. This will be for inpatient admission 09/08/2018. The patient will require regular inpatient admission due to pain management to gait abnormalities and weakness. HISTORY OF PRESENT ILLNESS: The patient is a 63-year-old female with complaints of progressive worsening left knee pain. She has undergone treatment with arthroscopy, injections, anti-inflammatories and rest without relief. Radiographs reveal severe tricompartmental osteoarthritis. She reports loss of function and because of this has elected to proceed with total knee arthroplasty. REVIEW OF SYSTEMS: No chest pain, no shortness of breath, no dysuria. PAST MEDICAL HISTORY: Diabetes mellitus type 2, osteoarthritis, hypertension, transverse myelitis, arthritis, depression. PAST SURGICAL HISTORY: Hysterectomy, total hip arthroplasty, left thumb, right thumb, left knee arthroscopy, left foot bunionectomy, bladder suspension. FAMILY HISTORY: Significant for alcoholism, ischemic heart disease, hypertension. PRIMARY CARE PROVIDER: Dr. Haddad. MEDICATIONS: Tramadol, hydrocodone, metformin, enalapril, nadolol, Premarin, aripiprazole, omeprazole, amlodipine, glyburide, temazepam, Januvia, bupropion, gabapentin, tramadol. ALLERGIES: No known drug allergies. SOCIAL HISTORY: The patient is a former smoker with 28.5 pack year history. Denies alcohol use. PHYSICAL EXAMINATION: GENERAL: The patient is well developed, well-nourished, in no acute distress. HEENT: Normocephalic, atraumatic. Pupils are equal, round, reactive to light. Oropharynx is clear. NECK: Supple. No lymphadenopathy. LUNGS: Clear to auscultation bilaterally. HEART: Regular rate and rhythm. ABDOMEN: Soft, nontender, nondistended. EXTREMITIES: The left knee demonstrates some mild effusion. There is no erythema or warmth. She has pain along the lateral joint line with Teresa's and tenderness along the medial femoral condyle. There is patellofemoral crepitus noted with range of motion. Active range of motion 0/2/125. There is no varus valgus laxity. Negative anterior and posterior drawer. She has negative straight leg raise. She ambulates with an antalgic gait on the left. IMPRESSION: Left knee severe osteoarthritis, unresponsive to conservative measures. PLAN: Left total knee arthroplasty. Risks, benefits, options, ramifications and recovery have been discussed at length with the patient. She understands and wishes to proceed. Job ID: [id number] DocumentID: [id number] Dictated Date: 08/30/2018 08:17:52 Biological Chemist Date: 08/30/2018 08:54:45 Dictated By: KESHAWN CHRISTINA MD
--- NOTE | 2018-09-03 13:43 | NUR ---
CALLED SHANIA FOR A LIST OF RECENTLY FILLED MEDICATIONS AND THEN CALLED THE PATIENT TO GO OVER THAT LIST WITH HER. [facility] FILLED: 08-31-18 NADOLOL 40MG DAILY (TAKES AT HS) 08-31-18 TRANSDERM SCOPOLAMINE PATCH (TO PUT ON NIGHT BEFORE SURGERY) 08-22-18 WELLBUTRIN SR 150MG 1.5 AM AND 1 HS (TAKES 1.5HS AND 1 AM) 08-22-18 GLYBURIDE 5MG 2 BID 08-22-18 TEMAZEPAM 15MG 2 HS PRN (TAKES 1 HS AND IF WAKES UP AGAIN TAKES SECOND DOSE) 08-13-18 ABILIFY 5MG DAILY (TAKES HS) 08-13-18 JANUVIA 100MG DAILY 08-13-18 TOVIAZ ER 4MG DAILY 08-13-18 AMLODIPINE 10MG DAILY 08-07-18 GABAPENTIN 300MG 1 HS THEN INCREASE TO 1 BID THEN INCREASED TO TID IF TOLERATED (SHE TAKES 1 AT 4AM AND THEN 2 AT HS) 08-07-18 ESTRADIOL 2MG DAILY 07-23-18 ENALAPRIL 10MG 3 DAILY (STATES SHE TAKES 1 BID) 03-29-18 METFORMIN 1000MG BID #60 (STATES SHE DOES TAKE BID EVERYDAY) SHE TAKES A [employer] DAILY OTC
[~2018-09-08] VITALS: Ht 170.2 cm; Wt 92.1 kg
[~2018-09-08 07:15] MED LIST changes: +FESO4TAB PO; +GABA-488 PO; +SCOP1PAT11 TD
--- OUTSIDE RECORDS SUMMARY | 2018-09-08 07:22 | XMS REPORT | Continuity of Care Document ---
Author Author [facility] Organization [facility] Address Unknown Phone Unavailable Allergies Active Description Code Type Severity Reaction Onset Reported/Identified Relationship to Patient Clinical Status Yes No Known Drug Allergies [id number] Drug Allergy Unknown N/A 07/02/2017 Medications There is no data. Problems Date Dx Coded Attending Type Code Diagnosis Diagnosed By 06/18/1546 JUAREZ ENRIQUEZ DO Ot G37.3 ACUTE TRANSVERSE MYELITIS IN DEMYELINATI 05/21/2012 Ot 346.90 MIGRAINE UNSPECIFIED W/O INTRACT [...] PHAN ROSS, SHILO Reza Ot Z79.899 OTHER CARE INFORMATION ASSOCIATE (CURRENT) DRUG THERAPY 10/11/2015 Ot 790.5 10/11/2015 [...] KAYLAN HOBBS MD Ot 786.50 10/11/2015 ANTONINA HERNÁNDEZ MD Ot 786.2 10/31/2015 Ot 790.5 10/31/2015 [...] HOBBS MD Ot 786.50 10/31/2015 ANTONINA HERNÁNDEZ MD, Ot 786.2 12/14/2015 KESHAWN CHRISTINA MD, Ot [...] UNSP ROTATR-CUFF TEAR/RUPTR OF LEFT SHOU 05/23/2016 RUSTY WORTHY DO Ot E11.9 TYPE 2 DIABETES MELLITUS WITHOUT COMPLIC 05/23/2016 RUSTY WORTHY DO Ot E86.0 DEHYDRATION 05/23/2016 RUSTY WORTHY DO Ot I10 ESSENTIAL (PRIMARY) HYPERTENSION 05/23/2016 RUSTY WORTHY DO Ot N10 ACUTE PYELONEPHRITIS 05/23/2016 RUSTY WORTHY DO Ot Z79.84 CUSTODIAL (CURRENT) USE OF ORAL HYPOGLYC 05/23/2016 RUSTY WORTHY DO Ot E11.9 TYPE 2 DIABETES MELLITUS WITHOUT COMPLIC 05/23/2016 RUSTY WORTHY DO Ot E86.0 DEHYDRATION 05/23/2016 RUSTY WORTHY DO Ot I10 ESSENTIAL (PRIMARY) HYPERTENSION 05/23/2016 RUSTY WORTHY DO Ot N10 ACUTE PYELONEPHRITIS 05/23/2016 RUSTY WORTHY DO Ot Z79.84 CUSTODIAL (CURRENT) USE OF ORAL HYPOGLYC 05/23/2016 Ot [...] MD Ot 424.0 MITRAL VALVE DISORDER 05/23/2016 FABY ROSS, KAYLAN Rider Ot 785.1 PALPITATIONS 05/23/2016 FABY ROSS, KAYLAN Rider Ot 786.09 RESPIRATORY ABNORM NEC 05/23/2016 FABY ROSS, KAYLAN Rider Ot 786.50 CHEST PAIN NOS 05/23/2016 BETTY ROSS, ANTONINA Rider Ot 786.2 COUGH 05/23/2016 SANFORD ROSS, KESHAWN Cunningham Ot M75.102 UNSP ROTATR-CUFF TEAR/RUPTR OF LEFT SHOU 05/23/2016 ZAYNAB DO, RUSTY K Ot E11.9 TYPE 2 DIABETES MELLITUS WITHOUT COMPLIC 05/23/2016 WORTHY DO, RUSTY K Ot E86.0 DEHYDRATION 05/23/2016 WORTHY DO, RUSTY K Ot I10 ESSENTIAL (PRIMARY) HYPERTENSION 05/23/2016 WORTHY DO, RUSTY K Ot N10 ACUTE PYELONEPHRITIS 05/23/2016 WORTHY DO, RUSTY K Ot Z79.84 CUSTODIAL (CURRENT) USE OF ORAL HYPOGLYC 05/23/2016 WORTHY DO, RUSTY K Ot E11.9 TYPE 2 DIABETES MELLITUS WITHOUT COMPLIC 05/23/2016 WORTHY DO, RUSTY K Ot E86.0 DEHYDRATION 05/23/2016 WORTHY DO, RUSTY K Ot I10 ESSENTIAL (PRIMARY) HYPERTENSION 05/23/2016 WORTHY DO, RUSTY K Ot N10 ACUTE PYELONEPHRITIS 05/23/2016 WORTHY DO, RUSTY K Ot Z79.84 CARE INFORMATION ASSOCIATE (CURRENT) USE OF ORAL HYPOGLYC 05/24/2016 WORTHY DO, URSTY K Ot E11.9 TYPE 2 DIABETES MELLITUS WITHOUT COMPLIC 05/24/2016 WORTHY DO, RUSTY K Ot E86.0 DEHYDRATION 05/24/2016 WORTHY DO, RUSTY K Ot I10 ESSENTIAL (PRIMARY) HYPERTENSION 05/24/2016 WORTHY DO, RUSTY K Ot N10 ACUTE PYELONEPHRITIS 05/24/2016 WORTHY DO, RUSTY K Ot Z79.84 CARE INFORMATION ASSOCIATE (CURRENT) USE OF ORAL HYPOGLYC 05/25/2016 WORTHY DO, RUSTY K Ot E11.9 TYPE 2 DIABETES MELLITUS WITHOUT COMPLIC 05/25/2016 WORTHY DO, RUSTY K Ot E86.0 DEHYDRATION 05/25/2016 WORTHY DO, RUSTY K Ot I10 ESSENTIAL (PRIMARY) HYPERTENSION 05/25/2016 WORTHY DO, RUSTY K Ot N10 ACUTE PYELONEPHRITIS 05/25/2016 WORTHY DO, RUSTY K Ot Z79.84 CARE INFORMATION ASSOCIATE (CURRENT) USE OF ORAL HYPOGLYC 05/25/2016 WORTHY DO, RUSTY K Ot E11.9 TYPE 2 DIABETES MELLITUS WITHOUT COMPLIC 05/25/2016 WORTHY DO, RUSTY K Ot E86.0 DEHYDRATION 05/25/2016 WORTHY DO, RUSTY K Ot I10 ESSENTIAL (PRIMARY) HYPERTENSION 05/25/2016 WORTHY DO, RUSTY K Ot N10 ACUTE PYELONEPHRITIS 05/25/2016 WORTHY DO, RUSTY K Ot Z79.84 CUSTODIAL (CURRENT) USE OF ORAL HYPOGLYC 05/25/2016 WORTHY DO, RUSTY K Ot E11.9 TYPE 2 DIABETES MELLITUS WITHOUT COMPLIC 05/25/2016 WORTHY DO, RUSTY K Ot E86.0 DEHYDRATION 05/25/2016 WORTHY DO, RUSTY K Ot I10 ESSENTIAL (PRIMARY) HYPERTENSION 05/25/2016 WORTHY DO, RUSTY K Ot N10 ACUTE PYELONEPHRITIS 05/25/2016 WORTHY DO, RUSTY K Ot Z79.84 CARE INFORMATION ASSOCIATE (CURRENT) USE OF ORAL HYPOGLYC 05/26/2016 WORTHY DO, RUSTY K Ot E11.9 TYPE 2 DIABETES MELLITUS WITHOUT COMPLIC 05/26/2016 WORTHY DO, RUSTY K Ot E86.0 DEHYDRATION 05/26/2016 WORTHY DO, RUSTY K Ot I10 ESSENTIAL (PRIMARY) HYPERTENSION 05/26/2016 WORTHY DO, RUSTY K Ot N10 ACUTE PYELONEPHRITIS 05/26/2016 WORTHY DO, RUSTY K Ot Z79.84 CARE INFORMATION ASSOCIATE (CURRENT) USE OF ORAL HYPOGLYC 05/27/2016 WORTHY DO, RUSTY K Ot E11.9 TYPE 2 DIABETES MELLITUS WITHOUT COMPLIC 05/27/2016 WORTHY DO, RUSTY K Ot E86.0 DEHYDRATION 05/27/2016 WORTHY DO, RUSTY K Ot I10 ESSENTIAL (PRIMARY) HYPERTENSION 05/27/2016 WORTHY DO, RUSTY K Ot N10 ACUTE PYELONEPHRITIS 05/27/2016 WORTHY DO, RUSTY K Ot Z79.84 CUSTODIAL (CURRENT) USE OF ORAL HYPOGLYC 05/28/2016 WORTHY DO, RUSTY K Ot B37.3 CANDIDIASIS OF VULVA AND VAGINA 05/28/2016 WORTHY DO, RUSTY K Ot B96.81 HELICOBACTER PYLORI THE CAUSE OF DISE 05/28/2016 WORTHY DO, RUSTY K Ot E11.9 TYPE 2 DIABETES MELLITUS WITHOUT COMPLIC 05/28/2016 ZAYNAB MEJÍARUSTY Ot E86.0 DEHYDRATION 05/28/2016 WORTHY DO RUSTY Kim Ot E87.2 ACIDOSIS 05/28/2016 WORTHY DO RUSTY Kim Ot I10 ESSENTIAL (PRIMARY) HYPERTENSION 05/28/2016 RUSTY WORTHY DO Ot J18.9 PNEUMONIA, UNSPECIFIED ORGANISM 05/28/2016 RUSTY WORTHY DO Ot J90 PLEURAL EFFUSION, NOT ELSEWHERE CLASSIFI 05/28/2016 ZAYNAB MEJÍA RUSTY Kim Ot K52.9 NONINFECTIVE GASTROENTERITIS AND COLITIS 05/28/2016 ZAYNAB MEJÍA RUSTY Kim Ot N10 ACUTE PYELONEPHRITIS 05/28/2016 WORTHY DO RUSTY Kim Ot Z23 ENCOUNTER FOR IMMUNIZATION 05/28/2016 WORTHY DO RUSTY Kim Ot Z79.84 CARE INFORMATION ASSOCIATE (CURRENT) USE OF ORAL HYPOGLYC 10/23/2016 Ot 596.51 HYPERTONICITY OF BLADDER 10/23/2016 Ot 618.01 CYSTOCELE, MIDLINE 10/23/2016 Ot 788.30 UNSPECIFIED URINARY INCONTINENCE 10/23/2016 Ot V72.63 PRE- PROCEDURAL LABORATORY EXAMINATION 10/23/2016 Ot V74.8 SCREEN- BACTERIAL DIS NEC 02/25/2017 MARIAM GOLDSTEIN MD, Ot E11.9 TYPE 2 DIABETES MELLITUS WITHOUT COMPLIC 02/25/2017 MARIAM GOLDSTEIN MD, Ot F32.9 MAJOR DEPRESSIVE DISORDER, SINGLE EPISOD 02/25/2017 MARIAM GOLDSTEIN MD Ot I10 ESSENTIAL (PRIMARY) HYPERTENSION 02/25/2017 MARIAM GOLDSTEIN MD Ot K21.9 GASTRO-ESOPHAGEAL REFLUX DISEASE WITHOUT 02/25/2017 MARIAM GOLDSTEIN MD, Ot K64.1 SECOND DEGREE HEMORRHOIDS 02/25/2017 MARIAM GOLDSTEIN MD Ot N81.6 RECTOCELE 02/25/2017 MARIAM GOLDSTEIN MD Ot Z12.11 ENCOUNTER FOR SCREENING FOR MALIGNANT NE 02/25/2017 MARIAM GOLDSTEIN MD, Ot Z79.899 OTHER CUSTODIAL (CURRENT) DRUG THERAPY 02/25/2017 MARIAM GOLDSTEIN MD, Ot Z96.641 PRESENCE OF RIGHT ARTIFICIAL HIP JOINT 02/26/2017 MARIAM GOLDSTEIN MD Ot E11.9 TYPE 2 DIABETES MELLITUS WITHOUT COMPLIC 02/26/2017 MARIAM GOLDSTEIN MD, Ot F32.9 MAJOR DEPRESSIVE DISORDER, SINGLE EPISOD 02/26/2017 MARIAM GOLDSTEIN MD Ot I10 ESSENTIAL (PRIMARY) HYPERTENSION 02/26/2017 MARIAM GOLDSTEIN MD, Ot K21.9 GASTRO-ESOPHAGEAL REFLUX DISEASE WITHOUT 02/26/2017 MARIAM GOLDSTEIN MD, Ot K64.1 SECOND DEGREE HEMORRHOIDS 02/26/2017 MARIAM GOLDSTEIN MD Ot N81.6 RECTOCELE 02/26/2017 MARIAM GOLDSTEIN MD, Ot Z12.11 ENCOUNTER FOR SCREENING FOR MALIGNANT NE 02/26/2017 MARIAM GOLDSTEIN MD Ot Z79.899 OTHER CARE INFORMATION ASSOCIATE (CURRENT) DRUG THERAPY 02/26/2017 MARIAM GOLDSTEIN MD, [...] Ot Z01.818 ENCOUNTER FOR OTHER PREPROCEDURAL EXAMIN 07/09/2017 LIZ PENA MD, Ot E11.9 TYPE 2 DIABETES MELLITUS WITHOUT COMPLIC 07/09/2017 LIZ PENA MD, Ot I10 ESSENTIAL (PRIMARY) HYPERTENSION 07/09/2017 LIZ PENA MD, Ot N81.10 CYSTOCELE, UNSPECIFIED 07/09/2017 LIZ PENA MD, Ot Z79.899 OTHER CUSTODIAL (CURRENT) DRUG THERAPY 07/09/2017 LIZ PENA MD, Ot Z96.641 PRESENCE OF RIGHT ARTIFICIAL HIP JOINT 07/09/2017 LIZ PENA MD, Ot E11.9 TYPE 2 DIABETES MELLITUS WITHOUT COMPLIC 07/09/2017 LIZ PENA MD, Ot I10 ESSENTIAL (PRIMARY) HYPERTENSION 07/09/2017 LIZ PENA MD, Ot N81.10 CYSTOCELE, UNSPECIFIED 07/09/2017 BECKY ROSS, LIZ Matson Ot Z79.899 OTHER CARE INFORMATION ASSOCIATE (CURRENT) DRUG THERAPY 07/09/2017 BECKY ROSS, LIZ Matson Ot Z96.641 PRESENCE OF RIGHT ARTIFICIAL HIP JOINT 09/20/2017 Ot 596.51 HYPERTONICITY OF BLADDER 09/20/2017 Ot 618.01 CYSTOCELE, MIDLINE 09/20/2017 Ot 788.30 UNSPECIFIED URINARY INCONTINENCE 09/20/2017 Ot V72.63 PRE- PROCEDURAL LABORATORY EXAMINATION 09/20/2017 Ot V74.8 SCREEN- BACTERIAL DIS NEC 09/24/2017 Ot 596.51 HYPERTONICITY OF BLADDER 09/24/2017 Ot 618.01 CYSTOCELE, MIDLINE 09/24/2017 Ot 788.30 UNSPECIFIED URINARY INCONTINENCE 09/24/2017 Ot V72.63 PRE- PROCEDURAL LABORATORY EXAMINATION 09/24/2017 Ot V74.8 SCREEN- BACTERIAL DIS NEC 09/25/2017 Ot 596.51 HYPERTONICITY OF BLADDER 09/25/2017 Ot 618.01 CYSTOCELE, MIDLINE 09/25/2017 Ot 788.30 UNSPECIFIED URINARY INCONTINENCE 09/25/2017 Ot V72.63 PRE- PROCEDURAL LABORATORY EXAMINATION 09/25/2017 Ot V74.8 SCREEN- BACTERIAL DIS NEC 11/09/2017 Ot 596.51 HYPERTONICITY OF BLADDER 11/09/2017 Ot 618.01 CYSTOCELE, MIDLINE 11/09/2017 Ot 788.30 UNSPECIFIED URINARY INCONTINENCE 11/09/2017 Ot V72.63 PRE- PROCEDURAL LABORATORY EXAMINATION 11/09/2017 Ot V74.8 SCREEN- BACTERIAL DIS NEC 11/13/2017 Ot 596.51 HYPERTONICITY OF BLADDER 11/13/2017 Ot 618.01 CYSTOCELE, MIDLINE 11/13/2017 Ot 788.30 UNSPECIFIED URINARY INCONTINENCE 11/13/2017 Ot V72.63 PRE- PROCEDURAL LABORATORY EXAMINATION 11/13/2017 Ot V74.8 SCREEN- BACTERIAL DIS NEC 12/11/2017 Ot 596.51 HYPERTONICITY OF BLADDER 12/11/2017 Ot 618.01 CYSTOCELE, MIDLINE 12/11/2017 Ot 788.30 UNSPECIFIED URINARY INCONTINENCE 12/11/2017 Ot V72.63 PRE- PROCEDURAL LABORATORY EXAMINATION 12/11/2017 Ot V74.8 SCREEN- BACTERIAL DIS NEC 02/11/2018 ANTONINA HERNÁNDEZ MD, Ot E11.9 TYPE 2 DIABETES MELLITUS WITHOUT COMPLIC 02/11/2018 ANTONINA HERNÁNDEZ MD, Ot E78.00 PURE HYPERCHOLESTEROLEMIA, UNSPECIFIED 02/11/2018 ANTONINA HERNÁNDEZ MD Ot G81.04 FLACCID HEMIPLEGIA AFFECTING LEFT NONDOM 02/11/2018 ANTONINA HERNÁNDEZ MD Ot I10 ESSENTIAL (PRIMARY) HYPERTENSION 02/11/2018 ANTONINA HERNÁNDEZ MD, Ot K21.9 GASTRO-ESOPHAGEAL REFLUX DISEASE WITHOUT 02/11/2018 ANTONINA HERNÁNDEZ MD, Ot Z79.84 CUSTODIAL (CURRENT) USE OF ORAL HYPOGLYC 02/17/2018 CLARA SIMPSON MD Ot E11.9 TYPE 2 DIABETES MELLITUS WITHOUT COMPLIC 02/17/2018 CLARA SIMPSON MD Ot E78.00 PURE HYPERCHOLESTEROLEMIA, UNSPECIFIED 02/17/2018 CLARA SIMPSON MD Ot F32.9 MAJOR DEPRESSIVE DISORDER, SINGLE EPISOD 02/17/2018 CLARA SIMPSON MD E Ot F41.9 ANXIETY DISORDER, UNSPECIFIED 02/17/2018 CALVIN ROSS CLARA E Ot G37.3 ACUTE TRANSVERSE MYELITIS IN DEMYELINATI 02/17/2018 CALVIN ROSS CLARA E Ot I10 ESSENTIAL (PRIMARY) HYPERTENSION 02/17/2018 CLARA SIMPSON MD Ot K21.9 GASTRO-ESOPHAGEAL REFLUX DISEASE WITHOUT 02/17/2018 CALVIN ROSS CLARA E Ot N31.9 NEUROMUSCULAR DYSFUNCTION OF BLADDER, UN 02/17/2018 CALVIN ROSS CLARA E Ot Z79.84 CARE INFORMATION ASSOCIATE (CURRENT) USE OF ORAL HYPOGLYC 02/17/2018 CALVIN ROSS CLARA E Ot Z87.891 PERSONAL HISTORY OF NICOTINE DEPENDENCE 03/31/2018 JUAREZ ENRIQUEZ DO Ot G37.3 ACUTE TRANSVERSE MYELITIS IN DEMYELINATI 04/02/2018 JUAREZ ENRIQUEZ DO Ot G37.3 ACUTE TRANSVERSE MYELITIS IN DEMYELINATI 04/02/2018 JUAREZ ENRIQUEZ DO Ot G37.3 ACUTE TRANSVERSE MYELITIS IN DEMYELINATI 04/15/2018 JUAREZ ENRIQUEZ DO Ot G37.3 ACUTE TRANSVERSE MYELITIS IN DEMYELINATI 06/07/2018 SANFORD ROSS, KESHAWN Cunningham Ot M17.12 UNILATERAL PRIMARY OSTEOARTHRITIS, LEFT 06/07/2018 ZAKESHAWN STRICKLAND MD, Ot S83.242A OTH TEAR OF MEDIAL MENISCUS, CURRENT INJ 06/07/2018 KESHAWN CHRISTINA MD Ot S83.272A COMPLEX TEAR OF LAT MENSC, CURRENT INJUR 06/07/2018 KESHAWN CHRISTINA MD Ot W19.XXXA UNSPECIFIED FALL, INITIAL ENCOUNTER 06/07/2018 KESHAWN CHRISTINA MD, Ot Z98.890 OTHER SPECIFIED POSTPROCEDURAL STATES 06/15/2018 ANTONINA HERNÁNDEZ MD, Ot G37.3 ACUTE TRANSVERSE MYELITIS IN DEMYELINATI 06/15/2018 ANTONINA HERNÁNDEZ MD, Ot M50.321 OTHER CERVICAL DISC DEGENERATION AT C4-C 06/15/2018 ANTONINA HERNÁNDEZ MD, Ot M89.9 DISORDER OF BONE, UNSPECIFIED 06/15/2018 KESHAWN CHRISTINA MD, Ot M17.12 UNILATERAL PRIMARY OSTEOARTHRITIS, LEFT 06/15/2018 KESHAWN CHRISTINA MD, Ot S83.242A OTH TEAR OF MEDIAL MENISCUS, CURRENT INJ 06/15/2018 KESHAWN CHRISTINA MD Ot S83.272A COMPLEX TEAR OF LAT MENSC, CURRENT INJUR 06/15/2018 KESHAWN CHRISTINA MD Ot W19.XXXA UNSPECIFIED FALL, INITIAL ENCOUNTER 06/15/2018 KESHAWN CHRISTINA MD, Ot Z98.890 OTHER SPECIFIED POSTPROCEDURAL STATES 06/15/2018 ANTONINA HERNÁNDEZ MD, Ot G37.3 ACUTE TRANSVERSE MYELITIS IN DEMYELINATI 06/15/2018 ANTONINA HERNÁNDEZ MD, Ot M50.321 OTHER CERVICAL DISC DEGENERATION AT C4-C 06/15/2018 ANTONINA HERNÁNDEZ MD, Ot M89.9 DISORDER OF BONE, UNSPECIFIED 06/15/2018 KESHAWN CHRISTINA MD, Ot M17.12 UNILATERAL PRIMARY OSTEOARTHRITIS, LEFT 06/15/2018 KESHAWN CHRISTINA MD Ot S83.242A OTH TEAR OF MEDIAL MENISCUS, CURRENT INJ 06/15/2018 KESHAWN CHRISTINA MD Ot S83.272A COMPLEX TEAR OF LAT MENSC, CURRENT INJUR 06/15/2018 KESHAWN CHRISTINA MD Ot W19.XXXA UNSPECIFIED FALL, INITIAL ENCOUNTER 06/15/2018 KESHAWN CHRISTINA MD Ot Z98.890 OTHER SPECIFIED POSTPROCEDURAL STATES 06/24/2018 KESHAWN CHRISTINA MD, Ot M17.12 UNILATERAL PRIMARY OSTEOARTHRITIS, LEFT 06/24/2018 KESHAWN CHRISTINA MD, Ot S83.242A OTH TEAR OF MEDIAL MENISCUS, CURRENT INJ 06/24/2018 KESHAWN CHRISTINA MD, Ot S83.272A COMPLEX TEAR OF LAT MENSC, CURRENT INJUR 06/24/2018 KESHAWN CHRISTINA MD Ot W19.XXXA UNSPECIFIED FALL, INITIAL ENCOUNTER 06/24/2018 KESHAWN CHRISTINA MD, Ot Z98.890 OTHER SPECIFIED POSTPROCEDURAL STATES 09/02/2018 ANTONINA HERNÁNDEZ MD, Ot G37.3 ACUTE TRANSVERSE MYELITIS IN DEMYELINATI 09/02/2018 ANTONINA HERNÁNDEZ MD, Ot M50.321 OTHER CERVICAL DISC DEGENERATION AT C4-C 09/02/2018 ANTONINA HERNÁNDEZ MD, Ot M89.9 DISORDER OF BONE, UNSPECIFIED 09/02/2018 KESHAWN CHRISTINA MD, Ot M17.12 UNILATERAL PRIMARY OSTEOARTHRITIS, LEFT 09/02/2018 KESHAWN CHRISTINA MD, Ot S83.242A OTH TEAR OF MEDIAL MENISCUS, CURRENT INJ 09/02/2018 KESHAWN CHRISTINA MD, Ot S83.272A COMPLEX TEAR OF LAT MENSC, CURRENT INJUR 09/02/2018 KESHAWN CHRISTINA MD, Ot W19.XXXA UNSPECIFIED FALL, INITIAL ENCOUNTER 09/02/2018 KESHAWN CHRISTINA MD, Ot Z98.890 OTHER SPECIFIED POSTPROCEDURAL STATES 09/03/2018 KESHAWN CHRISTINA MD, Ot M17.12 UNILATERAL PRIMARY OSTEOARTHRITIS, LEFT 09/03/2018 KESHAWN CHRISTINA MD Ot R53.83 OTHER FATIGUE 09/03/2018 KESHAWN CHRISTINA MD, Ot Z01.810 ENCOUNTER FOR PREPROCEDURAL CARDIOVASCUL 09/03/2018 KESHAWN CHRISTINA MD, Ot Z01.812 ENCOUNTER FOR PREPROCEDURAL LABORATORY E 09/03/2018 KESHAWN CHRISTINA MD, Ot Z11.2 ENCOUNTER FOR SCREENING FOR OTHER BACTER Procedures There is no data. Results Test [...] - 05/22/16 13:12 Bacterial blood culture NG NRG Bacterial blood culture - 05/22/16 13:35 QUANTITY OF GROWTH Isolated NRG Bacterial blood culture [id number] NR Capillary blood glucose measurement by glucometer (mass/volume) [...] NRG Blood erythrocyte morphology finding identification NORMAL NR Blood lactic acid measurement (moles/volume) - 05/25/16 [...] - 05/25/16 02:15 Bacterial blood culture NG NRG Fibrin D-dimer FEU measurement in platelet poor [...] - 05/25/16 02:23 Bacterial blood culture NG NRG Arterial blood gas measurement - 05/25/16 03:50 [...] Manual blood segmented neutrophils/100 leukocytes 55 % NRG Blood band neutrophils/100 leukocytes 4 % NRG Manual blood lymphocytes/100 leukocytes 25 % NRG Manual eosinophils/100 leukocytes in nose 0 % NRG Manual blood basophils/100 leukocytes 0 % NRG Manual blood lymphocytes variant/100 leukocytes 2 % NRG Blood polychromasia detection by light microscopy SLIGHT NRG Comprehensive metabolic panel - 05/26/16 05:32 Serum [...] NRG Serum or plasma glucose measurement (mass/volume) 209 [...] blood basophil count (count/volume) 0.0 10*3/uL 0.0-0.1 Complete blood count (CBC) with automated white blood cell (WBC) differential - 02/10/18 17:50 Blood leukocytes automated count (number/volume) 6.4 10*3/uL 4.3-11.0 Blood erythrocytes automated count (number/volume) 4.59 10*6/uL 4.35-5.85 Venous blood hemoglobin measurement (mass/volume) 14.2 g/dL 11.5-16.0 Blood hematocrit (volume fraction) 41 % 35-52 Automated erythrocyte mean corpuscular volume 89 [foz_us] 80-99 Automated erythrocyte mean corpuscular hemoglobin (mass per erythrocyte) 31 pg 25-34 Automated erythrocyte mean corpuscular hemoglobin concentration measurement ( mass/volume) 35 g/dL 32-36 Automated erythrocyte distribution width ratio 12.5 % 10.0-14.5 Automated blood platelet count (count/volume) 200 10*3/uL 130-400 Automated blood platelet mean volume measurement 9.3 [foz_us] 7.4-10.4 Automated blood neutrophils/100 leukocytes 65 % 42-75 Automated blood lymphocytes/100 leukocytes 24 % 12-44 Blood monocytes/100 leukocytes 9 % 0-12 Automated blood eosinophils/100 leukocytes 2 % 0-10 Automated blood basophils/100 leukocytes 1 % 0-10 Blood neutrophils automated count (number/volume) 4.2 10*3 1.8-7.8 Blood lymphocytes automated count (number/volume) 1.5 10*3 1.0-4.0 Blood monocytes automated count (number/volume) 0.6 10*3 0.0-1.0 Automated eosinophil count 0.1 10*3/uL 0.0-0.3 Automated blood basophil count (count/volume) 0.0 10*3/uL 0.0-0.1 Comprehensive metabolic panel - 02/10/18 17:50 Serum or plasma sodium measurement (moles/volume) 135 mmol/L 135-145 Serum or plasma potassium measurement (moles/volume) 4.3 mmol/L 3.6-5.0 Serum or plasma chloride measurement (moles/volume) 101 mmol/L 98-107 Carbon dioxide 25 mmol/L 21-32 Serum or plasma anion gap determination (moles/volume) 9 mmol/L 5-14 Serum or plasma urea nitrogen measurement (mass/volume) 11 mg/dL 7-18 Serum or plasma creatinine measurement (mass/volume) 0.73 mg/dL 0.60-1.30 Serum or plasma urea nitrogen/creatinine mass ratio 15 NRG Serum or plasma creatinine measurement with calculation of estimated glomerular filtration rate > NRG Serum or plasma glucose measurement (mass/volume) 302 mg/dL 70-105 Serum or plasma calcium measurement (mass/volume) 8.9 mg/dL 8.5-10.1 Serum or plasma total bilirubin measurement (mass/volume) 0.3 mg/dL 0.1-1.0 Serum or plasma alkaline phosphatase measurement (enzymatic activity/volume) 85 U/L 40-136 Serum or plasma aspartate aminotransferase measurement (enzymatic activity/ volume) 69 U/L 5-34 Serum or plasma alanine aminotransferase measurement (enzymatic activity/volume ) 118 U/L 0-55 Serum or plasma protein measurement (mass/volume) 7.3 g/dL 6.4-8.2 Serum or plasma albumin measurement (mass/volume) 4.1 g/dL 3.2-4.5 PT panel in platelet poor plasma by coagulation assay - 02/10/18 17:50 Prothrombin time (PT) in platelet poor plasma by coagulation assay 13.8 s 12.2-14.7 INR in platelet poor plasma or blood by coagulation assay 1.1 0.8-1.4 Activated partial thromboplastin time (aPTT) in platelet poor plasma bycoagulation assay - 02/10/18 17:50 Activated partial thromboplastin time (aPTT) in platelet poor plasma bycoagulation assay 27 s 24-35 Fibrin D-dimer FEU measurement in platelet poor plasma (mass/volume) - 17:50 Fibrin D-dimer FEU measurement in platelet poor plasma (mass/volume) 0.47 ug/mL 0.00-0.49 Serum or plasma troponin i.cardiac measurement (mass/volume) - 02/10/18 17:50 Serum or plasma troponin i.cardiac measurement (mass/volume) < ng/ mL <0.30 Complete urinalysis with reflex to culture - 02/10/18 19:14 Urine color determination YELLOW NRG Urine clarity determination CLEAR NRG Urine pH measurement by test strip 6.5 5-9 Specific gravity of urine by test strip 1.005 1.016- 1.022 Urine protein assay by test strip, semi-quantitative 1+ NEGATIVE Urine glucose detection by automated test strip 2+ NEGATIVE Erythrocytes detection in urine sediment by light microscopy NEGATIVE NEGATIVE Urine ketones detection by automated test strip NEGATIVE NEGATIVE Urine nitrite detection by test strip NEGATIVE NEGATIVE Urine total bilirubin detection by test strip NEGATIVE NEGATIVE Urine urobilinogen measurement by automated test strip (mass/volume) NORMAL NORMAL Urine leukocyte esterase detection by dipstick NEGATIVE NEGATIVE Automated urine sediment erythrocyte count by microscopy (number/high power field) NONE NRG Automated urine sediment leukocyte count by microscopy (number/high power field ) RARE NRG Bacteria detection in urine sediment by light microscopy NEGATIVE NRG Squamous epithelial cells detection in urine sediment by light microscopy 2-5 NRG Crystals detection in urine sediment by light microscopy NONE NRG Casts detection in urine sediment by light microscopy NONE NRG Mucus detection in urine sediment by light microscopy NEGATIVE NRG Complete urinalysis with reflex to culture NO NRG Capillary blood glucose measurement by glucometer (mass/volume) - 02/10/18 19: 22 Capillary blood glucose measurement by glucometer (mass/volume) 222 mg/dL 70-110 Complete blood count (CBC) with automated white blood cell (WBC) differential - 02/11/18 03:00 Blood leukocytes automated count (number/volume) 6.8 10*3/uL 4.3-11.0 Blood erythrocytes automated count (number/volume) 4.39 10*6/uL 4.35-5.85 Venous blood hemoglobin measurement (mass/volume) 14.0 g/dL 11.5-16.0 Blood hematocrit (volume fraction) 40 % 35-52 Automated erythrocyte mean corpuscular volume 90 [foz_us] 80-99 Automated erythrocyte mean corpuscular hemoglobin (mass per erythrocyte) 32 pg 25-34 Automated erythrocyte mean corpuscular hemoglobin concentration measurement ( mass/volume) 35 g/dL 32-36 Automated erythrocyte distribution width ratio 12.5 % 10.0-14.5 Automated blood platelet count (count/volume) 184 10*3/uL 130-400 Automated blood platelet mean volume measurement 9.5 [foz_us] 7.4-10.4 Automated blood neutrophils/100 leukocytes 62 % 42-75 Automated blood lymphocytes/100 leukocytes 25 % 12-44 Blood monocytes/100 leukocytes 12 % 0-12 Automated blood eosinophils/100 leukocytes 2 % 0-10 Automated blood basophils/100 leukocytes 1 % 0-10 Blood neutrophils automated count (number/volume) 4.2 10*3 1.8-7.8 Blood lymphocytes automated count (number/volume) 1.7 10*3 1.0-4.0 Blood monocytes automated count (number/volume) 0.8 10*3 0.0-1.0 Automated eosinophil count 0.1 10*3/uL 0.0-0.3 Automated blood basophil count (count/volume) 0.1 10*3/uL 0.0-0.1 Comprehensive metabolic panel - 02/11/18 03:00 Serum or plasma sodium measurement (moles/volume) 135 mmol/L 135-145 Serum or plasma potassium measurement (moles/volume) 4.0 mmol/L 3.6-5.0 Serum or plasma chloride measurement (moles/volume) 101 mmol/L 98-107 Carbon dioxide 25 mmol/L 21-32 Serum or plasma anion gap determination (moles/volume) 9 mmol/L 5-14 Serum or plasma urea nitrogen measurement (mass/volume) 12 mg/dL 7-18 Serum or plasma creatinine measurement (mass/volume) 0.70 mg/dL 0.60-1.30 Serum or plasma urea nitrogen/creatinine mass ratio 17 NRG Serum or plasma creatinine measurement with calculation of estimated glomerular filtration rate > NRG Serum or plasma glucose measurement (mass/volume) 176 mg/dL 70-105 Serum or plasma calcium measurement (mass/volume) 8.8 mg/dL 8.5-10.1 Serum or plasma total bilirubin measurement (mass/volume) 0.4 mg/dL 0.1-1.0 Serum or plasma alkaline phosphatase measurement (enzymatic activity/volume) 80 U/L 40-136 Serum or plasma aspartate aminotransferase measurement (enzymatic activity/ volume) 60 U/L 5-34 Serum or plasma alanine aminotransferase measurement (enzymatic activity/volume ) 102 U/L 0-55 Serum or plasma protein measurement (mass/volume) 6.8 g/dL 6.4-8.2 Serum or plasma albumin measurement (mass/volume) 3.9 g/dL 3.2-4.5 Lipid 1996 panel - 02/11/18 03:00 Serum or plasma triglyceride measurement (mass/volume) 270 mg/dL <150 Serum or plasma cholesterol measurement (mass/volume) 179 mg/dL < 200 Serum or plasma cholesterol in HDL measurement (mass/volume) 32 mg/ dL 40-60 Cholesterol in LDL [mass/volume] in serum or plasma by direct assay 111 mg/dL 1-129 Serum or plasma cholesterol in VLDL measurement (mass/volume) 54 mg/ dL 5-40 Capillary blood glucose measurement by glucometer (mass/volume) - 02/11/18 06: 30 Capillary blood glucose measurement by glucometer (mass/volume) 231 mg/dL 70-110 Capillary blood glucose measurement by glucometer (mass/volume) - 02/11/18 10: 51 Capillary blood glucose measurement by glucometer (mass/volume) 175 mg/dL 70-110 Capillary blood glucose measurement by glucometer (mass/volume) - 02/15/18 17: 25 Capillary blood glucose measurement by glucometer (mass/volume) 400 mg/dL 70-110 Capillary blood glucose measurement by glucometer (mass/volume) - 02/15/18 20: 37 Capillary blood glucose measurement by glucometer (mass/volume) 353 mg/dL 70-110 Capillary blood glucose measurement by glucometer (mass/volume) - 02/16/18 05: 40 Capillary blood glucose measurement by glucometer (mass/volume) 218 mg/dL 70-110 Capillary blood glucose measurement by glucometer (mass/volume) - 02/16/18 11: 05 Capillary blood glucose measurement by glucometer (mass/volume) 244 mg/dL 70-110 Capillary blood glucose measurement by glucometer (mass/volume) - 02/16/18 16: 47 Capillary blood glucose measurement by glucometer (mass/volume) 395 mg/dL 70-110 Capillary blood glucose measurement by glucometer (mass/volume) - 02/16/18 20: 41 Capillary blood glucose measurement by glucometer (mass/volume) 296 mg/dL 70-110 Capillary blood glucose measurement by glucometer (mass/volume) - 02/17/18 05: 39 Capillary blood glucose measurement by glucometer (mass/volume) 110 mg/dL 70-110 Capillary blood glucose measurement by glucometer (mass/volume) - 02/17/18 10: 59 Capillary blood glucose measurement by glucometer (mass/volume) 274 mg/dL 70-110 Capillary blood glucose measurement by glucometer (mass/volume) - 02/17/18 15: 23 Capillary blood glucose measurement by glucometer (mass/volume) 338 mg/dL 70-110 Methicillin resistant Staphylococcus aureus (MRSA) screening culture - 14:49 Methicillin resistant Staphylococcus aureus (MRSA) screening culture NEG NRG Complete blood count (CBC) with automated white blood cell (WBC) differential - 09/02/18 14:55 Blood leukocytes automated count (number/volume) 5.3 10*3/uL 4.3-11.0 Blood erythrocytes automated count (number/volume) 4.49 10*6/uL 4.35-5.85 Venous blood hemoglobin measurement (mass/volume) 13.8 g/dL 11.5-16.0 Blood hematocrit (volume fraction) 40 % 35-52 Automated erythrocyte mean corpuscular volume 90 [foz_us] 80-99 Automated erythrocyte mean corpuscular hemoglobin (mass per erythrocyte) 31 pg 25-34 Automated erythrocyte mean corpuscular hemoglobin concentration measurement ( mass/volume) 34 g/dL 32-36 Automated erythrocyte distribution width ratio 12.7 % 10.0-14.5 Automated blood platelet count (count/volume) 191 10*3/uL 130-400 Automated blood platelet mean volume measurement 9.4 [foz_us] 7.4-10.4 Automated blood neutrophils/100 leukocytes 61 % 42-75 Automated blood lymphocytes/100 leukocytes 27 % 12-44 Blood monocytes/100 leukocytes 10 % 0-12 Automated blood eosinophils/100 leukocytes 3 % 0-10 Automated blood basophils/100 leukocytes 1 % 0-10 Blood neutrophils automated count (number/volume) 3.2 10*3 1.8-7.8 Blood lymphocytes automated count (number/volume) 1.4 10*3 1.0-4.0 Blood monocytes automated count (number/volume) 0.5 10*3 0.0-1.0 Automated eosinophil count 0.1 10*3/uL 0.0-0.3 Automated blood basophil count (count/volume) 0.0 10*3/uL 0.0-0.1 Comprehensive metabolic panel - 09/02/18 14:55 Serum or plasma sodium measurement (moles/volume) 136 mmol/L 135-145 Serum or plasma potassium measurement (moles/volume) 4.0 mmol/L 3.6-5.0 Serum or plasma chloride measurement (moles/volume) 100 mmol/L 98-107 Carbon dioxide 28 mmol/L 21-32 Serum or plasma anion gap determination (moles/volume) 8 mmol/L 5-14 Serum or plasma urea nitrogen measurement (mass/volume) 16 mg/dL 7-18 Serum or plasma creatinine measurement (mass/volume) 0.76 mg/dL 0.60-1.30 Serum or plasma urea nitrogen/creatinine mass ratio 21 NRG Serum or plasma creatinine measurement with calculation of estimated glomerular filtration rate > NRG Serum or plasma glucose measurement (mass/volume) 197 mg/dL 70-105 Serum or plasma calcium measurement (mass/volume) 9.3 mg/dL 8.5-10.1 Serum or plasma total bilirubin measurement (mass/volume) 0.3 mg/dL 0.1-1.0 Serum or plasma alkaline phosphatase measurement (enzymatic activity/volume) 79 U/L 40-136 Serum or plasma aspartate aminotransferase measurement (enzymatic activity/ volume) 39 U/L 5-34 Serum or plasma alanine aminotransferase measurement (enzymatic activity/volume ) 49 U/L 0-55 Serum or plasma protein measurement (mass/volume) 7.2 g/dL 6.4-8.2 Serum or plasma albumin measurement (mass/volume) 3.9 g/dL 3.2-4.5 CALCIUM CORRECTED 9.4 mg/dL 8.5-10.1 PT panel in platelet poor plasma by coagulation assay - 09/02/18 14:55 Prothrombin time (PT) in platelet poor plasma by coagulation assay 13.4 s 12.2-14.7 INR in platelet poor plasma or blood by coagulation assay 1.0 0.8-1.4 Erythrocyte sedimentation rate by westergren method - 09/02/18 14:55 Erythrocyte sedimentation rate by westergren method 26 mm 0-30 Blood type T Indirect antibody screen panel - 09/02/18 14:55 ABO+Rh group AP NRG Blood group antibody screen NEGATIVE NRG Complete urinalysis with reflex to culture - 09/02/18 15:17 Urine color determination YELLOW NRG Urine clarity determination CLEAR NRG Urine pH measurement by test strip 6 5-9 Specific gravity of urine by test strip 1.025 1.016- 1.022 Urine protein assay by test strip, semi-quantitative 1+ NEGATIVE Urine glucose detection by automated test strip NEGATIVE NEGATIVE Erythrocytes detection in urine sediment by light microscopy NEGATIVE NEGATIVE Urine ketones detection by automated test strip NEGATIVE NEGATIVE Urine nitrite detection by test strip NEGATIVE NEGATIVE Urine total bilirubin detection by test strip NEGATIVE NEGATIVE Urine urobilinogen measurement by automated test strip (mass/volume) NORMAL NORMAL Urine leukocyte esterase detection by dipstick 1+ NEGATIVE Automated urine sediment erythrocyte count by microscopy (number/high power field) NONE NRG Automated urine sediment leukocyte count by microscopy (number/high power field ) [HPF] NRG Bacteria detection in urine sediment by light microscopy FEW NRG Squamous epithelial cells detection in urine sediment by light microscopy 10-25 NRG Crystals detection in urine sediment by light microscopy NONE NRG Casts detection in urine sediment by light microscopy PRESENT NRG Mucus detection in urine sediment by light microscopy SMALL NRG Complete urinalysis with reflex to culture NO NRG Hyaline casts detection in urine sediment by light microscopy 0-2 NRG Encounters ACCT No. Visit Date/Time Discharge Status Pt. Type Provider Facility Loc./Unit Complaint [id number] 09/02/2018 14:15:00 09/02/2018 15:25:00 DIS Outpatient KESHAWN CHRISTINA MD [facility] PREOP LEFT TKR [id number] 06/04/2018 14:50:00 06/04/2018 23:59:59 CLS Outpatient KESHAWN CHRISTINA MD [facility] RAD ACUTE TEAR OF MEDIAL MENISCUS [id number] 03/19/2018 15:25:00 04/15/2018 15:47:00 DIS Outpatient JUAREZ ENRIQUEZ DO [facility] REHAB ACUTE TRANSVERSE MYELITIS [id number] 04/09/2018 12:40:00 04/09/2018 23:59:59 CLS Outpatient ANTONINA HERNÁNDEZ MD [facility] RAD ACUTE TRANSVERSE MYELITIS IN DEMYELINATING DISEASE [id number] 02/10/2018 21:00:00 02/11/2018 14:25:00 DIS Inpatient ANTONINA HERNÁNDEZ MD [facility] ICU L SIDE WEAKNESS; BILATERAL ARM/HAND PARESTHESIAS [id number] 07/08/2017 10:56:00 07/09/2017 13:40:00 DIS Outpatient LIZ PENA MD [facility] SDC RECTOCELE,VAGINAL PROLAPSE [id number] 07/02/2017 11:15:00 07/02/2017 12:19:00 DIS Outpatient LIZ PENA MD [facility] PREOP RECTOCELE, VAGINIAL PROLAPSE [id number] 02/25/2017 08:27:00 02/25/2017 11:55:00 DIS Outpatient MARIAM GOLDSTEIN MD [facility] ENDO SCREENING [id number] 02/23/2017 05:39:00 02/23/2017 14:33:00 DIS Outpatient MARIAM GOLDSTEIN MD [facility] PREOP SCREENING [id number] 05/22/2016 09:19:00 05/28/2016 09:03:00 DIS Inpatient ZAYNAB MEJÍA RUSTY Judy [facility] 4TH DEHYRDATION [id number] 11/21/2015 11:43:00 11/21/2015 23:59:59 CLS Outpatient KESHAWN CHRISTINA MD [facility] RAD RTC TEAR LEFT [id number] 05/09/2015 22:50:00 05/10/2015 01:06:00 DIS Emergency PHAN ROSS, SHILO Reza [facility] ER VOMITING,ABD PAIN [id number] 03/05/2015 15:23:00 03/05/2015 23:59:59 CLS Outpatient ANTONINA HERNÁNDEZ MD [facility] RAD CHRONIC COUGH [id number] 06/26/2014 08:03:00 06/26/2014 23:59:59 CLS Outpatient KAYLAN HOBBS MD [facility] CARD PALPITATIONS,MR [id number] 06/23/2014 13:40:00 06/23/2014 23:59:59 CLS Outpatient KAYLAN HOBBS MD [facility] CARD CT,PALPITATIONS, MR [id number] 05/19/2014 10:53:00 05/19/2014 23:59:59 CLS Outpatient ANTONINA HERNÁNDEZ MD [facility] RAD CHRONIC COUGH [id number] 09/08/2018 10:45:00 PEN Preadmit KESHAWN CHRISTINA MD LEFT KNEE OA [id number] 02/15/2018 17:09:00 ACT Inpatient CALVIN ROSS, CLARA Adrian [facility] IRF TRANSVERSE MYELITIS [id number] 10/13/2012 10:53:00 Document Registration [id number] 07/07/2012 06:00:00 Document Registration [id number] 06/30/2012 08:28:00 Document Registration [id number] 05/21/2012 15:41:00 Document Registration
[2018-09-08] MEDS ORDERED: diphenhydrAMINE 50 MG/ML INJ (BENADRYL) IVP PRN (07:30)
[2018-09-08] MEDS ORDERED: morphine PCA 100 MG/100 ML BAG IV PRN (07:30)
[2018-09-08] MEDS ORDERED: CEFUROXIME INJECTION 1,500 MG in WATER (STERILE) FOR INJECTION 15 ML IV ONE (07:30)
--- NOTE | 2018-09-08 07:33 | Progress Note-Pre Operative ---
Pre-Operative Progress Note H&P Reviewed The H&P was reviewed, patient examined and no changes noted. Date Seen by Provider: Sep 08, 2018 Time Seen by Provider: 07:33 Date H&P Reviewed: Sep 08, 2018 Time H&P Reviewed: 07:33 Pre-Operative Diagnosis: left knee primary osteoarthritis KESHAWN CHRISTINA MD Sep 08, 2018 07:33
--- NOTE | 2018-09-08 07:34 | Progress Note-Post Operative ---
Post-Operative Progess Note Surgeon (s)/Principal Bioinformatics Specialist (s) Surgeon KESHAWN CHRISTINA MD Principal Bioinformatics Specialist: Jimbo Jensen Pre-Operative Diagnosis left knee primary osteoarthritis Post-Operative Diagnosis left knee primary osteoarthritis Procedure & Operative Findings Date of Procedure 09/08/18 Procedure Performed/Findings left total knee arthroplasty Anesthesia Type GETA Estimated Blood Loss Estimated blood loss (mL): minimal Specimens/Packing Specimens Removed none Packing: none KESHAWN CHRISTINA MD Sep 08, 2018 07:34
--- NOTE | 2018-09-08 07:35 | D/C HH Face to Face Order ---
D/C Face to Face Orders Instructions for Patient [facility], Patient Instructions/FollowUp: three weeks Physician to follow Patient: three weeks Discharge Diet for Home: Regular Diet Patient Data-Allergies,Ht & Wt Patient Allergies: Coded Allergies: No Known Drug Allergies (Unverified , 07/02/17) Height (Feet): 5 Height (Inches): 7.00 Weight (Pounds): 208 Weight (Ounces): 1.0 Home Health Need/Face to Face Date of Face to Face: Sep 08, 2018 Clinical Findings: Instability, Muscle weakness, Pain with ambulation, Unsteady gait I have seen Pt [id number]: Yes Discharged To: Home Diagnosis/Conditions: left total knee arthroplasty Patient is Homebound due to: Virgilio fall risk due to instabilty, Muscle weakness , Pain w/ambulation Homebound Status Due to the above stated illness, injury or surgical procedure (medical condition or diagnosis) and associated clinical findings, the patient is homebound because of his/her inability to leave home except with aid of a supportive device and/or person AND leaving the home requires a considerable and taxing effort or is medically contraindicated. Pt req the following assistanc: [facility] Nursing Orders Home Health Services Order: Physical Therapy-Evaluate & Treat DC left knee ileana and apply steri strips 09/22/18 Therapy Orders Therapy Orders: Physical Therapy, PT to assess for OT Therapy Specific Orders: Eval assistive deivces, Teach enviro modifications/ safety, Gait training, Increase strength/endurance, Provider maintenance therapy , Restore ROM Certify Stmt I certify that this patient is under my care and that I, a nurse practitioner or a physician; a optometrist assistant working with me, had a face to face encounter that - meets the physician face to face encounter requirements with this patient as dated. KESHAWN CHRISTINA MD Sep 08, 2018 07:35
[2018-09-08] MEDS ORDERED: OXYC1TAB87 PO (07:36)
[2018-09-08] MEDS: LACTATED RINGERS 1,000 ML IV PRN ×2 (07:40→10:05)
[2018-09-08] MEDS ORDERED: CATHETER FLUSH 10 ML SYR IV PRN (07:45)
[2018-09-08] MEDS ORDERED: INTRA-ARTICULAR IU ONE ×5 (07:45)
[2018-09-08] MEDS ORDERED: FAMOTIDINE 20MG/2ML IV (PEPCID) ONE (08:01)
[2018-09-08] MEDS ORDERED: ONDANSETRON 4 MG/2 ML (SDV) Z0FRAN ONE ×3 (08:01→10:56)
[2018-09-08 08:16] VITALS: BP 124/74
[2018-09-08] MEDS ORDERED: MIDAZOLAM 2 MG/2 ML (VERSED) VIAL ONE (08:26)
[2018-09-08] MEDS ORDERED: fentaNYL INJECTION 100 MCG/2 ML AMP ONE (08:27)
[2018-09-08] MEDS ORDERED: FAMOTIDINE 20MG/2ML IV (PEPCID) IV ONE (08:30)
[2018-09-08] MEDS ORDERED: ONDANSETRON 4 MG/2 ML (SDV) Z0FRAN IV ONE (08:30)
[2018-09-08] MEDS: SENNA W/DOCUSATE (SENOKOT S) TABLET PO SCH ×2 (09:00→20:39)
[2018-09-08] MEDS ORDERED: TRANEXAMIC ACID 100 MG/ML 10 ML INJECTION IV ONE ×2 (09:28→10:28)
[2018-09-08] MEDS ORDERED: SEVOFLURANE (ULTANE) 15 ML INHAL SOLN ONE ×2 (10:28→10:29)
[2018-09-08] MEDS ORDERED: LIDOCAINE PF 2% 5 ML (XYLOCAINE) VIAL ONE (10:28)
[2018-09-08] MEDS ORDERED: proPOfol 200 MG/20 ML (DIPRIVAN) VIAL IV ONE (10:28)
[2018-09-08] MEDS ORDERED: morphine INJ 10 MG/ML 1ML (SYR OR VIAL) ONE (10:44)
[2018-09-08] MEDS ORDERED: LABETALOL HCL 20 MG/4 ML VIAL IV ONE (11:15)
[2018-09-08] MEDS ORDERED: morphine INJ 10 MG/ML 1ML (SYR OR VIAL) IVP ONE (11:15)
[2018-09-08] MEDS ORDERED: PROMETHAZINE INJ 25 MG/ML (PHENERGAN) AMP IVP ONE (11:15)
[2018-09-08] MEDS ORDERED: HYDROmorphone 2 MG/ML VIAL (DILAUDID) IV ONE (11:15)
--- NOTE | 2018-09-08 11:31 | Diagnostic Imaging Report ---
INDICATION: Postoperative. TECHNIQUE: 2 post operative radiographs of the left knee 10:56 AM CORRELATION STUDY: None FINDINGS: There are postsurgical changes of a total knee arthroplasty. Alignment is anatomic. Elongated somewhat tubular shaped lucencies over the distal femur and proximal tibia are present. Installed hardware appearing unremarkable. Overlying soft tissue gas collections and drainage tubing is present. IMPRESSION: Postsurgical changes of a left total knee replacement. Dictated by: Dictated on workstation # [id number]
--- NOTE | 2018-09-08 11:42 | Progress Note-Standard ---
Standard Progress Note Progress Notes/Assess & Plan Date Seen by a Provider: Sep 08, 2018 Time Seen by a Provider: 11:41 Progress/Assessment & Plan post op check No complaints denies paresthesias Radiographs--HW well positioned without fracture LLE--intact DF and PF of toes and ankle with sensation intact throughout. 2 plus DP pulse with brisk cap refill s/p ltka mobilize as able KESHAWN CHRISTINA MD Sep 08, 2018 11:42
[2018-09-08 12:00] VITALS: BP 148/70
--- NOTE | 2018-09-08 12:00 | NUR ---
TYRA NALLELY admitted to room 424-1, with an admitting diagnosis of LTKR, on 09/08/18 from [facility] via BED, accompanied by MARISSA NAIK.TYRA BROWNING introduced to surroundings, call light, bed controls, phone, TV, temperature control, lights, meal times, smoking policy, visitor policy, side rail policy, bathrooms and showers. Patient Rights given to patient in the handbook.TYRA BROWNING verbalizes understanding that [facility] is not responsible for the loss or damage to any personal effects or valuables that are kept in the patients posession during their hospitalization.
[2018-09-08] MEDS ORDERED: FLU QUADRIvalent (5+ YOA) 2018-2019 (AFLURIA) 0.5 ML IM ONE (13:00)
[2018-09-08] MEDS: NS IV 1000 ML 1,000 ML IV SCH (13:11)
--- NOTE | 2018-09-08 14:09 | NUR ---
CM/SS, respond to consult, left total knee replacement. HHC: Discussed agencies in patient service area with patient/family, coordinated with preferred agency [facility]. Referral completed for PT, anticipate discharge Thursday. DME: Patient's mother has gotten a FWW for patient home use. No other needs identified at this time.
--- NOTE | 2018-09-08 14:11 | OPERATIVE REPORT ---
DATE OF SERVICE: 09/08/2018 PREOPERATIVE DIAGNOSIS: Left knee primary osteoarthritis. POSTOPERATIVE DIAGNOSIS: Left knee primary osteoarthritis. PROCEDURE: Left total knee arthroplasty. SURGEON: Campbell Christina MD. MAGNETO REPAIRER: Jimbo Jensen, who assisted throughout the procedure and closed the incision. ANESTHESIA: General endotracheal by Hazel Haines CRNA. TOURNIQUET TIME: Approximately 60 minutes at 300 mmHg. ESTIMATED BLOOD LOSS: Minimal. DRAINS: None. COMPLICATIONS: None. MATERIALS: MicroPort cemented size 5 femur, cemented size 5 tibia with a 10 mm insert and cemented size 32 patellar button. The patient was transferred to the recovery room awake and stable condition. POSTOPERATIVE PLAN: Routine protocol. STATEMENT OF MEDICAL NECESSITY: The patient is a 63-year-old female with a longstanding progressive left knee pain. She had undergone treatment with injections and anti-inflammatories as well as arthroscopy without relief. Due to functional impairment and failure to improve with the conservative measures, the patient elected to proceed with surgical intervention. DESCRIPTION OF PROCEDURE: After risks and benefits of the procedure were discussed and questions were answered, an informed consent was signed and placed on the chart. The operative site was confirmed in the preoperative holding area initialed by the surgeon. The patient was then transported to the operating room and after adequate levels of general endotracheal anesthetic were obtained, a timeout was called confirming the operative site. The left lower extremity was prepped and draped in the usual sterile fashion with the leg elevated and the knee flexed, tourniquet was inflated to 300 mmHg. A standard anterior approach was utilized. Hemostasis was obtained with cautery. A medial parapatellar arthrotomy was performed leaving a 1 cm cuff on the patella for later reattachment. A portion of the fat pad was resected and subperiosteal release was performed of the proximal medial tibia with a curved osteotome and the ACL was resected. The intramedullary guide was passed into the femur. The distal cut was made and the femur was sized to a size 5. The 5 cutting block was placed parallel to the epicondylar axis and cuts were made from posterior to anterior. A subperiosteal release was then carefully performed on the posterior distal femur, being careful to stay on the bony surface. Intramedullary guide was then passed into the tibia. The cutting block was placed. The drop yung transected the intramedullary axis and the cut was made. The five baseplate was placed and again the drop yung transected the intermalleolar axis. This was then prepared with the drill and keel punch. The trials were inserted and the trochlear cut was made. The patella was prepared by resecting a 10 mm off the undersurface. The peg guide was placed and the peg holes were drilled. The 32 button was placed. The knee was taken through a range of motion 120 degrees of flexion with gravity was easily obtained. Full extension was easily obtained. The patella tracked well. There was no anterior/posterior or medial/lateral laxity in the flexion or extension. The trials were removed. The joint was irrigated with a pulse lavage. A periarticular block was placed in the posterior capsule, medial and lateral retinaculum extensor mechanism and subcutaneous tissues. The joint was further irrigated. The bone ends were irrigated and dried and the tibial baseplate was cemented into position. Excessive cement was removed. The superior surface was irrigated and dried and the polyethylene insert was placed. The distal femur was irrigated and dried and the femoral prosthesis was cemented into position. Excess cement was removed. The knee was brought in full extension until the cement had cured. The undersurface of the patella was irrigated and dried. The patellar button was cemented in position removing excessive cement. Once the cement had cured, the knee was taken through range of motion, full extension was easily obtained, 120 degrees of flexion with gravity was easily obtained. There was no anterior/posterior or medial/lateral laxity in flexion or extension. The joint was further irrigated with a pulse lavage. Arthrotomy was closed with #2 Tevdek in a [id number] interrupted fashion. The knee was flexed with no new tension noted at the repair site. The patella tracked well. Subcutaneous tissues were irrigated using a total of 6 liters throughout the procedure. The 0 Vicryl was used to close the deep subcutaneous layer and 2-0 Vicryl for the superficial subcutaneous layer. Rama were used on the skin. A soft dressing was applied. The tourniquet was deflated and the patient was transferred to the recovery room awake and stable condition. Job ID: [id number] DocumentID: [id number] Dictated Date: 09/08/2018 10:39:14 Circus Hand Date: 09/08/2018 14:10:58 Dictated By: CAMPBELL CHRISTINA MD
--- NOTE | 2018-09-08 15:24 | Physical Therapy Evaluation ---
PT Evaluation-General Medical Diagnosis Admission Date Sep 08, 2018 at 07:15 Medical Diagnosis: L TKA Onset Date: Sep 08, 2018 Therapy Diagnosis Therapy Diagnosis: decreased mobility, decreased ROM, gait deviation Height/Weight Height (Feet): 5 Height (Inches): 7.00 Weight (Pounds): 203 Weight (Ounces): 0.0 Precautions Precautions/Isolations: Fall Prevention, Standard Precautions Weight Bear Status Right Lower Extremity: Right Full Weight Bearing Left Lower Extremity: Left Weight Bearing/Tolerated Referral Physician: Jimbo Jensen Reason for Referral: Evaluation/Treatment Medical History Pertinent Medical History: DM, HTN Additional Medical History PAST MEDICAL HISTORY: Diabetes mellitus type 2, osteoarthritis, hypertension, transverse myelitis, arthritis, depression. PAST SURGICAL HISTORY: Hysterectomy, total hip arthroplasty, left thumb, right thumb, left knee arthroscopy, left foot bunionectomy, bladder suspension. Reviewed History: Yes Social History Home: Single Level Current Living Status: Alone Entry Into Home: Stairs With Railing PT Steps Into Home: 4 Prior/Core FIM Prior Level of Function Therapy Code Descriptions/Definitions Functional [place] Measure: 0=Not Assessed/NA 4=Minimal Assistance 1=Total Assistance 5=Supervision or Setup 2=Maximal Assistance 6=Modified [place] 3=Moderate Assistance 7=Complete [place] Therapy Quality Codes: 6 Independent with activity with or without an assistive device 5 Patient requires set up or clean up by helper. Patient completes activity by themselves 4 Supervision or touching assist (CGA). [place] provide cues , steadying assist 3 The helper provides less than half the effort to complete the activity 2 The helper provides more than half the effort to complete the activity 1 Dependent. The helper does all the effort to complete an activity 7 Patient refused to complete or attempt activity 9 The patient did not perform the activity before the current illness or injury 88 Not attempted due to Medical conditions or safety concerns Functional Abilities and Goals: Independent: Patient completed the activities by him/herself, with or without an assistive device, with no assistance from a helper. Needed Some Help: Patient needed partial assistance from another person to complete activities. Dependent: A helper completed the activities for the patient. Unknown: Not Applicable: Bed Mobility: 7 Transfers (B,C,W/C) (FIM): 7 Gait: 7 Stairs: 7 Indoor Mobility (Ambulation): Independent Stairs: Independent Prior Devices Use: None PT Evaluation-Current Subjective Pt in bed and agrees to PT. Pain Numeric Pain Scale: 5-Moderate Pain Location: Left Location Body Site: Knee Objective Patient Orientation: Person, Place, Situation, Normal For Age Attachments: SCD's, Oxygen, Polar Pack, IV ROM/Strength ROM Lower Extremities RLE WNL; LLE flex 70 ext +3 Strength Lower Extremities NT Integumentary/Posture Bowel Incontinence: No Bladder Incontinence: No Neuromuscular (Tone, Coordination, Reflexes) NT Sensory Vision: Functional Hearing: Functional Sensation Left Lower Extremity: Impaired Transfers Therapy Code Descriptions/Definitions Functional [place] Measure: 0=Not Assessed/NA 4=Minimal Assistance 1=Total Assistance 5=Supervision or Setup 2=Maximal Assistance 6=Modified [place] 3=Moderate Assistance 7=Complete [place] Transfers (B, C, W/C) (FIM): 4 Scootin Supine to/from Sit: 5 Sit to/from Stand: 4 Gait Mode of Locomotion: Walk Anticipated Mode of Locomotion: Walk Gait (FIM): 4 Distance (FIM): 3=150 ft Distance: 225' Gait Level of Assist: 4 Gait Persons Needed: 1 Gait Assistive Device: FWW Comments/Gait Description Antalgic gait, step to pattern, decreased L DF Balance Sitting Static: Good Sitting Dynamic: Good Standing Static: Good Standing Dynamic: Good Assessment/Needs Pt voices her independence and to let her do things before PT assists her. Pt is SBA with bed mobility and CGA sit<>stand transfers to FWW. Pt amb 225' with FWW and CGA for safety. Pt was able to transfer to toilet and was indep with bathroom skills. Pt returned to bed and performed supine LE ex (AP, HS, SAQ, QS , SLR) x10 reps. Pt is on CPM at 50 flex and -3 ext. Pt has all needs met and is in bed with family in room. Polar care and SCD's on. Rehab Potential: Fair Post Rehab Potential-Barriers: co-morbidities PT Short Term Goals Short Term Goals Time Frame: Sep 15, 2018 Transfers (B,C,W/C) (FIM): 6 Gait (FIM): 5 Distance (FIM): 3=150 ft Gait Distance Comment: 250' Gait Level of Assist: 5 Gait Assistive Device: FWW PT Plan Problem List Problem List: Activity Tolerance, Functional Strength, Safety, Balance, Gait, Transfer, Bed Mobility, ROM Treatment/Plan Treatment Plan: Continue Plan of Care Treatment Plan: Bed Mobility, Education, Functional Activity Geo, Functional Strength, Gait, Safety, Therapeutic Exercise, Transfers Treatment Duration: Sep 15, 2018 Frequency: 11 times per week Estimated Hrs Per Day: .25 hour per day Patient and/or Family Agrees t: Yes Safety Risks/Education Patient Education: Gait Training, Transfer Techniques, Reviewed Use of Ice, Correct Positioning, Safety Issues Teaching Recipient: Patient, Family Teaching Methods: Demonstration, Discussion Response to Teaching: Reinforcement Needed Discharge Recommendations Plan Patient will perform bed mobility and transfer training, balance and endurance training, functional strengthening, stair training, gait training, and education , to improve functional mobility and independence at home. Therapy D/C Recommendations: Home w/ Family Support, Physical Therapy Home Care Time/GCodes Time In: 1432 Time Out: 1502 Total Billed Treatment Time: 30 Total Billed Treatment 1 visit EVM 15 min EX 15 min AMANDA SMITH PT Sep 08, 2018 15:24
[2018-09-08 16:42] VITALS: BP 152/73
[2018-09-08] MEDS: CEFUROXIME INJECTION 750 MG in WATER (STERILE) FOR INJECTION 10 ML IV SCH (16:49)
[2018-09-08 20:00] VITALS: BP 176/90
[2018-09-08] MEDS: oxyCODONE/APAP 5/325MG (PERCOCET 5) TABLET PO PRN (20:39)
[2018-09-09] VITALS: BP 139/71
[2018-09-09] MEDS: CEFUROXIME INJECTION 750 MG in WATER (STERILE) FOR INJECTION 10 ML IV SCH (01:05)
[2018-09-09] MEDS: NS IV 1000 ML 1,000 ML IV SCH ×2 (01:07→13:23)
[2018-09-09] MEDS: oxyCODONE/APAP 5/325MG (PERCOCET 5) TABLET PO PRN ×6 (01:13→21:47)
[2018-09-09 04:41] VITALS: BP 150/65
[2018-09-09] MEDS: MULTIVIT W/MINERALS TAB (THERAGRAN M) PO SCH (06:00)
--- NOTE | 2018-09-09 07:20 | Anesthesia-General Post-Op ---
General Patient Condition Mental Status/LOC: Same as Preop Cardiovascular: Satisfactory Nausea/Vomiting: Absent Respiratory: Satisfactory Pain: Controlled Complications: Absent Post Op Complications Complications None Follow Up Care/Instructions Patient Instructions None needed. Anesthesia/Patient Condition Patient Condition Patient is doing well, no complaints, stable vital signs, no apparent adverse anesthesia problems. No complications reported per nursing. D/C home per [facility] Criteria: MARISSA Gonzales CRNA Sep 09, 2018 07:20
[2018-09-09 07:31] LABS: HEMOGLOBIN 11.8 G/DL (11.5-16.0)
[2018-09-09] MEDS: ASPIRIN E.C. 81 MG (ECOTRIN) TAB PO SCH (07:58)
[2018-09-09] MEDS: ENOXAPARIN 30 MG/0.3 ML (LOVENOX) SYR SC SCH ×2 (07:58→21:47)
[2018-09-09] MEDS: SENNA W/DOCUSATE (SENOKOT S) TABLET PO SCH ×2 (07:58→21:47)
--- NOTE | 2018-09-09 07:58 | Progress Note-Standard ---
Standard Progress Note Progress Notes/Assess & Plan Date Seen by a Provider: Sep 09, 2018 Time Seen by a Provider: 07:57 Progress/Assessment & Plan post op check No complaints denies paresthesias Radiographs--HW well positioned without fracture LLE--intact DF and PF of toes and ankle with sensation intact throughout. 2 plus DP pulse with brisk cap refill s/p ltka mobilize as able Final Diagnosis no complaints Vital Signs Date Time Temp Pulse Resp B/P (MAP) Pulse Ox O2 Delivery O2 Flow Rate FiO2 09/09/18 06:40 14 09/09/18 04:41 100.0 86 14 150/65 (93) 93 Room Air 09/09/18 00:00 97.8 85 18 139/71 (93) 92 Room Air 09/08/18 21:00 20 09/08/18 20:00 99.2 76 20 176/90 (118) 93 Room Air 09/08/18 20:00 Room Air 09/08/18 17:20 Room Air 09/08/18 16:42 98.4 79 20 152/73 (99) 92 Room Air 09/08/18 12:00 95 Nasal Cannula 3.00 09/08/18 12:00 98.1 77 18 148/70 (96) 98 Nasal Cannula 3.00 09/08/18 08:28 96 Room Air 09/08/18 08:16 98.1 76 16 124/74 96 Room Air I & O 09/09/18 07:00 Intake Total 3985 ml Output Total 1350 ml Balance 2635 ml Laboratory Tests Test 09/08/18 11:07 09/08/18 16:48 09/08/18 20:42 09/09/18 05:16 Range/Units Glucometer 180 H 239 H 208 H 215 H 70-110 MG/DL Test 09/09/18 07:20 Range/Units Hemoglobin 11.8 11.5-16.0 G/DL Hematocrit 34 L 35-52 % LLE--dressing intact. No calf tenderness.Neg Jodee's NVI s/p LTKA doing well PT/OT KESHAWN CHRISTINA MD Sep 09, 2018 07:57
[2018-09-09 08:00] VITALS: BP 167/77
--- NOTE | 2018-09-09 10:46 | Physical Therapy Daily Note ---
PT Daily Note-Current Subjective Pt in bed and agrees to PT. Pt requests to use bathroom before beginning ex or walking. Pain Numeric Pain Scale: 10-Worst Possible Pain Location: Left Location Body Site: Knee Mental Status Patient Orientation: Person, Place, Situation, Normal For Age Attachments: SCD's, Polar Pack, IV Transfers Therapy Code Descriptions/Definitions Functional [place] Measure: 0=Not Assessed/NA 4=Minimal Assistance 1=Total Assistance 5=Supervision or Setup 2=Maximal Assistance 6=Modified [place] 3=Moderate Assistance 7=Complete [place] Therapy Quality Codes: 6 Independent with activity with or without an assistive device 5 Patient requires set up or clean up by helper. Patient completes activity by themselves 4 Supervision or touching assist (CGA). [place] provide cues , steadying assist 3 The helper provides less than half the effort to complete the activity 2 The helper provides more than half the effort to complete the activity 1 Dependent. The helper does all the effort to complete an activity 7 Patient refused to complete or attempt activity 9 The patient did not perform the activity before the current illness or injury 88 Not attempted due to Medical conditions or safety concerns Transfers (B, C, W/C) (FIM): 4 Scootin Supine to/from Sit: 4 Sit to/from Stand: 5 Weight Bearing Right Lower Extremity: Right Full Weight Bearing Left Lower Extremity: Left Weight Bearing/Tolerated Gait Training Gait (FIM): 2 Distance (FIM): 1=092-14 ft Distance: 75' Gait Level of Assist: 4 Gait Persons Needed: 1 Gait Assistive Device: FWW Exercises Seated Therapy Exercises: Ankle pumps, Long arc quads, Hamstring Curls Seated Reps: 10 Assessment Current Status: Fair Progress Pt able required min A of LLE to perform bed mobility. Pt was indep in bathroom skills. PT replaced RLE blas hose and socks. Pt performed seated LE ex. Pt sit<> stand transfer is SBA to FWW. Pt amb 75' with CGA for safety self limited due to pain. Pt is now in recliner with all needs met. PT Short Term Goals Short Term Goals Time Frame: Sep 15, 2018 Transfers (B,C,W/C) (FIM): 6 Gait (FIM): 5 Distance (FIM): 3=150 ft Gait Distance Comment: 250' Gait Level of Assist: 5 Gait Assistive Device: FWW PT Plan Problem List Problem List: Activity Tolerance, Functional Strength, Safety, Balance, Gait, Transfer, Bed Mobility, ROM Treatment/Plan Treatment Plan: Continue Plan of Care Treatment Plan: Bed Mobility, Education, Functional Activity Geo, Functional Strength, Gait, Safety, Therapeutic Exercise, Transfers Treatment Duration: Sep 15, 2018 Frequency: 11 times per week Estimated Hrs Per Day: .25 hour per day Patient and/or Family Agrees t: Yes Time/GCodes Time In: 926 Time Out: 956 Total Billed Treatment Time: 30 Total Billed Treatment 1 visit EX 12 min FA 18 min SANAM VILLEGAS PT Sep 09, 2018 10:45
[2018-09-09 12:00] VITALS: BP 132/65
--- NOTE | 2018-09-09 13:19 | Occupational Therapy Eval ---
OT Evaluation-General/PLF Medical Diagnosis Admission Date Sep 08, 2018 at 07:15 Medical Diagnosis: L TKA Onset Date: Sep 08, 2018 Therapy Diagnosis Therapy Diagnosis: Weakness Height/Weight Height (Feet): 5 Height (Inches): 7.00 Weight (Pounds): 203 Weight (Ounces): 0.0 Precautions Precautions/Isolations: Fall Prevention, Standard Precautions Safety Interventions: None Weight Bear Status Weight Bearing Restriction: Weight Bearing/Tolerated, Full Weight Bearing Location Restriction: L LE, R LE Left LE..... WBAT Rt LE....Full WB. Referral Physician: Jimbo Jensen Referral Reason: Activity Tolerance, Self Care, Evaluation/Treatment, Strengthening/ROM Medical History Pertinent Medical History: DM, HTN Additional Medical History Transverse Myelitis, HTN, DM II, Total Hip Arthroplasty, hysterectomy, Depression, OA Current History 63 yrs old w/f admitted in ER with increased severe pain in Left Knee . Pt gone thru Total Lf knee Arthroplasty. Reviewed History: Yes Social History Home: Single Level Current Living Status: Alone Entry Into Home: Stairs With Railing Steps Into Home: 4 ADL-Prior Level of Function Therapy Code Descriptions/Definitions Functional [place] Measure: 0=Not Assessed/NA 4=Minimal Assistance 1=Total Assistance 5=Supervision or Setup 2=Maximal Assistance 6=Modified [place] 3=Moderate Assistance 7=Complete [place] Therapy Quality Codes: 6 Independent with activity with or without an assistive device 5 Patient requires set up or clean up by helper. Patient completes activity by themselves 4 Supervision or touching assist (CGA). [place] provide cues , steadying assist 3 The helper provides less than half the effort to complete the activity 2 The helper provides more than half the effort to complete the activity 1 Dependent. The helper does all the effort to complete an activity 7 Patient refused to complete or attempt activity 9 The patient did not perform the activity before the current illness or injury 88 Not attempted due to Medical conditions or safety concerns Functional Abilities and Goals: Independent: Patient completed the activities by him/herself, with or without an assistive device, with no assistance from a helper. Needed Some Help: Patient needed partial assistance from another person to complete activities. Dependent: A helper completed the activities for the patient. Unknown: Not Applicable: ADL PLOF Comments Pt was living in home alone & was Independent in all self care activities , IADLs,& ambulation.But use to had severe pain in Left knee. Self Care: Independent Functional Cognition: Independent Drive Self: Yes OT Current Status Subjective Pt in bed with her friend sitting beside her bed. Pt alert, oriented & in a good mood. Agree for OT Eval & Tx. Pain Numeric Pain Scale: 5-Moderate Pain Location: Left Location Body Site: Knee Pain Description: Throbbing, Sharp Mental Status/Objective Patient Orientation: Person, Place, Time, Situation Attachments: IV, Polar Pack, SCD's Current Glasses/Contacts: No Hearing Aids: No Dentures/Partials: No Hand Dominance: Right Upper Extremity ROM WFL Upper Extremity Coordination INTACT Upper Extremity Sensation INTACT Upper Extremity Strength MS in BUE 4/5 grossly graded. ADL-Treatment ADL-Current Completed OT assessment. Pt need SBA in supine to sit in bed, CGA sit to stand with FWW, Pt ambulate to the rest room, Independent in toileting, & toilet hyeigine, Min A in donning/doffing sock in Left foot . Unsteady standing balance due to WBAT Status on Lf Leg.. Pain in Lf Knee 5/10 on VAS . MS in BUE 4/5 grossly graded. Therapy Code Descriptions/Definitions Functional [place] Measure: 0=Not Assessed/NA 4=Minimal Assistance 1=Total Assistance 5=Supervision or Setup 2=Maximal Assistance 6=Modified [place] 3=Moderate Assistance 7=Complete [place] Therapy Quality Codes: 6 Independent with activity with or without an assistive device 5 Patient requires set up or clean up by helper. Patient completes activity by themselves 4 Supervision or touching assist (CGA). [place] provide cues , steadying assist 3 The helper provides less than half the effort to complete the activity 2 The helper provides more than half the effort to complete the activity 1 Dependent. The helper does all the effort to complete an activity 7 Patient refused to complete or attempt activity 9 The patient did not perform the activity before the current illness or injury 88 Not attempted due to Medical conditions or safety concerns Eating (FIM): 7 Grooming (FIM): 7 Bathing (FIM): 0 Upper Body Dressing (FIM): 7 Lower Body Dressing (FIM): 4 (Min A in donning Lf foot socks.) Toileting (FIM): 7 Transfers (B, C, W/C) (FIM): 5 Toilet/Commode Transfer (FIM): 5 Tub Transfer (FIM): 0 Shower Transfer (FIM): 5 Education OT Patient Education: Correct positioning, Modified ADL techniques, Purpose of tx/functional activities, Safety issues, Transfer techniques, Use of adapted equipment Teaching Recipient: Patient Teaching Methods: Demonstration Response to Teaching: Verbalize Understanding OT Short Term Goals Short Term Goals Transfers (B,C,W/C) (FIM): 6 Additional Short Term Goals: 1-Demonstrate ADL Tasks, 2-Verbalize Understanding , 3-ImproveStrength/Geo 1=Demonstrate adherence to instructed precautions during ADL tasks. 2=Patient will verbalize/demonstrate understanding of assistive devices/ modifications for ADL. 3=Patient will improve strength/tolerance for activity to enable patient to perform ADL's. OT Lpta Goals Lpta Goals Time Frame: Sep 23, 2018 Eating (FIM): 7 Grooming(FIM): 7 Bathing(FIM): 7 Bathing Location: L Arm, R Arm, L Upper Leg, R Upper Leg, L Lower Leg ( including foot), R Lower Leg (including foot), Chest, Abdomen, Buttocks, Perineal Area Upper Body Dressing(FIM): 7 Lower Body Dressing(FIM): 7 Toileting(FIM): 7 Transfers (B,C,W/C) (FIM): 7 Toilet/Commode Transfer(FIM): 7 Tub Transfer(FIM): 7 Shower Transfer(FIM): 7 Additional Goals: 1-Demonstrate ADL Tasks, 2-Verbalize Understanding, 3- ImproveStrength/Geo 1=Demonstrate adherence to instructed precautions during ADL tasks. 2=Patient will verbalize/demonstrate understanding of assistive devices/ modifications for ADL. 3=Patient will improve strength/tolerance for activity to enable patient to perform ADL's. OT Education/Plan Problem List/Assessment Assessment: Decreased Activ Tolerance, Decreased Safety Aware, Decreased UE Strength, Dependent Transfers, Impaired Bed Mobility, Impaired Funct Balance, Impaired Self-Care Skills Discharge Recommendations Plan/Recommendations: Continue POC Therapy D/C Recommendations: Home Independently Equpiment Recommendations-D/C: Extended Bath Bench, Extended Shower Sprayer, Client Services Administrator Patient/Family Goals To return home Independently with AD. Treatment Plan/Plan of Care Treatment,Training & Education: Yes Patient would benefit from OT for education, treatment and training to promote independence in ADL's, mobility, safety and/or upper extremity function for ADL' s. Plan of Care: ADL Retraining, Caregiver Training, Functional Mobility, UE Funct Exercise/Act, UE Neuromus Re-Ed/Coord Treatment Duration: Oct 07, 2018 Frequency: 5 times per week Estimated Hrs Per Day: .25 hour per day Agreement: Yes Rehab Potential: Good Time/GCodes Start Time: 11:15 Stop Time: 11:45 Total Time Billed (hr/min): 30 Billed Treatment Time 1, EVM 18 Min,, FA 12 min. Total 30 minutes VALERIO BUSH OT Sep 09, 2018 13:19
[2018-09-09] MEDS: ACETAMINOPHEN 325 MG TABLET PO PRN ×2 (13:40→18:12)
--- NOTE | 2018-09-09 14:48 | Physical Therapy Daily Note ---
PT Daily Note-Current Subjective Pt in bed and agrees to PT. Mental Status Patient Orientation: Person, Place, Situation, Normal For Age Attachments: SCD's, Polar Pack, IV Transfers Therapy Code Descriptions/Definitions Functional [place] Measure: 0=Not Assessed/NA 4=Minimal Assistance 1=Total Assistance 5=Supervision or Setup 2=Maximal Assistance 6=Modified [place] 3=Moderate Assistance 7=Complete [place] Therapy Quality Codes: 6 Independent with activity with or without an assistive device 5 Patient requires set up or clean up by helper. Patient completes activity by themselves 4 Supervision or touching assist (CGA). [place] provide cues , steadying assist 3 The helper provides less than half the effort to complete the activity 2 The helper provides more than half the effort to complete the activity 1 Dependent. The helper does all the effort to complete an activity 7 Patient refused to complete or attempt activity 9 The patient did not perform the activity before the current illness or injury 88 Not attempted due to Medical conditions or safety concerns Transfers (B, C, W/C) (FIM): 4 Supine to/from Sit: 4 Sit to/from Stand: 5 Weight Bearing Right Lower Extremity: Right Full Weight Bearing Left Lower Extremity: Left Weight Bearing/Tolerated Gait Training Gait (FIM): 4 Distance (FIM): 3=150 ft Distance: 250' Gait Level of Assist: 4 Gait Persons Needed: 1 Gait Assistive Device: FWW Exercises Supine Ex: Ankle pumps, Quad Set, Heel Slides, Short Arc Quads, Straight leg raise Supine Reps: 10 Assessment Current Status: Fair Progress Pt reports after getting set up to perform supine LE ex that she does not feel very good now. PT instructs pt to try the supine ex and see how she does. Pt is very resistive during LE ex and fights the whole time. Pt required min A with bed mobility to EOB. Pt SBA with sit<>stand to FWW. Pt amb with FWW and CGA for safety. Pt gait pattern changed many times during amb, from reciprocal at good speed, to step to and then to almost dragging RLE. Pt requested to use bathroom once getting to room and was unable to make it to toilet successfully. PT instructed pt to pull call cord when she is done. PT Short Term Goals Short Term Goals Time Frame: Sep 15, 2018 Transfers (B,C,W/C) (FIM): 6 Gait (FIM): 5 Distance (FIM): 3=150 ft Gait Distance Comment: 250' Gait Level of Assist: 5 Gait Assistive Device: FWW PT Plan Problem List Problem List: Activity Tolerance, Functional Strength, Safety, Balance, Gait, Transfer, Bed Mobility, ROM Treatment/Plan Treatment Plan: Continue Plan of Care Treatment Plan: Bed Mobility, Education, Functional Activity Geo, Functional Strength, Gait, Safety, Therapeutic Exercise, Transfers Treatment Duration: Sep 15, 2018 Frequency: 11 times per week Estimated Hrs Per Day: .25 hour per day Patient and/or Family Agrees t: Yes Time/GCodes Time In: 1407 Time Out: 1430 Total Billed Treatment Time: 23 Total Billed Treatment 1 visit GT 10 min EX 13 min SANAM VILLEGAS PT Sep 09, 2018 14:48
[2018-09-09 16:45] VITALS: BP 173/77
[2018-09-09 19:41] VITALS: BP 177/80
[2018-09-10] VITALS: BP 156/79
[2018-09-10] MEDS: oxyCODONE/APAP 5/325MG (PERCOCET 5) TABLET PO PRN ×4 (02:18→17:33)
[2018-09-10] MEDS: NS IV 1000 ML 1,000 ML IV SCH (02:18)
--- NOTE | 2018-09-10 04:02 | DISCHARGE SUMMARY ---
DATE OF SERVICE: DIAGNOSES: 1. Left knee primary osteoarthritis. 2. Diabetes mellitus. 3. Osteoarthritis. 4. Hypertension. 5. Transverse myelitis. 6. Depression. PROCEDURE: Left total knee arthroplasty. SUMMARY: The patient is a 63-year-old female who underwent a left total knee arthroplasty on date of admission. Postoperatively, she did well. At the time of discharge, her wound was clean and dry. She has no calf tenderness. Negative Homans sign. She had cleared physical therapy. She was tolerating diet well and tolerating pain with oral pain medication. CONDITION ON DISCHARGE: Good. DISCHARGE DIET: Regular. FOLLOWUP: In three weeks. ACTIVITY: Weightbearing as tolerated with walker. Home physical therapy has been arranged. DISCHARGE MEDICATIONS: Home medications, Percocet as needed for pain and aspirin. Job ID: [id number] DocumentID: [id number] Dictated Date: 09/09/2018 18:53:49 Internal Grinder Date: 09/10/2018 04:02:04 Dictated By: KESHAWN CHRISTINA MD
[2018-09-10] MEDS: MULTIVIT W/MINERALS TAB (THERAGRAN M) PO SCH (06:20)
[2018-09-10 06:32] LABS: HEMOGLOBIN 11.3 G/DL (11.5-16.0)
--- NOTE | 2018-09-10 07:05 | Progress Note-Standard ---
Standard Progress Note Progress Notes/Assess & Plan Date Seen by a Provider: Sep 10, 2018 Time Seen by a Provider: 07:04 Progress/Assessment & Plan post op check No complaints denies paresthesias Radiographs--HW well positioned without fracture LLE--intact DF and PF of toes and ankle with sensation intact throughout. 2 plus DP pulse with brisk cap refill s/p ltka mobilize as able Final Diagnosis no complaints Vital Signs Date Time Temp Pulse Resp B/P (MAP) Pulse Ox O2 Delivery O2 Flow Rate FiO2 09/10/18 06:08 18 09/10/18 00:00 99.1 84 20 156/79 (104) 94 Room Air 09/09/18 20:00 Room Air 09/09/18 19:41 99.4 94 18 177/80 (112) 97 Room Air 09/09/18 18:42 101.2 09/09/18 18:12 101.3 09/09/18 16:45 100.3 95 20 173/77 (109) 97 Room Air 09/09/18 13:40 102.2 09/09/18 12:00 102.2 102 20 132/65 (87) 96 Room Air 09/09/18 08:00 99.6 86 18 167/77 (107) 93 Room Air 09/09/18 08:00 Room Air I & O 09/10/18 07:00 Intake Total 2712 ml Output Total 2700 ml Balance 12 ml Laboratory Tests Test 09/09/18 07:20 09/09/18 11:41 09/10/18 06:04 09/10/18 06:15 Range/Units Hemoglobin 11.8 11.3 L 11.5-16.0 G/DL Hematocrit 34 L 33 L 35-52 % Glucometer 295 H 235 H 70-110 MG/DL LLE--incision clean and dry. No calf tenderness. Neg Mauricio's s/p LTKA doing well DC later today KESHAWN CHRISTINA MD Sep 10, 2018 07:05
[2018-09-10] MEDS ORDERED: morphine INJ 4 MG/ML 1 ML (VIAL/SYRINGE) IVP PRN (07:15)
--- NOTE | 2018-09-10 07:19 | Consultation ---
History of Present Illness History of Present Illness Patient Consulted On(destini/time) 09/10/18 07:13 Date Seen by Provider: Sep 10, 2018 Time Seen by Provider: 07:00 Reason for Visit: Left knee total arthroplasty History of Present Illness 63-year-old female presents [facility], [facility] for left knee total arthroplasty. She has severe arthritis of the left knee unresponsive now to medical therapy and injections. She is also known diabetic with hypertensive disease. She has been on medications for diabetes and hypertension with fairly good control. Allergies and Home Medications Allergies Coded Allergies: No Known Drug Allergies (Unverified , 07/02/17) Home Medications Amlodipine Besylate 10 Mg Tablet, 10 MG PO HS, (Reported) Bupropion HCl 150 Mg Tablet.er, 225 MG PO HS, (Reported) TAKES 1 & 1/2 (150MG) TABLET Bupropion HCl 150 Mg Tablet.er, 150 MG PO DAILY, (Reported) Enalapril Maleate 10 Mg Tablet, 10 MG PO BID, (Reported) Estradiol 2 Mg Tablet, 2 MG PO DAILY, (Reported) Fesoterodine Fumarate 4 Mg Tab.sr.24h, 4 MG PO DAILY, (Reported) Gabapentin 300 Mg Capsule, 300 MG PO 0400, (Reported) Gabapentin 300 Mg Capsule, 600 MG PO HS, (Reported) TAKES 2 (300MG) CAPSULES Glyburide 5 Mg Tablet, 10 MG PO BID, (Reported) TAKES 2 (5MG) TABLETS Metformin HCl 1,000 Mg Tablet, 1,000 MG PO BID WITH MEALS, (Reported) Multivitamin 1 Each Tablet, 1 TAB PO DAILY, (Reported) Nadolol 40 Mg Tablet, 40 MG PO HS, (Reported) Oxycodone HCl/Acetaminophen 1 Each Tablet, 1 TAB PO Q4H Prescribed by: KESHAWN CHRISTINA on 09/08/18 0736 Scopolamine 1 Each Patch.td72, 1 PATCH TD FOR SURGERY DAY, (Reported) Sitagliptin Phosphate 100 Mg Tablet, 100 MG PO DAILY, (Reported) Temazepam 15 Mg Capsule, 15-30 MG PO HS, (Reported) Patient Home Medication List Home Medication List Reviewed: Yes Past Akofepb-Uksykh-Xnvrqu Hx Patient Social History Alcohol Use: Denies Use Recreational Drug Use: No Type Used: Cigarettes Former Smoker, Quit: Jul 02, 1990 Recent Foreign Travel: No Contact w/Someone Who Travel: No Recent Infectious Disease Expo: No Recent Hopitalizations: No Immunizations Up To Date Tetanus Booster (TDap): Unknown PED Vaccines UTD: No Date of Pneumonia Vaccine: Sep 08, 2017 Date of Influenza Vaccine: May 08, 2017 Seasonal Allergies Seasonal Allergies: No Past Medical History Surgeries: Yes (R hip replaced, L foot bunion, bladder sling, L knee scope x2) Bladder Surgery, Hysterectomy, Joint Replacement, Oophorectomy, Orthopedic, Rectal Respiratory: No Currently Using CPAP: No Currently Using BIPAP: No Cardiac: Yes High Cholesterol, Hypertension Neurological: Yes (spinal lesion in neck) 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 Disorders: Yes (RECTOCELE, CYSTOCELE) Female 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 Disorders: Denies 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, 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 Sexually Transmitted Disease: No HIV/AIDS: No Genitourinary: No (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-bladder issues still) Gastrointestinal: Yes Gastroesophageal Reflux Musculoskeletal: Yes (RIGHT HIP REPLACEMENT, had spinal lesion 01/2018) Arthritis Endocrine: Yes Diabetes, Non-Insulin dep HEENT: No Loss of Vision: Denies Hearing Impairment: Denies Cancer: No Psychosocial: Yes Anxiety, Depression Integumentary: No Blood Disorders: No Adverse Reaction/Blood Tranf: No (N/A) Family Medical History Alcoholism Cardiovascular disease Psychosocial problem Review of Systems-General Constitutional: see HPI Physical Exam-General Problems Physical Exam Vital Signs Vital Signs - First Documented 09/08/18 08:16 Temp 98.1 Pulse 76 Resp 16 B/P (MAP) 124/74 Pulse Ox 96 O2 Delivery Room Air Capillary Refill : General Appearance: no apparent distress Eyes: Bilateral Eye Normal Inspection Neck: non-tender, supple Respiratory: lungs clear Cardiovascular: regular rate, rhythm Gastrointestinal: soft Rectal: deferred Extremities: other (Currently patient has left knee support status post surgery ) Skin: normal color, warm/dry Assessment/Plan Assessment/Plan Admission Diagnosis/Plan 1. Severe left knee osteoarthritis -Under care of Dr. Christina -She is now undergoing physical therapy 2. Diabetes mellitus adult onset -Sliding scale has been utilized -Today will restart Januvia, metformin, as well as glyburide -Continue to monitor fasting glucose as well as 2 hour postprandial 3. Hypertension -She will have restarted enalapril as well as amlodipine. She is also on nadalol but this primarily for migraine prophylaxis -Will continue to follow patient along with you until discharged. Admission Status: Inpatient Order (span 2 midnights) Reason for Inpatient Admission: Patient is admitted under service of orthopedics Dr. Christina and underwent left knee arthroplasty on September 08, 2018 Clinical Quality Measures DVT/VTE Risk/Contraindication: Risk Factor Score Per Nursin RFS Level Per Nursing on Admit: 4+=Very High ANTONINA HERNÁNDEZ MD Sep 10, 2018 07:19
[2018-09-10 08:00] VITALS: BP 139/65
[2018-09-10] MEDS ORDERED: MULTIVIT W/MINERALS TAB (THERAGRAN M) PO SCH (09:00)
[2018-09-10] MEDS: ASPIRIN E.C. 81 MG (ECOTRIN) TAB PO SCH (09:42)
[2018-09-10] MEDS: SENNA W/DOCUSATE (SENOKOT S) TABLET PO SCH ×2 (09:42→20:33)
[2018-09-10] MEDS: ENOXAPARIN 30 MG/0.3 ML (LOVENOX) SYR SC SCH ×2 (09:43→20:33)
--- NOTE | 2018-09-10 09:50 | Physical Therapy Daily Note ---
PT Daily Note-Current Subjective Pt is in bed with meeting manager in room and agrees to PT. Pain Numeric Pain Scale: 10-Worst Possible Pain Location: Left Location Body Site: Knee Mental Status Patient Orientation: Person, Place, Situation Attachments: Polar Pack, IV Transfers Therapy Code Descriptions/Definitions Functional [place] Measure: 0=Not Assessed/NA 4=Minimal Assistance 1=Total Assistance 5=Supervision or Setup 2=Maximal Assistance 6=Modified [place] 3=Moderate Assistance 7=Complete [place] Therapy Quality Codes: 6 Independent with activity with or without an assistive device 5 Patient requires set up or clean up by helper. Patient completes activity by themselves 4 Supervision or touching assist (CGA). [place] provide cues , steadying assist 3 The helper provides less than half the effort to complete the activity 2 The helper provides more than half the effort to complete the activity 1 Dependent. The helper does all the effort to complete an activity 7 Patient refused to complete or attempt activity 9 The patient did not perform the activity before the current illness or injury 88 Not attempted due to Medical conditions or safety concerns Transfers (B, C, W/C) (FIM): 6 Scootin Supine to/from Sit: 6 Sit to/from Stand: 6 Weight Bearing Right Lower Extremity: Right Full Weight Bearing Left Lower Extremity: Left Weight Bearing/Tolerated Gait Training Gait (FIM): 5 Distance (FIM): 3=150 ft Distance: 300' Gait Level of Assist: 5 Gait Persons Needed: 1 Gait Assistive Device: FWW Stair Training Stair Training: Handrails/: 2 handrails, uses walker Stairs (FIM): 2 #of Steps: 2 Stairs: Pattern: Step to Level of Assist: 4 Pt does not comply with VC on step pattern. Is very impulsive. Assessment Current Status: Fair Progress Pt is able to perform bed mobility mod I. Pt performs transfers mod I. Pt was able to perform bathroom skills mod I on commode by bed. Pt amb 300' with SBA. Pt performed stairs and did not comply with safety VC from PT. Pt refuses to attempt stairs again. Pt returns to room and is in bed with CPM on. Pt has all needs met. PT Short Term Goals Short Term Goals Time Frame: Sep 15, 2018 Transfers (B,C,W/C) (FIM): 6 Gait (FIM): 5 Distance (FIM): 3=150 ft Gait Distance Comment: 250' Gait Level of Assist: 5 Gait Assistive Device: FWW PT Plan Problem List Problem List: Activity Tolerance, Functional Strength, Safety, Balance, Gait, Transfer, Bed Mobility, ROM Treatment/Plan Treatment Plan: Continue Plan of Care Treatment Plan: Bed Mobility, Education, Functional Activity Geo, Functional Strength, Gait, Safety, Therapeutic Exercise, Transfers Treatment Duration: Sep 15, 2018 Frequency: 11 times per week Estimated Hrs Per Day: .25 hour per day Patient and/or Family Agrees t: Yes Time/GCodes Time In: 911 Time Out: 928 Total Billed Treatment Time: 17 Total Billed Treatment 1 visit FA 17 min SANAM VILLEGAS PT Sep 10, 2018 09:50
--- NOTE | 2018-09-10 10:00 | NUR ---
[facility] HOSPICE CLINICAL MANAGER DISCONTINUED. 84ML WASTED WITNESSED BY THIS AIRPORT MANAGER AND MARISSA COONEY.
--- NOTE | 2018-09-10 10:49 | Occupational Ther Daily Note ---
OT Current Status-Daily Note Subjective Pt in bed with CPM on. Pt's friend was seated beside her bed. Pt alert, oriented & cooperative . Pt agree for OT treatment.. Pain Numeric Pain Scale: 6 Location: Left Location Body Site: Knee Pain Description: Pressure, Throbbing Mental Status/Objective Patient Orientation: Person, Place, Time, Situation Therapy Code Descriptions/Definitions Functional [place] Measure: 0=Not Assessed/NA 4=Minimal Assistance 1=Total Assistance 5=Supervision or Setup 2=Maximal Assistance 6=Modified [place] 3=Moderate Assistance 7=Complete [place] Attachments: Polar Pack, Saline Lock, SCD's ADL-Treatment Pt participated in sponge-bath with warm " READY-BATH " Wipes. Pt wash her face , neck, around neck, arms,fore-arms & arm-pits. Pt could'nt wipes LB as pt was lying in bed with CPM On. Pt participated in strengthening ex to BUE to increase strength in BUE & to participate in all self care tasks & to push up from the EOB to stand with FWW. 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 Eating (FIM): 7 Grooming (FIM): 6 Bathing (FIM): 5 Bathing Location: L Arm, R Arm Upper Body (FIM): 7 Education OT Patient Education: Correct positioning, Instructions to caregiver, Safety issues Teaching Recipient: Patient, Friend Teaching Methods: Demonstration, Discussion Response to Teaching: Verbalize Understanding, Return Demonstration OT Short Term Goals Short Term Goals Transfers (B,C,W/C) (FIM): 6 Additional Short Term Goals: 1-Demonstrate ADL Tasks, 2-Verbalize Understanding , 3-ImproveStrength/Geo 1=Demonstrate adherence to instructed precautions during ADL tasks. 2=Patient will verbalize/demonstrate understanding of assistive devices/ modifications for ADL. 3=Patient will improve strength/tolerance for activity to enable patient to perform ADL's. OT Detention Goals Oem Sales Manager Goals Time Frame: Sep 23, 2018 Eating (FIM): 7 Grooming(FIM): 7 Bathing(FIM): 7 Bathing Location: L Arm, R Arm, L Upper Leg, R Upper Leg, L Lower Leg ( including foot), R Lower Leg (including foot), Chest, Abdomen, Buttocks, Perineal Area Upper Body Dressing(FIM): 7 Lower Body Dressing(FIM): 7 Toileting(FIM): 7 Transfers (B,C,W/C) (FIM): 7 Toilet/Commode Transfer(FIM): 7 Tub Transfer(FIM): 7 Shower Transfer(FIM): 7 Additional Goals: 1-Demonstrate ADL Tasks, 2-Verbalize Understanding, 3- ImproveStrength/Geo 1=Demonstrate adherence to instructed precautions during ADL tasks. 2=Patient will verbalize/demonstrate understanding of assistive devices/ modifications for ADL. 3=Patient will improve strength/tolerance for activity to enable patient to perform ADL's. OT Education/Plan Problem List/Assessment Assessment: Decreased Activ Tolerance, Decreased Safety Aware, Decreased UE Strength, Impaired Bed Mobility, Impaired Funct Balance, Impaired Self-Care Skills Discharge Recommendations Plan/Recommendations: Continue POC Therapy D/C Recommendations: Home Independently Equpiment Recommendations-D/C: Extended Bath Bench, Extended Shower Sprayer, Strategic Sourcing Consultant Patient/Family Goals To return Home Independently with AD. Treatment Plan/Plan of Care Treatment,Training & Education: Yes Patient would benefit from OT for education, treatment and training to promote independence in ADL's, mobility, safety and/or upper extremity function for ADL' s. Plan of Care: ADL Retraining, Caregiver Training, Functional Mobility, UE Funct Exercise/Act, UE Neuromus Re-Ed/Coord Treatment Duration: Oct 07, 2018 Frequency: 5 times per week Estimated Hrs Per Day: .25 hour per day Agreement: Yes Rehab Potential: Good Time/GCodes Start Time: 10:00 Stop Time: 10:25 Total Time Billed (hr/min): 25 Billed Treatment Time 1, ADL 10 min , Ex 15 min. Total 25 minutes VALERIO BUSH OT Sep 10, 2018 10:49
[2018-09-10] MEDS: glyBURIDE 5 MG (MICRONASE) TAB PO SCH ×2 (10:52→20:33)
[2018-09-10] MEDS: ONDANSETRON 4 MG/2 ML (SDV) Z0FRAN IVP PRN ×2 (10:52→17:45)
[2018-09-10] MEDS: ENALAPRIL 10 MG (VASOTEC) TAB PO SCH ×2 (10:52→20:33)
[2018-09-10] MEDS: ESTRADIOL 1 MG TAB (ESTRACE) PO SCH (11:46)
--- NOTE | 2018-09-10 15:08 | Physical Therapy Daily Note ---
PT Daily Note-Current Subjective Pt in bed and reports she is not going home today due to her feeling nauseous and sick and thinks it'll be too much for her mom to take care of right now. Pt agrees to PT. Pain Numeric Pain Scale: 5-Moderate Pain Location: Left Location Body Site: Knee Mental Status Attachments: Polar Pack Transfers Therapy Code Descriptions/Definitions Functional [place] Measure: 0=Not Assessed/NA 4=Minimal Assistance 1=Total Assistance 5=Supervision or Setup 2=Maximal Assistance 6=Modified [place] 3=Moderate Assistance 7=Complete [place] Therapy Quality Codes: 6 Independent with activity with or without an assistive device 5 Patient requires set up or clean up by helper. Patient completes activity by themselves 4 Supervision or touching assist (CGA). [place] provide cues , steadying assist 3 The helper provides less than half the effort to complete the activity 2 The helper provides more than half the effort to complete the activity 1 Dependent. The helper does all the effort to complete an activity 7 Patient refused to complete or attempt activity 9 The patient did not perform the activity before the current illness or injury 88 Not attempted due to Medical conditions or safety concerns Transfers (B, C, W/C) (FIM): 6 Scootin Supine to/from Sit: 6 Sit to/from Stand: 6 Weight Bearing Right Lower Extremity: Right Full Weight Bearing Left Lower Extremity: Left Weight Bearing/Tolerated Gait Training Gait (FIM): 6 Distance (FIM): 3=150 ft Distance: 200' Gait Level of Assist: 6 Gait Persons Needed: 1 Gait Assistive Device: FWW Pt amb step to pattern and toe walking on LLE Exercises Supine Ex: Ankle pumps, Quad Set, Heel Slides, Short Arc Quads, Straight leg raise Supine Reps: 10 Assessment Current Status: Fair Progress Pt self limits. Pt was able to perform all bed mobility and transfers mod I. Pt used bedside commode and was mod I with bathroom skills. Pt amb 200' with FWW mod I. Pt returned to room and performed supine LE ex. Pt flex 60 and ext +2. SPT educated pt on the importance of flexing knee actively to prevent possible negative side effects. PT Short Term Goals Short Term Goals Time Frame: Sep 15, 2018 Transfers (B,C,W/C) (FIM): 6 Gait (FIM): 5 Distance (FIM): 3=150 ft Gait Distance Comment: 250' Gait Level of Assist: 5 Gait Assistive Device: FWW PT Plan Problem List Problem List: Activity Tolerance, Functional Strength, Safety, Balance, Gait, Transfer, Bed Mobility, ROM Treatment/Plan Treatment Plan: Continue Plan of Care Treatment Plan: Bed Mobility, Education, Functional Activity Geo, Functional Strength, Gait, Safety, Therapeutic Exercise, Transfers Treatment Duration: Sep 15, 2018 Frequency: 11 times per week Estimated Hrs Per Day: .25 hour per day Patient and/or Family Agrees t: Yes Time/GCodes Time In: 1438 Time Out: 1454 Total Billed Treatment Time: 16 Total Billed Treatment 1 visit FA 16 min SANAM VILLEGAS PT Sep 10, 2018 15:07
[2018-09-10 15:38] VITALS: BP 176/84
[2018-09-10] MEDS: ACETAMINOPHEN 325 MG TABLET PO PRN ×2 (15:43→22:43)
[2018-09-10] MEDS: metFORMIN 500 MG (GLUCOPHAGE) TAB PO SCH (17:04)
[2018-09-10] MEDS ORDERED: BUPROPION HCL PO SCH (21:00)
[2018-09-10] MEDS ORDERED: GABAPENTIN 300 MG (NEURONTIN) CAP PO SCH (21:00)
[2018-09-10] MEDS ORDERED: amLODIPine 10 MG (NORVASC) TAB PO SCH (21:00)
[2018-09-11] VITALS: BP 156/71
[2018-09-11] MEDS: oxyCODONE/APAP 5/325MG (PERCOCET 5) TABLET PO PRN ×2 (03:02→08:56)
[2018-09-11] MEDS ORDERED: GABAPENTIN 300 MG (NEURONTIN) CAP PO SCH (04:00)
[2018-09-11] MEDS: metFORMIN 500 MG (GLUCOPHAGE) TAB PO SCH (06:14)
[2018-09-11] MEDS: MULTIVIT W/MINERALS TAB (THERAGRAN M) PO SCH (06:14)
[2018-09-11 06:43] LABS: HEMOGLOBIN 10.4 G/DL (11.5-16.0)
[2018-09-11 07:31] VITALS: BP 130/79
--- NOTE | 2018-09-11 08:36 | Physical Therapy Daily Note ---
PT Daily Note-Current Subjective States that she is doing well and ready to go home as soon as Dr. De Oliveira gets here. Transfers Therapy Code Descriptions/Definitions Functional [place] Measure: 0=Not Assessed/NA 4=Minimal Assistance 1=Total Assistance 5=Supervision or Setup 2=Maximal Assistance 6=Modified [place] 3=Moderate Assistance 7=Complete [place] Therapy Quality Codes: 6 Independent with activity with or without an assistive device 5 Patient requires set up or clean up by helper. Patient completes activity by themselves 4 Supervision or touching assist (CGA). [place] provide cues , steadying assist 3 The helper provides less than half the effort to complete the activity 2 The helper provides more than half the effort to complete the activity 1 Dependent. The helper does all the effort to complete an activity 7 Patient refused to complete or attempt activity 9 The patient did not perform the activity before the current illness or injury 88 Not attempted due to Medical conditions or safety concerns Sit to/from Stand: 5 Weight Bearing Right Lower Extremity: Right Full Weight Bearing Left Lower Extremity: Left Weight Bearing/Tolerated Gait Training Gait (FIM): 5 Distance (FIM): 3=150 ft Distance: 150' Gait Level of Assist: 5 Gait Persons Needed: 1 Gait Assistive Device: FWW Wheelchair Training Distance: 150' Exercises Seated Therapy Exercises: Long arc quads Seated Reps: 15 Assessment Current Status: Excellent Progress The patient is doing well and should be safe to go home. PT Short Term Goals Short Term Goals Time Frame: Sep 15, 2018 Transfers (B,C,W/C) (FIM): 6 Gait (FIM): 5 Distance (FIM): 3=150 ft Gait Distance Comment: 250' Gait Level of Assist: 5 Gait Assistive Device: FWW PT Plan Treatment/Plan Treatment Plan: Continue Plan of Care Treatment Plan: Bed Mobility, Education, Functional Activity Geo, Functional Strength, Gait, Safety, Therapeutic Exercise, Transfers Treatment Duration: Sep 15, 2018 Frequency: 11 times per week Estimated Hrs Per Day: .25 hour per day Patient and/or Family Agrees t: Yes Time/GCodes Time In: 815 Time Out: 830 Total Billed Treatment Time: 15 Total Billed Treatment 1, GT x 15 BENJAMÍN CUEVAS PT Sep 11, 2018 08:36
--- NOTE | 2018-09-11 08:43 | Progress Note (SOAP) ---
Subjective Date Seen by a Provider: Sep 11, 2018 Time Seen by a Provider: 08:00 Subjective/Events-last exam Patient feels much better today. She is without fever and she is without nausea. She is actually ready to be dismissed to home. Objective Exam Vital Signs Date Time Temp Pulse Resp B/P (MAP) Pulse Ox O2 Delivery O2 Flow Rate FiO2 09/11/18 07:31 99.9 97 20 130/79 (96) 95 Room Air 09/11/18 00:00 99.1 99 18 156/71 (99) 93 Room Air 09/10/18 23:35 99.1 09/10/18 20:00 Room Air 09/10/18 19:50 97.9 09/10/18 17:01 Room Air 09/10/18 15:43 102.3 09/10/18 15:38 102.3 109 22 176/84 (114) 94 Room Air I & O 09/11/18 07:00 Intake Total 1760 ml Output Total 950 ml Balance 810 ml Capillary Refill : General Appearance: No Apparent Distress Neck: Non Tender Respiratory: Lungs Clear Cardiovascular: Regular Rate, Rhythm Extremity: Other (Dressing noted to left knee) Results Lab Laboratory Tests 09/11/18 05:38: Glucometer 208H 09/11/18 06:05: Hemoglobin 10.4L, Hematocrit 31L Assessment/Plan Assessment/Plan Assess & Plan/Chief Complaint 1. Severe left knee osteoarthritis -Under care of Dr. De Oliveira -She is now undergoing physical therapy 09/11 -I suspect she'll be dismissed today with outpatient physical therapy 2. Diabetes mellitus adult onset -Sliding scale has been utilized -Today will restart Januvia, metformin, as well as glyburide -Continue to monitor fasting glucose as well as 2 hour postprandial 09/11 -Fasting glucose this morning 203 which is improved 3. Hypertension -She will have restarted enalapril as well as amlodipine. She is also on nadalol but this primarily for migraine prophylaxis 09/11 -Blood pressure is normalizing Clinical Quality Measures DVT/VTE Risk/Contraindication: Risk Factor Score Per Nursin RFS Level Per Nursing on Admit: 4+=Very High ANTONINA HERNÁNDEZ MD Sep 11, 2018 08:43
[2018-09-11] MEDS: glyBURIDE 5 MG (MICRONASE) TAB PO SCH (08:55)
[2018-09-11] MEDS: ENOXAPARIN 30 MG/0.3 ML (LOVENOX) SYR SC SCH (08:55)
[2018-09-11] MEDS: ENALAPRIL 10 MG (VASOTEC) TAB PO SCH (08:56)
[2018-09-11] MEDS: SENNA W/DOCUSATE (SENOKOT S) TABLET PO SCH (08:56)
[2018-09-11] MEDS: ASPIRIN E.C. 81 MG (ECOTRIN) TAB PO SCH (08:56)
[2018-09-11] MEDS: ESTRADIOL 1 MG TAB (ESTRACE) PO SCH (08:56)
[2018-09-11] MEDS ORDERED: PROPRANOLOL 20 MG (INDERAL) TABLET PO SCH (09:00)
[2018-09-11] MEDS ORDERED: buPROPion SR 150 MG (WELLBUTRIN SR) TAB PO SCH (09:00)
[2018-09-11] MEDS ORDERED: LINAGLIPTIN (TRADJENTA) 5 MG TABLET PO SCH (09:00)
[2018-09-11] MEDS ORDERED: TOLTERODINE LA 2 MG (DETROL LA) CAP PO SCH (09:00)
--- NOTE | 2018-09-11 10:30 | Progress Note-Standard ---
Standard Progress Note Progress Notes/Assess & Plan Date Seen by a Provider: Sep 11, 2018 Time Seen by a Provider: 10:29 Progress/Assessment & Plan post op check No complaints denies paresthesias Radiographs--HW well positioned without fracture LLE--intact DF and PF of toes and ankle with sensation intact throughout. 2 plus DP pulse with brisk cap refill s/p ltka mobilize as able Final Diagnosis no complaints Laboratory Tests Test 09/11/18 05:38 09/11/18 06:05 Range/Units Glucometer 208 H 70-110 MG/DL Hemoglobin 10.4 L 11.5-16.0 G/DL Hematocrit 31 L 35-52 % Vital Signs Date Time Temp Pulse Resp B/P (MAP) Pulse Ox O2 Delivery O2 Flow Rate FiO2 09/11/18 07:31 99.9 97 20 130/79 (96) 95 Room Air 09/11/18 00:00 99.1 99 18 156/71 (99) 93 Room Air 09/10/18 23:35 99.1 09/10/18 20:00 Room Air 09/10/18 19:50 97.9 09/10/18 17:01 Room Air 09/10/18 15:43 102.3 09/10/18 15:38 102.3 109 22 176/84 (114) 94 Room Air I & O 09/11/18 07:00 Intake Total 1760 ml Output Total 950 ml Balance 810 ml LLE--dressing intact . no calf tenderness. SLR s/p L TKA doing well DC home KESHAWN CHRISTINA MD Sep 11, 2018 10:30
== END 2018-09-11 10:56 | disposition home health service (06) | DRG 470 ==
LOC: 4TH 07:15 → SURG 07:16 → 4TH 12:02
PROVIDERS: ADMIT Orthopaedic Surgery; ATTEND Orthopaedic Surgery
PROC: 0SRD0J9 Replacement of Left Knee Joint with Synthetic Substitute, Cemented, Open Approach (ICD-10-PCS; principal; 2018-09-08 09:03)
DX: M17.12 Unilateral primary osteoarthritis, left knee (principal); E11.9 Type 2 diabetes mellitus without complications; I10 Essential (primary) hypertension; F32.9 Major depressive disorder, single episode, unspecified; G37.3 Acute transverse myelitis in demyelinating disease of central nervous system; E78.00 Pure hypercholesterolemia, unspecified; Z96.641 Presence of right artificial hip joint; K21.9 Gastro-esophageal reflux disease without esophagitis; Z87.891 Personal history of nicotine dependence; Z79.84 Long term (current) use of oral hypoglycemic drugs
CPT/HCPCS: 36415; 73560; 82962; 85014; 85018; 86850; 86900; 86901; 94664

== ENCOUNTER → 2018-12-14 | Outpatient (CLI) | payer BC ==
[~2018-12-14] MED LIST changes: +OXYC1TAB87 PO
--- NOTE | 2018-12-14 08:45 | Diagnostic Imaging Report ---
INDICATION: Shortness of breath and coughing over the past 4-5 days. TECHNIQUE: Two view chest at 8:35 AM CORRELATION STUDY: 09/02/2018 FINDINGS: The heart size, mediastinal configuration and pulmonary vasculature are within normal limits. Lungs demonstrate no consolidating infiltrate. There is some blunting of the costophrenic angles, left greater than right, suspect for trace pleural effusions. Visualized osseous structures are unremarkable. IMPRESSION: 1. Trace pleural effusions, left greater than right. Etiology or significance indeterminate but does appear to be developed since prior study. Dictated by: Dictated on workstation # [id number]
== END ==
LOC: RAD 08:18
PROVIDERS: ATTEND Family Medicine
DX: R06.02 Shortness of breath (principal); R05 Cough
CPT/HCPCS: 71046

== ENCOUNTER → 2019-09-07 | Outpatient (RCR) | payer BC, OTHER ==
[~2019-09-07] MED LIST changes: -ARIP5TAB20 PO; +ARIP5TAB57 PO; +OMEP-280 PO; -OMEP20CA12 PO
== END | disposition home or self-care (01) ==
PROVIDERS: ATTEND Specialist
DX: M48.02 Spinal stenosis, cervical region (principal); G37.3 Acute transverse myelitis in demyelinating disease of central nervous system

== ENCOUNTER 2019-12-06 14:10 | Outpatient (RCR) | payer OTHER ==
[~2019-12-06 14:10] MED LIST changes: -OMEP-280 PO; +OMEP20CA18 PO; +ONDA-105 PO; -ONDA4TAB10 PO
== END 2019-12-07 | disposition home or self-care (01) ==
PROVIDERS: ATTEND Specialist
DX: M48.02 Spinal stenosis, cervical region (principal); G37.3 Acute transverse myelitis in demyelinating disease of central nervous system

== ENCOUNTER 2019-12-22 11:15 | Outpatient (RCR) | payer OTHER | END 2019-12-22 11:52 | disposition home or self-care (01) | PROVIDERS: ATTEND Specialist | DX: M48.02 Spinal stenosis, cervical region (principal); G37.3 Acute transverse myelitis in demyelinating disease of central nervous system ==

== ENCOUNTER 2020-01-26 15:24 | Outpatient (RCR) | payer BC ==
[2020-01-21 11:06] VITALS: BP 134/84
[2020-01-21 11:40] LABS: CHLORIDE 99 MMOL/L (98-107); POTASSIUM 3.7 MMOL/L (3.6-5.0); SODIUM 136 MMOL/L (135-145)
[2020-01-21 11:41] LABS: CALCIUM 8.6 MG/DL (8.5-10.1)
[2020-01-21 11:42] LABS: GLUCOSE 168 MG/DL (70-105)
[2020-01-21 11:43] LABS: CARBON DIOXIDE 27 MMOL/L (21-32)
[2020-01-21 11:45] LABS: CREATININE SERUM 0.67 MG/DL (0.60-1.30); GFR ESTIMATED > 60
[2020-01-21 11:46] LABS: BUN/CREATININE RATIO 10
[2020-01-21] MEDS: DAPTOmycin 500 MG/NS 50 ML IVPB IV SCH ×2 (12:06)
--- NOTE | 2020-01-21 12:49 | NUR ---
infusion complete, pt tolerated well. no complaints. Pt instructed to return tomorrow at the same time
[2020-01-22 10:13] VITALS: BP 134/84
[2020-01-22] MEDS: DAPTOmycin 500 MG/NS 50 ML IVPB IV SCH ×2 (10:13)
[2020-01-22 13:08] VITALS: BP 134/84
[2020-01-23] MEDS: DAPTOmycin 500 MG/NS 50 ML IVPB IV SCH ×2 (09:33)
[2020-01-23 10:10] VITALS: BP 159/98
[2020-01-24] MEDS: DAPTOmycin 500 MG/NS 50 ML IVPB IV SCH ×2 (09:40)
[2020-01-24 10:18] VITALS: BP 165/97
[2020-01-25] MEDS: DAPTOmycin 500 MG/NS 50 ML IVPB IV SCH ×2 (09:29)
[2020-01-25 10:05] VITALS: BP 137/87
[~2020-01-26] VITALS: Ht 170 cm; Wt 90.9 kg
[~2020-01-26 15:24] MED LIST changes: +MULT-567 PO; -MULT1TAB69 PO
[2020-01-26] MEDS: DAPTOmycin 500 MG/NS 50 ML IVPB IV SCH ×2 (15:56)
[2020-01-26 16:35] VITALS: BP 166/107
== END 2020-01-26 16:35 | disposition home or self-care (01) ==
LOC: SDC 15:24
PROVIDERS: ATTEND Orthopaedic Surgery
DX: T81.40XA Infection following a procedure, unspecified, initial encounter (principal)
CPT/HCPCS: 36415; 80048; 96365

== ENCOUNTER 2020-02-13 07:32 | Outpatient (RCR) | payer BC ==
[2020-01-27 09:40] VITALS: BP 143/87
[2020-01-27 09:59] LABS: BASOPHILS % (AUTO) 1 % (0-10); EOSINOPHILS # (AUTO) 0.2 10^3/uL (0.0-0.3); EOSINOPHILS % (AUTO) 2 % (0-10); HEMATOCRIT 34 % (35-52); HEMOGLOBIN 10.8 G/DL (11.5-16.0); LYMPHOCYTES % (AUTO) 14 % (12-44); MEAN CORPUSCULAR HEMOGLOBIN 28 PG (25-34); MEAN CORPUSCULAR HGB CONC 32 G/DL (32-36); MEAN CORPUSCULAR VOLUME 88 FL (80-99); MEAN PLATELET VOLUME 8.7 FL (7.4-10.4); MONOCYTES # (AUTO) 0.9 X 10^3 (0.0-1.0); MONOCYTES % (AUTO) 13 % (0-12); NEUTROPHILS % (AUTO) 70 % (42-75); PLATELET COUNT 290 10^3/uL (130-400); WHITE BLOOD COUNT 7.1 10^3/uL (4.3-11.0)
[2020-01-27] MEDS: DAPTOmycin 500 MG/NS 50 ML IVPB IV SCH ×2 (10:08)
[2020-01-27 10:18] LABS: ERYTHROCYTE SEDIMENTATION RATE 89 MM/HR (0-30)
[2020-01-27 10:19] LABS: ALANINE AMINOTRANSFERASE 22 U/L (0-55); ALBUMIN 3.7 GM/DL (3.2-4.5); ALKALINE PHOSPHATASE 88 U/L (40-136); BILIRUBIN,TOTAL 0.4 MG/DL (0.1-1.0); BUN/CREATININE RATIO 14; CALCIUM 9.1 MG/DL (8.5-10.1); CARBON DIOXIDE 25 MMOL/L (21-32); CHLORIDE 98 MMOL/L (98-107); CREATINE KINASE 39 U/L (29-168); CREATININE SERUM 0.72 MG/DL (0.60-1.30); GFR ESTIMATED > 60; GLUCOSE 189 MG/DL (70-105); POTASSIUM 3.9 MMOL/L (3.6-5.0); SODIUM 135 MMOL/L (135-145); TOTAL PROTEIN 7.5 GM/DL (6.4-8.2)
[2020-01-28 09:05] VITALS: BP 122/70
[2020-01-28] MEDS: DAPTOmycin 500 MG/NS 50 ML IVPB IV SCH ×2 (09:11)
[2020-01-29] MEDS: DAPTOmycin 500 MG/NS 50 ML IVPB IV SCH ×2 (09:13)
[2020-01-29 09:15] VITALS: BP 120/80
[2020-01-30] MEDS: DAPTOmycin 500 MG/NS 50 ML IVPB IV SCH ×2 (10:33)
[2020-01-30 11:12] VITALS: BP 151/84
[2020-01-31] MEDS: DAPTOmycin 500 MG/NS 50 ML IVPB IV SCH ×2 (10:13)
[2020-01-31 10:15] VITALS: BP 151/90
[2020-02-01 10:15] VITALS: BP 163/87
[2020-02-02] MEDS: DAPTOmycin 500 MG/NS 50 ML IVPB IV SCH ×2 (10:46)
[2020-02-02 11:27] VITALS: BP 176/89
[2020-02-03 10:02] VITALS: BP 143/89
[2020-02-03] MEDS: DAPTOmycin 500 MG/NS 50 ML IVPB IV SCH ×2 (10:34)
[2020-02-03 10:41] LABS: BASOPHILS % (AUTO) 1 % (0-10); EOSINOPHILS # (AUTO) 0.2 10^3/uL (0.0-0.3); EOSINOPHILS % (AUTO) 3 % (0-10); HEMATOCRIT 33 % (35-52); HEMOGLOBIN 10.4 G/DL (11.5-16.0); LYMPHOCYTES # (AUTO) 0.8 X 10^3 (1.0-4.0); LYMPHOCYTES % (AUTO) 13 % (12-44); MEAN CORPUSCULAR HEMOGLOBIN 27 PG (25-34); MEAN CORPUSCULAR HGB CONC 32 G/DL (32-36); MEAN CORPUSCULAR VOLUME 87 FL (80-99); MONOCYTES # (AUTO) 0.5 X 10^3 (0.0-1.0); MONOCYTES % (AUTO) 10 % (0-12); NEUTROPHILS # (AUTO) 4.2 X 10^3 (1.8-7.8); NEUTROPHILS % (AUTO) 73 % (42-75); PLATELET COUNT 261 10^3/uL (130-400); WHITE BLOOD COUNT 5.7 10^3/uL (4.3-11.0)
[2020-02-03 11:05] LABS: ALANINE AMINOTRANSFERASE 15 U/L (0-55); ALBUMIN 3.6 GM/DL (3.2-4.5); ALKALINE PHOSPHATASE 85 U/L (40-136); BILIRUBIN,TOTAL 0.3 MG/DL (0.1-1.0); BUN/CREATININE RATIO 14; CARBON DIOXIDE 27 MMOL/L (21-32); CHLORIDE 99 MMOL/L (98-107); CREATINE KINASE 28 U/L (29-168); CREATININE SERUM 0.66 MG/DL (0.60-1.30); GFR ESTIMATED > 60; GLUCOSE 162 MG/DL (70-105); POTASSIUM 4.2 MMOL/L (3.6-5.0); SODIUM 135 MMOL/L (135-145); TOTAL PROTEIN 7.2 GM/DL (6.4-8.2)
[2020-02-03 11:16] LABS: ERYTHROCYTE SEDIMENTATION RATE 73 MM/HR (0-30)
--- NOTE | 2020-02-03 15:16 | Diagnostic Imaging Report ---
PATIENT HISTORY: POST PICC PLACEMENT. TECHNIQUE: Single frontal view of the chest. COMPARISON: 12/14/2018. FINDINGS: The lung volumes are normal. No focal consolidation is seen. No large pleural effusion or pneumothorax is seen. The cardiomediastinal silhouette is normal in size and contour. No acute osseous abnormality is seen. The left PICC line tip projects over the mid SVC. IMPRESSION: The left PICC line projects over the SVC. Dictated by: Dictated on workstation # [id number]
[2020-02-04] MEDS: DAPTOmycin 500 MG/NS 50 ML IVPB IV SCH ×2 (09:06)
[2020-02-04 09:38] VITALS: BP 150/78
[2020-02-05] MEDS: DAPTOmycin 500 MG/NS 50 ML IVPB IV SCH ×2 (09:20)
[2020-02-05 09:55] VITALS: BP 103/80
[2020-02-06] MEDS: DAPTOmycin 500 MG/NS 50 ML IVPB IV SCH ×2 (09:11)
--- NOTE | 2020-02-06 09:45 | NUR ---
PT. STATED THAT THEY HAVEN'T BEEN ABLE TO GET BLOOD BACK FROM PICC LINE ALL WEEKEND. THIS NURSE ASSESSED & DIDN'T GET BLOOD BACK FROM PICC LINE, PICC DRESSING TAKEN OFF, PICC LINE ASSESSED & DRAWN BACK 2 CM, BLOOD RETURN NOTED AT THIS TIME. NEW PICC LINE DRESSING DONE AT THIS TIME. CHEST X RAY DONE AT THIS TIME.
[2020-02-06 10:00] VITALS: BP 140/75
--- NOTE | 2020-02-06 10:30 | Diagnostic Imaging Report ---
INDICATION: PICC line reposition. TIME OF EXAM: 10:16 AM. COMPARISON: 02/03/2020. FINDINGS: A left upper extremity PICC line is again noted. The tip is somewhat difficult to visualize but appears at least to be in the left innominate vein. The lungs are clear. The pulmonary vascularity is normal. There is no infiltrate. No effusion or pneumothorax. Postop changes in the lower cervical spine are noted. IMPRESSION: The PICC line has been pulled back somewhat and appears to have the tip in the left innominate vein. Dictated by: Dictated on workstation # [id number]
--- NOTE | 2020-02-07 09:30 | Diagnostic Imaging Report ---
Indication: PICC line placement Portable chest 9:23 AM Left upper extremity PICC line tip is at the innominate confluence. Heart size and pulmonary vascularity are normal. Lungs are clear. There are no effusions or pneumothoraces. IMPRESSION: PICC line tip is at the innominate confluence Dictated by: Dictated on workstation # [id number]
[2020-02-07] MEDS: DAPTOmycin 500 MG/NS 50 ML IVPB IV SCH ×2 (09:50)
[2020-02-07 10:23] VITALS: BP 150/80
[2020-02-08] MEDS: DAPTOmycin 500 MG/NS 50 ML IVPB IV SCH ×2 (09:13)
[2020-02-08 09:15] VITALS: BP 138/71
[2020-02-09] MEDS: DAPTOmycin 500 MG/NS 50 ML IVPB IV SCH ×2 (08:33)
[2020-02-09 09:10] VITALS: BP 134/73
[2020-02-10] MEDS: DAPTOmycin 500 MG/NS 50 ML IVPB IV SCH ×2 (09:24)
[2020-02-10 09:25] LABS: BASOPHILS % (AUTO) 0 % (0-10); EOSINOPHILS # (AUTO) 0.2 10^3/uL (0.0-0.3); EOSINOPHILS % (AUTO) 3 % (0-10); HEMATOCRIT 33 % (35-52); HEMOGLOBIN 10.5 G/DL (11.5-16.0); LYMPHOCYTES # (AUTO) 0.6 X 10^3 (1.0-4.0); LYMPHOCYTES % (AUTO) 11 % (12-44); MEAN CORPUSCULAR HEMOGLOBIN 28 PG (25-34); MEAN CORPUSCULAR HGB CONC 32 G/DL (32-36); MEAN CORPUSCULAR VOLUME 88 FL (80-99); MONOCYTES # (AUTO) 0.5 X 10^3 (0.0-1.0); MONOCYTES % (AUTO) 9 % (0-12); NEUTROPHILS # (AUTO) 4.2 X 10^3 (1.8-7.8); NEUTROPHILS % (AUTO) 76 % (42-75); PLATELET COUNT 183 10^3/uL (130-400); WHITE BLOOD COUNT 5.5 10^3/uL (4.3-11.0)
[2020-02-10 09:34] LABS: ALBUMIN 3.6 GM/DL (3.2-4.5)
[2020-02-10 09:35] LABS: CHLORIDE 99 MMOL/L (98-107); POTASSIUM 4.6 MMOL/L (3.6-5.0); SODIUM 135 MMOL/L (135-145)
[2020-02-10 09:36] LABS: CALCIUM 8.6 MG/DL (8.5-10.1)
[2020-02-10 09:37] LABS: GLUCOSE 207 MG/DL (70-105)
[2020-02-10 09:38] LABS: CARBON DIOXIDE 25 MMOL/L (21-32)
[2020-02-10 09:39] LABS: BILIRUBIN,TOTAL 0.4 MG/DL (0.1-1.0)
[2020-02-10 09:41] LABS: ALKALINE PHOSPHATASE 82 U/L (40-136); CREATININE SERUM 0.72 MG/DL (0.60-1.30); GFR ESTIMATED > 60
[2020-02-10 09:42] LABS: BUN/CREATININE RATIO 15
[2020-02-10 09:44] LABS: ALANINE AMINOTRANSFERASE 10 U/L (0-55); CREATINE KINASE 23 U/L (29-168)
[2020-02-10 09:53] VITALS: BP 123/63
[2020-02-10 10:00] LABS: ERYTHROCYTE SEDIMENTATION RATE 87 MM/HR (0-30)
[2020-02-11] MEDS: DAPTOmycin 500 MG/NS 50 ML IVPB IV SCH ×2 (09:08)
[2020-02-11 09:28] VITALS: BP 98/53
[2020-02-12] MEDS: DAPTOmycin 500 MG/NS 50 ML IVPB IV SCH ×2 (09:07)
[2020-02-12 09:27] VITALS: BP 112/52
[~2020-02-13] VITALS: Ht 175.3 cm; Wt 90.9 kg
[2020-02-13 07:30] VITALS: BP 0/0
--- NOTE | 2020-02-13 07:30 | NUR ---
ARRIVES PER W/C WITH FOR DAPTOMYCIN. APPEARS UNWELL, PALE, EYES REDDENED, CRYING. STATES SHE "FEELS AWFUL" WITH C/O INTERMITTENT FEVER, ABDOMINAL AND BACK PAIN, NAUSEA. STATES SHE GOT OUT OF BED THIS AM AND FELL, HITTING HER HEAD. DISCUSSED WITH PT NEED FOR HER TO BE EVALUATED BY HER PRIMARY CARE DOCTOR, OR AT THE EMERGENCY DEPT OR LOCAL URGENT CARE. STATES SHE WOULD LIKE TO BE SEEN AT [facility]. TAKEN BY WC, ACCOMPANIED BY .
[~2020-02-13 07:32] MED LIST changes: +DAPTOmycin 500 MG/NS 50 ML IVPB IV SCH; -ENAL10TA PO; +ENAL10TA16 PO; -ENAL20TA PO; +ENAL20TA16 PO; -NADO40TA PO; +NADO40TA2 PO; -OXYC-465 PO; +OXYC-556 PO
[2020-02-13] MEDS ORDERED: CEFD300C3 PO (13:13)
--- NOTE | 2020-02-13 13:17 | NUR ---
PT STILL IN ER FOR EVALUATION AND TREATMENT. IS RECEIVING SCHEDULED DAPTOMYCIN 500 MG IV TODAY IN ER.
[2020-02-14] MEDS ORDERED: BACL10TA PO (12:39)
[2020-02-14] MEDS ORDERED: ENAL20TA16 PO (12:39)
[2020-02-14] MEDS ORDERED: GABA300C PO (12:39)
[2020-02-14] MEDS ORDERED: OMEP40CA27 PO (12:39)
[2020-02-14] MEDS ORDERED: ROSU5TAB13 PO (12:39)
[2020-02-14] MEDS ORDERED: TEMA30CA PO (12:39)
[2020-02-14] MEDS ORDERED: CELE-63 PO (12:39)
[2020-02-14] MEDS ORDERED: ARIP5TAB57 PO (12:42)
[2020-02-14] MEDS ORDERED: METF-397 PO (12:42)
[2020-02-14] MEDS ORDERED: ALOG25TA2 PO (12:42)
[2020-02-14] MEDS ORDERED: BUPR150T14 PO (12:44)
[2020-02-14] MEDS ORDERED: RIFA300C3 PO (15:02)
[2020-02-15] MEDS ORDERED: CEPH500T PO (13:15)
== END 2020-04-25 | disposition home or self-care (01) ==
LOC: SDC 07:32
PROVIDERS: ATTEND Internal Medicine Infectious Disease
DX: T84.53XA Infection and inflammatory reaction due to internal right knee prosthesis, initial encounter (principal); Z79.2 Long term (current) use of antibiotics
CPT/HCPCS: 36415; 36569; 71045; 76937; 80053; 82550; 85025; 85652; 86141; 96365; 99211

== ENCOUNTER 2020-02-13 07:44 | Emergency (ER) | payer BC, OTHER ==
[~2020-02-13] VITALS: Ht 170 cm; Wt 90.9 kg
[~2020-02-13 07:44] MED LIST changes: -DAPTOmycin 500 MG/NS 50 ML IVPB IV SCH; +ENAL10TA PO; -ENAL10TA16 PO; +ENAL20TA PO; -ENAL20TA16 PO; +NADO40TA PO; -NADO40TA2 PO; +OXYC-465 PO; -OXYC-556 PO
[2020-02-13] MEDS ORDERED: KETOROLAC 30 MG/ML VIAL IVP STA (08:01)
[2020-02-13] MEDS ORDERED: fentaNYL INJECTION 100 MCG/2 ML AMP IVP STA (08:01)
[2020-02-13] MEDS ORDERED: LACTATED RINGERS 1,000 ML IV STA (08:01)
[2020-02-13] MEDS ORDERED: ACETAMINOPHEN 500 MG TAB (TYLENOL) PO PRN (08:15)
[2020-02-13] MEDS ORDERED: ONDANSETRON 4 MG/2 ML (SDV) Z0FRAN IVP ONE (08:15)
--- NOTE | 2020-02-13 08:17 | ED Back Pain ---
General Chief Complaint: Back Problems Stated Complaint: BACK PAIN Source of Information: Patient Exam Limitations: No Limitations History of Present Illness Date Seen by Provider: Feb 13, 2020 Time Seen by Provider: 07:52 Initial Comments Here with fevers, chills, body aches, nausea and no vomiting with history of right knee postop infection and currently on daptomycin IV. Patient does have PICC line placed. No history of cold exposure and has had negative COVID testing previously but that was in December for the preop. States overall she does not feel well. Denies sore throat or runny nose. Denies cough or shortness of breath. Her main complaint is low back pain and bilateral and this is new. Does report she fell out of bed this morning which made the pain worse and she also hit her head. No loss of consciousness. Location: Paraspinous Muscles Timing/Duration: 1-2 Days Severity: Moderate Pain/Injury Location: Back Radiation: Other (none) Method of Injury: Unknown Modifying Factors: Improves With Immobilization; Worse With Movement Associated Symptoms: muscle spasms, fever, weakness (globally); No numbness in legs/feet, No tingling in legs/feet; lower back pain; No loss of bladder control, No loss of bowel control Allergies and Home Medications Allergies Coded Allergies: No Known Drug Allergies (Unverified , 07/02/17) Home Medications Amlodipine Besylate 10 Mg Tablet, 10 MG PO HS, (Reported) Bupropion HCl 150 Mg Tablet.er, 225 MG PO HS, (Reported) TAKES 1 & 1/2 (150MG) TABLET Bupropion HCl 150 Mg Tablet.er, 150 MG PO DAILY, (Reported) Cefdinir 300 Mg Capsule, 300 MG PO BID Prescribed by: SHIVA HARMON on 02/13/20 1313 Enalapril Maleate 10 Mg Tablet, 10 MG PO BID, (Reported) Estradiol 2 Mg Tablet, 2 MG PO DAILY, (Reported) Fesoterodine Fumarate 4 Mg Tab.sr.24h, 4 MG PO DAILY, (Reported) Gabapentin 300 Mg Capsule, 300 MG PO 0400, (Reported) Gabapentin 300 Mg Capsule, 600 MG PO HS, (Reported) TAKES 2 (300MG) CAPSULES Glyburide 5 Mg Tablet, 10 MG PO BID, (Reported) TAKES 2 (5MG) TABLETS Metformin HCl 1,000 Mg Tablet, 1,000 MG PO BID WITH MEALS, (Reported) Multivitamin 1 Each Tablet, 1 TAB PO DAILY, (Reported) Nadolol 40 Mg Tablet, 40 MG PO HS, (Reported) Oxycodone HCl/Acetaminophen 1 Each Tablet, 1 TAB PO Q4H Prescribed by: KESHAWN CHRISTINA on 09/08/18 0736 Scopolamine 1 Each Patch.td72, 1 PATCH TD FOR SURGERY DAY, (Reported) Sitagliptin Phosphate 100 Mg Tablet, 100 MG PO DAILY, (Reported) Temazepam 15 Mg Capsule, 15-30 MG PO HS, (Reported) Patient Home Medication List Home Medication List Reviewed: Yes Review of Systems Constitutional: see HPI EENTM: no symptoms reported Respiratory: No cough, No short of breath Cardiovascular: no symptoms reported Gastrointestinal: No abdominal pain; nausea; No vomiting Genitourinary: no symptoms reported Musculoskeletal: back pain, muscle pain Skin: no symptoms reported Psychiatric/Neurological: See HPI All Other Systems Reviewed Negative Unless Noted: Yes Past Ihjlmih-Zfaszc-Momluv Hx Past Med/Social Hx: Reviewed Nursing Past Med/Soc Hx Patient Social History Alcohol Use: Denies Use Recreational Drug Use: No Smoking Status: Former Smoker Type Used: Cigarettes Former Smoker, Quit: Jul 02, 1990 Recent Foreign Travel: No Contact w/Someone Who Travel: No Recent Hopitalizations: No Immunizations Up To Date Tetanus Booster (TDap): Unknown PED Vaccines UTD: No Date of Pneumonia Vaccine: Sep 08, 2017 Date of Influenza Vaccine: May 08, 2017 Seasonal Allergies Seasonal Allergies: No Past Medical History Surgeries: Yes (R hip replaced, L foot bunion, bladder sling, L knee scope x2) Bladder Surgery, Hysterectomy, Joint Replacement, Oophorectomy, Orthopedic, Rectal Respiratory: No Currently Using CPAP: No Currently Using BIPAP: No Cardiac: Yes High Cholesterol, Hypertension Neurological: Yes (spinal lesion in neck) 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 Disorders: Yes (RECTOCELE, CYSTOCELE) Female 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 Disorders: Denies 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: Hysterectomy, Menopausal Sexually Transmitted Disease: No HIV/AIDS: No Genitourinary: No (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-bladder issues still) Gastrointestinal: Yes Gastroesophageal Reflux Musculoskeletal: Yes (RIGHT HIP REPLACEMENT, had spinal lesion 01/2018) Arthritis Endocrine: Yes Diabetes, Non-Insulin dep HEENT: No Loss of Vision: Denies Hearing Impairment: Denies Cancer: No Psychosocial: Yes Anxiety, Depression Integumentary: No Blood Disorders: No Adverse Reaction/Blood Tranf: No (N/A) Family Medical History Reviewed Nursing Family Hx Alcoholism Cardiovascular disease Psychosocial problem Physical Exam Vital Signs Vital Signs - First Documented 02/13/20 07:50 Temp 38.0 Pulse 105 Resp 22 B/P (MAP) 133/65 (87) O2 Delivery Room Air Capillary Refill : Height, Weight, BMI Height: 5'7.00" Weight: 203lbs. 0.1oz. [age]yo; 31.59 BMI Method:Estimated General Appearance: No Apparent Distress, WD/WN Neck: Non Tender, Supple Cardiovascular: No Murmur, Tachycardia Respiratory: Lungs Clear, Normal Breath Sounds Gastrointestinal: Non Tender, Soft Back: Muscle Spasm; No Vertebral Tenderness; Other (pain bilateral lower back on palpation in the lateral aspects. Nontender over spine.) Extremity: Other (pain to both legs with right greater than left and states that she has muscle pain. Mild right knee pain postop) Neurologic/Psychiatric: Alert, Oriented x3 Skin: Normal Color, Warm/Dry Progress/Results/Core Measures Results/Orders Lab Results Laboratory Tests Test 02/13/20 08:30 02/13/20 09:30 Range/Units White Blood Count 4.7 4.3-11.0 10^3/uL Red Blood Count 3.80 L 4.35-5.85 10^6/uL Hemoglobin 10.5 L 11.5-16.0 G/DL Hematocrit 32 L 35-52 % Mean Corpuscular Volume 83 80-99 FL Mean Corpuscular Hemoglobin 28 25-34 PG Mean Corpuscular Hemoglobin Concent 33 32-36 G/DL Red Cell Distribution Width 15.3 H 10.0-14.5 % Platelet Count 170 130-400 10^3/uL Mean Platelet Volume 9.1 7.4-10.4 FL Neutrophils (%) (Auto) 73 42-75 % Lymphocytes (%) (Auto) 12 12-44 % Monocytes (%) (Auto) 11 0-12 % Eosinophils (%) (Auto) 3 0-10 % Basophils (%) (Auto) 1 0-10 % Neutrophils # (Auto) 3.4 1.8-7.8 X 10^3 Lymphocytes # (Auto) 0.6 L 1.0-4.0 X 10^3 Monocytes # (Auto) 0.5 0.0-1.0 X 10^3 Eosinophils # (Auto) 0.1 0.0-0.3 10^3/uL Basophils # (Auto) 0.0 0.0-0.1 10^3/uL Erythrocyte Sedimentation Rate 88 H 0-30 MM/HR Prothrombin Time 14.8 H 12.2-14.7 SEC INR Comment 1.1 0.8-1.4 Activated Partial Thromboplast Time 35 24-35 SEC D-Dimer 4.14 H 0.00-0.49 UG/ML Sodium Level 129 L 135-145 MMOL/L Potassium Level 4.1 3.6-5.0 MMOL/L Chloride Level 94 L 98-107 MMOL/L Carbon Dioxide Level 22 21-32 MMOL/L Anion Gap 13 5-14 MMOL/L Blood Urea Nitrogen 12 7-18 MG/DL Creatinine 0.74 0.60-1.30 MG/DL Estimat Glomerular Filtration Rate > 60 BUN/Creatinine Ratio 16 Glucose Level 127 H 70-105 MG/DL Lactic Acid Level 1.17 0.50-2.00 MMOL/L Calcium Level 8.4 L 8.5-10.1 MG/DL Corrected Calcium 8.7 8.5-10.1 MG/DL Total Bilirubin 0.3 0.1-1.0 MG/DL Aspartate Amino Transf (AST/SGOT) 23 5-34 U/L Alanine Aminotransferase (ALT/SGPT) 14 0-55 U/L Alkaline Phosphatase 88 40-136 U/L Lactate Dehydrogenase 226 H 125-220 U/L C-Reactive Protein High Sensitivity 10.36 H 0.00-0.50 MG/DL Total Protein 7.3 6.4-8.2 GM/DL Albumin 3.6 3.2-4.5 GM/DL Procalcitonin 0.29 H <0.10 NG/ML Urine Color YELLOW Urine Clarity SL CLOUDY Urine pH 6.5 5-9 Urine Specific Schwertner 1.020 1.016-1.022 Urine Protein 1+ H NEGATIVE Urine Glucose (UA) NEGATIVE NEGATIVE Urine Ketones TRACE H NEGATIVE Urine Nitrite POSITIVE H NEGATIVE Urine Bilirubin 1+ H NEGATIVE Urine Urobilinogen 1.0 < = 1.0 MG/DL Urine Leukocyte Esterase 3+ H NEGATIVE Urine RBC (Auto) TRACE-I NEGATIVE Urine RBC RARE /HPF Urine WBC TNTC H /HPF Urine Squamous Epithelial Cells 2-5 /HPF Urine Crystals NONE /LPF Urine Bacteria LARGE H /HPF Urine Casts NONE /LPF Urine Mucus NEGATIVE /LPF Urine Culture Indicated YES My Orders Orders - SHIVA HARMON MD Cbc With Automated Diff (02/13/20 08:01) Comprehensive Metabolic Panel (02/13/20 08:01) Blood Culture (02/13/20 08:01) Sputum Culture (02/13/20 08:01) Urinalysis (02/13/20 08:01) Urine Culture (02/13/20 08:01) Protime With Inr (02/13/20 08:01) Partial Thromboplastin Time (02/13/20 08:01) Chest 1 View, Ap/Pa Only (02/13/20 08:01) Acetaminophen Tablet (Tylenol Tablet) (02/13/20 08:15) Ed Iv/Invasive Line Start (02/13/20 08:01) Ed Iv/Invasive Line Start (02/13/20 08:01) Vital Signs Adult Sepsis Patie Q15M (02/13/20 08:01) O2 (02/13/20 08:01) Remove Rings In Anticipation O (02/13/20 08:01) Lactic Acid Analyzer (02/13/20 08:01) Fibrin Degradation Products (02/13/20 08:01) Procalcitonin (Pct) (02/13/20 08:01) Hs C Reactive Protein (02/13/20 08:01) Erythrocyte Sedimentation Rate (02/13/20 08:01) LDH (02/13/20 08:01) Coronavirus Sars-Cov-2 So 2018 (02/13/20 08:01) Ondansetron Injection (Zofran Injectio (02/13/20 08:15) Lactated Ringers (Lr 1000 Ml Iv Solution (02/13/20 08:01) Fentanyl Injection (Sublimaze Injection (02/13/20 08:01) Ketorolac Injection (Toradol Injection) (02/13/20 08:01) Ct Angio Chest W (02/13/20 09:33) Ct Head Wo (02/13/20 09:33) Iohexol Injection (Omnipaque 350 Mg/Ml 1 (02/13/20 09:45) Received Contrast (Hold Metformin- Contr (02/13/20 09:45) Sodium Chloride Flush (Catheter Flush Sy (02/13/20 09:45) General/Regular (02/13/20 Breakfast) Ceftriaxone For Iv Use (Rocephin For I (02/13/20 11:15) Us Venous Lower Ext Rt (02/13/20 11:42) Daptomycin Injection (Cubicin Injection) (02/14/20 09:00) Medications Given in ED Current Medications Medications Dose Ordered Sig/Jhonatan Route Start Time Stop Time Status Last Admin Dose Admin Acetaminophen 1,000 mg ONCE PRN PO 02/13/20 08:15 02/13/20 08:31 DC 02/13/20 08:29 1,000 MG Iohexol 75 ml ONCE ONCE IV 02/13/20 09:45 02/13/20 09:46 DC 02/13/20 11:01 75 ML Ondansetron HCl 4 mg ONCE ONCE IVP 02/13/20 08:15 02/13/20 08:16 DC 02/13/20 08:30 4 MG Vital Signs/I&O 02/13/20 02/13/20 02/13/20 07:50 08:30 08:30 Temp 38.0 38.0 38.0 Pulse 105 Resp 22 B/P (MAP) 133/65 (87) O2 Delivery Room Air Progress Progress Note : Progress Note Seen and evaluated. IV, labs, blood cultures and lactic acid ordered. COVID-19 screen initiated. LR 1 L bolus, Zofran 4 mg IV, Toradol 30 mg IV, Tylenol 1 g by mouth and fentanyl 50 g IV ordered. Patient is complicated in that she has a known infection and is currently on daptomycin for that. That should be covering. She does present with fever which may be related to infection and antibiotic failure versus other infection including the possibility of COVID-19. We will evaluate all. Monitor patient. 1309: Patient ultimately had CT chest ordered due to with elevated d-dimer. This did not show PE or other significant findings. Ultrasound right lower extremity ordered due to concerns for DVT due to elevated d-dimer and this was also negative. We still have concerns for COVID-19 infection and she does have a urinary tract infection. I think the patient would benefit from hospitalization but she has declined. We were ultimately able to get a dose of daptomycin that she needs as well as give her 1 g of Rocephin IV. We will attempt outpatient therapy for the urinary tract infection with the understanding that she will return if there is any worsening. Patient will need to continue to get her daptomycin therapy outpatient for the knee infection. We did discuss this with the outpatient clinic. Patient will call prior to leaving home and they will have her therapy ready while she is under investigation for COVID-19. Discharged home with return precautions. Patient verbalize understanding instructions and agreement with plan. Patient was offered admission multiple times and she declined. Diagnostic Imaging Diagonstic Imaging: Xray Plain Films/CT/US/NM/MRI: chest Comments [facility]. [place], [place] NAME: TYRA BROWNING [facility] REC#: [id number] PT STATUS: REG ER : 1955 PHYSICIAN: SHIVA HARMON MD ADMIT DATE: 02/13/20/ER Draft Date of Exam:02/13/20 CHEST 1 VIEW, AP/PA ONLY Indication: Fever. Exam compared 02/07/2020. No focal consolidation or pneumonia. No failure, effusion or pneumothorax. A left PICC catheter has its distal tip at the midline of the upper T-spine unchanged. Impression: No acute-appearing abnormality. Dictated on workstation # [id number] Dict: 02/13/20 0857 Trans: 02/13/20 0900 CV [id number] Interpreted by: RAMO CARLOS Electronically signed by: Diagonstic Imaging: CT Plain Films/CT/US/NM/MRI: chest Comments [facility]. [place], [place] NAME: TYRA BROWNING [facility] REC#: [id number] PT STATUS: REG ER : 1955 PHYSICIAN: SHIVA HARMON MD ADMIT DATE: 02/13/20/ER Draft Date of Exam:02/13/20 CT ANGIO CHEST W PROCEDURE: CT angiography of the chest with contrast. TECHNIQUE: Multiple contiguous axial images were obtained through the chest after uneventful bolus administration of intravenous contrast. 3D reconstructed CTA MIP acquisitions were also performed. Auto Exposure Controls were utilized during the CT exam to meet ALARA standards for radiation dose reduction. INDICATION: Fall from bed striking head. Infection. Shortness of breath. FINDINGS: There are no intraluminal pulmonary arterial filling defects. There is no pulmonary arterial embolus identified. The thoracic aorta is patent and nonacute. There is benign calcified granulomatous lymph node residua as well as some benign pulmonary parenchymal calcified granulomata. No noncalcified or suspicious chest mass. No effusion or pneumothorax. There is some subsegmental bibasilar partial atelectasis but no consolidating pneumonia. IMPRESSION: Negative for PE or acute aortic disease. Benign granulomatous residua with mild dependent basilar partial atelectasis. Dictated on workstation # [id number] Dict: 02/13/20 1124 Trans: 02/13/20 1131 MESSI [id number] Interpreted by: RAMO CARLOS Electronically signed by: Corigonstic Imaging: CT Plain Films/CT/US/NM/MRI: head Comments [facility] [place], [place] NAME: TYRA BROWNING [facility] REC#: [id number] PT STATUS: REG ER : 1955 PHYSICIAN: SHIVA HARMON MD ADMIT DATE: 02/13/20/ER Draft Date of Exam:02/13/20 CT ANGIO CHEST W PROCEDURE: CT angiography of the chest with contrast. TECHNIQUE: Multiple contiguous axial images were obtained through the chest after uneventful bolus administration of intravenous contrast. 3D reconstructed CTA MIP acquisitions were also performed. Auto Exposure Controls were utilized during the CT exam to meet ALARA standards for radiation dose reduction. INDICATION: Fall from bed striking head. Infection. Shortness of breath. FINDINGS: There are no intraluminal pulmonary arterial filling defects. There is no pulmonary arterial embolus identified. The thoracic aorta is patent and nonacute. There is benign calcified granulomatous lymph node residua as well as some benign pulmonary parenchymal calcified granulomata. No noncalcified or suspicious chest mass. No effusion or pneumothorax. There is some subsegmental bibasilar partial atelectasis but no consolidating pneumonia. IMPRESSION: Negative for PE or acute aortic disease. Benign granulomatous residua with mild dependent basilar partial atelectasis. Dictated on workstation # [id number] Dict: 02/13/20 1124 Trans: 02/13/20 1131 MESSI [id number] Interpreted by: RAMO CARLOS Electronically signed by: Chau Imaging: Ultrasound Plain Films/CT/US/NM/MRI: leg Comments [facility]. [place], [place] NAME: TYRA BROWNING [facility] REC#: [id number] PT STATUS: REG ER : 1955 PHYSICIAN: SHIVA HARMON MD ADMIT DATE: 02/13/20/ER Draft Date of Exam:02/13/20 US VENOUS LOWER EXT RT PROCEDURE: US right lower extremity venous. TECHNIQUE: Multiple real-time grayscale images were obtained over the right lower extremity in various projections. Additional spectral analysis and color Doppler duplex images were also obtained. INDICATION: Elevated D-dimer and right knee replacement surgery. There is no evidence of right lower extremity DVT. Right lower extremity deep venous system shows normal compressibility with normal response to augmentation and Valsalva. No fluid collection or mass is detected. IMPRESSION: No evidence of right lower extremity DVT. Dictated on workstation # [id number] Dict: 02/13/20 1311 Trans: 02/13/20 1313 CVB [id number] Interpreted by: DONNA FREEMAN MD Electronically signed by: Departure Impression Primary Impression: Urinary tract infection Qualified Codes: N30.00 - Acute cystitis without hematuria Additional Impressions: COVID-19 evaluation Right knee skin infection Disposition: 01 HOME, SELF-CARE Condition: Stable Departure-Patient Inst. Decision time for Depature: 13:12 Referrals: AARON PRUITT MD (PCP/Family) Primary Care Physician Patient Instructions: Coronavirus Disease 2019 (COVID-19) (DC), Urinary Tract Infections in Adults Add. Discharge Instructions: All discharge instructions reviewed with patient and/or family. Voiced understanding. Drink plenty of fluids and get plenty of rest. You will need to remain on quarantine until test results are noted. If they are negative, you will need to be isolated for 3 days after symptoms resolve. If they are positive, the health department will call you and direct quarantine timeframe. You may take ibuprofen 600 mg every 8 hours as needed for fever or pain. You may take Tylenol/acetaminophen 1000 mg every 8 hours as needed for fever.. U also have urinary tract infection. Take antibiotics as directed. 4 your daily antibiotic dosing, you need to call [phone] at around 3 PM before leaving your house and they will give you instructions as far as your daily dosing of daptomycin. You will continue to do this until your results are noted for your COVID-19 swab, which should be in 2-3 days. Return for worse pain, fever, vomiting, weakness, breathing problems or other concerns as needed. Scripts Cefdinir (Cefdinir) 300 Mg Capsule 300 MG PO BID, #14 CAP 0 Refills Prov: SHIVA HARMON MD 02/13/20 SHIVA HARMON MD Feb 13, 2020 08:16
[2020-02-13 08:43] LABS: BASOPHILS % (AUTO) 1 % (0-10); EOSINOPHILS # (AUTO) 0.1 10^3/uL (0.0-0.3); EOSINOPHILS % (AUTO) 3 % (0-10); HEMATOCRIT 32 % (35-52); HEMOGLOBIN 10.5 G/DL (11.5-16.0); LYMPHOCYTES # (AUTO) 0.6 X 10^3 (1.0-4.0); LYMPHOCYTES % (AUTO) 12 % (12-44); MEAN CORPUSCULAR HEMOGLOBIN 28 PG (25-34); MEAN CORPUSCULAR HGB CONC 33 G/DL (32-36); MEAN CORPUSCULAR VOLUME 83 FL (80-99); MEAN PLATELET VOLUME 9.1 FL (7.4-10.4); MONOCYTES # (AUTO) 0.5 X 10^3 (0.0-1.0); MONOCYTES % (AUTO) 11 % (0-12); NEUTROPHILS # (AUTO) 3.4 X 10^3 (1.8-7.8); NEUTROPHILS % (AUTO) 73 % (42-75); PLATELET COUNT 170 10^3/uL (130-400); RED CELL DISTRIBUTION WIDTH 15.3 % (10.0-14.5); WHITE BLOOD COUNT 4.7 10^3/uL (4.3-11.0)
[2020-02-13 08:53] LABS: ALBUMIN 3.6 GM/DL (3.2-4.5)
[2020-02-13 08:54] LABS: CHLORIDE 94 MMOL/L (98-107); POTASSIUM 4.1 MMOL/L (3.6-5.0); SODIUM 129 MMOL/L (135-145)
[2020-02-13 08:55] LABS: CALCIUM 8.4 MG/DL (8.5-10.1)
[2020-02-13 08:56] LABS: GLUCOSE 127 MG/DL (70-105); TOTAL PROTEIN 7.3 GM/DL (6.4-8.2)
[2020-02-13 08:57] LABS: CARBON DIOXIDE 22 MMOL/L (21-32)
[2020-02-13 08:58] LABS: BILIRUBIN,TOTAL 0.3 MG/DL (0.1-1.0)
[2020-02-13 08:59] LABS: ALKALINE PHOSPHATASE 88 U/L (40-136)
[2020-02-13 09:00] LABS: CREATININE SERUM 0.74 MG/DL (0.60-1.30); GFR ESTIMATED > 60
--- NOTE | 2020-02-13 09:00 | Diagnostic Imaging Report ---
Indication: Fever. Exam compared 02/07/2020. No focal consolidation or pneumonia. No failure, effusion or pneumothorax. A left PICC catheter has its distal tip at the midline of the upper T-spine unchanged. Impression: No acute-appearing abnormality. Dictated by: Dictated on workstation # [id number]
[2020-02-13 09:01] LABS: BUN/CREATININE RATIO 16
[2020-02-13 09:02] LABS: ALANINE AMINOTRANSFERASE 14 U/L (0-55)
[2020-02-13 09:06] LABS: FIBRIN DEGRADATION PRODUCTS 4.14 UG/ML (0.00-0.49); INR 1.1 (0.8-1.4); PROTHROMBIN TIME PATIENT 14.8 SEC (12.2-14.7)
[2020-02-13 09:07] LABS: ERYTHROCYTE SEDIMENTATION RATE 88 MM/HR (0-30)
[2020-02-13 09:35] LABS: CLARITY,URINE SL CLOUDY; COLOR,URINE YELLOW; GLUCOSE, URINE (UA) NEGATIVE (NEGATIVE); KETONES,URINE TRACE (NEGATIVE); LEUKOCYTE ESTERASE ,URINE 3+ (NEGATIVE); NITRITE,URINE POSITIVE (NEGATIVE); PH,URINE 6.5 (5-9); PROTEIN,URINE 1+ (NEGATIVE)
[2020-02-13 09:45] LABS: BACTERIA,URINE LARGE /HPF; BILIRUBIN,URINE 1+ (NEGATIVE); RBC,URINE RARE /HPF; WBC,URINE TNTC /HPF
[2020-02-13] MEDS ORDERED: IOHEXOL 350 MG/ML 100 ML (OMNIPAQUE 350) VIAL IV ONE (09:45)
[2020-02-13] MEDS ORDERED: CATHETER FLUSH 10 ML SYR IV PRN (09:45)
[2020-02-13] MEDS ORDERED: HOLD METFORMIN - RECEIVED CONTRAST 20 ML VIAL IV SCH (09:45)
[2020-02-13] MEDS ORDERED: cefTRIAXone FOR IV USE 1,000 MG in WATER (STERILE) FOR INJECTION 10 ML IV STA (11:15)
--- NOTE | 2020-02-13 11:26 | Diagnostic Imaging Report ---
PROCEDURE: CT head without contrast. TECHNIQUE: Multiple contiguous axial images were obtained through the brain without the use of intravenous contrast. Auto Exposure Controls were utilized during the CT exam to meet ALARA standards for radiation dose reduction. INDICATION: Head injury. COMPARISON: 02/10/2018. FINDINGS: No intracranial hemorrhage, mass effect, hydrocephalus or extra-axial fluid collections. No CT evidence of a territorial infarction. Osseous structures are intact. The visualized paranasal sinuses and mastoids are clear. IMPRESSION: No acute intracranial CT findings. Dictated by: Dictated on workstation # [id number]
--- NOTE | 2020-02-13 11:31 | Diagnostic Imaging Report ---
PROCEDURE: CT angiography of the chest with contrast. TECHNIQUE: Multiple contiguous axial images were obtained through the chest after uneventful bolus administration of intravenous contrast. 3D reconstructed CTA MIP acquisitions were also performed. Auto Exposure Controls were utilized during the CT exam to meet ALARA standards for radiation dose reduction. INDICATION: Fall from bed striking head. Infection. Shortness of breath. FINDINGS: There are no intraluminal pulmonary arterial filling defects. There is no pulmonary arterial embolus identified. The thoracic aorta is patent and nonacute. There is benign calcified granulomatous lymph node residua as well as some benign pulmonary parenchymal calcified granulomata. No noncalcified or suspicious chest mass. No effusion or pneumothorax. There is some subsegmental bibasilar partial atelectasis but no consolidating pneumonia. IMPRESSION: Negative for PE or acute aortic disease. Benign granulomatous residua with mild dependent basilar partial atelectasis. Dictated by: Dictated on workstation # [id number]
[2020-02-13] MEDS ORDERED: CEFD300C3 PO (13:13)
--- NOTE | 2020-02-13 13:14 | Diagnostic Imaging Report ---
PROCEDURE: US right lower extremity venous. TECHNIQUE: Multiple real-time grayscale images were obtained over the right lower extremity in various projections. Additional spectral analysis and color Doppler duplex images were also obtained. INDICATION: Elevated D-dimer and right knee replacement surgery. There is no evidence of right lower extremity DVT. Right lower extremity deep venous system shows normal compressibility with normal response to augmentation and Valsalva. No fluid collection or mass is detected. IMPRESSION: No evidence of right lower extremity DVT. Dictated by: Dictated on workstation # [id number]
--- NOTE | 2020-02-13 13:25 | NUR ---
MEAL TRAY DELIVERED TO PT
[2020-02-13 14:02] VITALS: BP 94/60
[2020-02-14] MEDS ORDERED: DAPTOmycin INJECTION 500 MG in NS (IVPB) 50 ML IV SCH (09:00)
[2020-02-14] MEDS ORDERED: TEMA30CA PO (12:39)
[2020-02-14] MEDS ORDERED: ROSU5TAB13 PO (12:39)
[2020-02-14] MEDS ORDERED: CELE-63 PO (12:39)
[2020-02-14] MEDS ORDERED: OMEP40CA27 PO (12:39)
[2020-02-14] MEDS ORDERED: BACL10TA PO (12:39)
[2020-02-14] MEDS ORDERED: ENAL20TA PO (12:39)
[2020-02-14] MEDS ORDERED: GABA300C PO (12:39)
[2020-02-14] MEDS ORDERED: ARIP5TAB57 PO (12:42)
[2020-02-14] MEDS ORDERED: METF-397 PO (12:42)
[2020-02-14] MEDS ORDERED: ALOG25TA2 PO (12:42)
[2020-02-14] MEDS ORDERED: BUPR150T14 PO (12:44)
[2020-02-14] MEDS ORDERED: RIFA300C3 PO (15:02)
== END 2020-02-13 14:02 | disposition home or self-care (01) ==
LOC: EDUNIT# 07:44 → ER 07:45
DX: N39.0 Urinary tract infection, site not specified (principal); L08.9 Local infection of the skin and subcutaneous tissue, unspecified; I10 Essential (primary) hypertension; E11.9 Type 2 diabetes mellitus without complications; F41.9 Anxiety disorder, unspecified; F32.9 Major depressive disorder, single episode, unspecified; G81.94 Hemiplegia, unspecified affecting left nondominant side; Z20.828 Contact with and (suspected) exposure to other viral communicable diseases; Z79.52 Long term (current) use of systemic steroids; Z96.641 Presence of right artificial hip joint; Z79.84 Long term (current) use of oral hypoglycemic drugs; Z82.49 Family history of ischemic heart disease and other diseases of the circulatory system
CPT/HCPCS: 70450; 71045; 71275; 80053; 81000; 83605; 83615; 84145; 85025; 85379; 85610; 85652; 85730; 86141; 86769; 87040; 87077; 87088; 87186; 93971; 96361; 96365; 96375; 99284; U0002; 36415; 87635

== ENCOUNTER 2020-03-11 08:56 | Outpatient (RCR) | payer BC, OTHER ==
[2020-02-27] MEDS: NS IV SCH ×2 (11:22)
[2020-02-27] MEDS: DAPTOMYCIN IV SCH ×2 (11:22)
[2020-02-27] MEDS: CATHETER FLUSH 10 ML SYR IV PRN ×2 (11:23→11:28)
[2020-02-27 11:37] LABS: HEMOGLOBIN 8.5 G/DL (11.5-16.0); MEAN PLATELET VOLUME 10.3 FL (7.4-10.4); RED CELL DISTRIBUTION WIDTH 18.2 % (10.0-14.5); WHITE BLOOD COUNT 4.4 10^3/uL (4.3-11.0)
[2020-02-27 11:53] LABS: CHLORIDE 94 MMOL/L (98-107); POTASSIUM 4.3 MMOL/L (3.6-5.0); SODIUM 131 MMOL/L (135-145)
[2020-02-27 11:54] LABS: CALCIUM 8.1 MG/DL (8.5-10.1); GLUCOSE 369 MG/DL (70-105)
[2020-02-27 11:56] LABS: CARBON DIOXIDE 29 MMOL/L (21-32)
[2020-02-27 11:58] LABS: CREATININE SERUM 0.88 MG/DL (0.60-1.30); GFR ESTIMATED > 60
[2020-02-27 11:59] LABS: BUN/CREATININE RATIO 10
[2020-02-27 12:02] VITALS: BP 125/66
[2020-02-28] MEDS: CATHETER FLUSH 10 ML SYR IV PRN (09:22)
[2020-02-28] MEDS: DAPTOMYCIN IV SCH ×2 (09:22)
[2020-02-28] MEDS: NS IV SCH ×2 (09:22)
[2020-02-28 10:00] VITALS: BP 135/70
[2020-02-29] MEDS: DAPTOMYCIN IV SCH ×2 (10:29)
[2020-02-29] MEDS: NS IV SCH ×2 (10:29)
[2020-02-29] MEDS: CATHETER FLUSH 10 ML SYR IV PRN (10:30)
[2020-02-29 11:05] VITALS: BP 128/74
[2020-03-01] MEDS: NS IV SCH ×2 (09:24)
[2020-03-01] MEDS: DAPTOMYCIN IV SCH ×2 (09:24)
[2020-03-01] MEDS: CATHETER FLUSH 10 ML SYR IV PRN (09:24)
[2020-03-01 10:00] VITALS: BP 141/73
[2020-03-02] MEDS: CATHETER FLUSH 10 ML SYR IV PRN (09:35)
[2020-03-02] MEDS: DAPTOMYCIN IV SCH ×2 (09:35)
[2020-03-02] MEDS: NS IV SCH ×2 (09:35)
[2020-03-02 10:15] VITALS: BP 116/70
[2020-03-03] MEDS: NS IV SCH ×2 (09:22)
[2020-03-03] MEDS: CATHETER FLUSH 10 ML SYR IV PRN (09:22)
[2020-03-03] MEDS: DAPTOMYCIN IV SCH ×2 (09:22)
[2020-03-03 10:00] VITALS: BP 129/75
[2020-03-04 11:00] VITALS: BP 115/61
[2020-03-04] MEDS: DAPTOMYCIN IV SCH ×2 (11:43)
[2020-03-04] MEDS: NS IV SCH ×2 (11:43)
[2020-03-06 09:15] VITALS: BP 130/70
[2020-03-06] MEDS: DAPTOmycin INJECTION 500 MG in NS (IVPB) 50 ML IV SCH (09:34)
[2020-03-06] MEDS: CATHETER FLUSH 10 ML SYR IV PRN (09:34)
[2020-03-06 09:35] LABS: BASOPHILS # (AUTO) 0.1 10^3/uL (0.0-0.1); BASOPHILS % (AUTO) 2 % (0-10); EOSINOPHILS # (AUTO) 0.1 10^3/uL (0.0-0.3); EOSINOPHILS % (AUTO) 3 % (0-10); HEMATOCRIT 31 % (35-52); HEMOGLOBIN 9.6 G/DL (11.5-16.0); LYMPHOCYTES # (AUTO) 0.9 X 10^3 (1.0-4.0); LYMPHOCYTES % (AUTO) 20 % (12-44); MEAN CORPUSCULAR HEMOGLOBIN 27 PG (25-34); MEAN CORPUSCULAR HGB CONC 31 G/DL (32-36); MEAN CORPUSCULAR VOLUME 88 FL (80-99); MEAN PLATELET VOLUME 8.8 FL (7.4-10.4); MONOCYTES # (AUTO) 0.4 X 10^3 (0.0-1.0); MONOCYTES % (AUTO) 9 % (0-12); NEUTROPHILS # (AUTO) 2.9 X 10^3 (1.8-7.8); NEUTROPHILS % (AUTO) 66 % (42-75); PLATELET COUNT 274 10^3/uL (130-400); RED CELL DISTRIBUTION WIDTH 17.3 % (10.0-14.5); WHITE BLOOD COUNT 4.3 10^3/uL (4.3-11.0)
[2020-03-06 09:53] LABS: ALANINE AMINOTRANSFERASE 21 U/L (0-55); ALBUMIN 3.2 GM/DL (3.2-4.5); ALKALINE PHOSPHATASE 65 U/L (40-136); BILIRUBIN,TOTAL 0.5 MG/DL (0.1-1.0); BUN/CREATININE RATIO 12; CALCIUM 8.7 MG/DL (8.5-10.1); CARBON DIOXIDE 26 MMOL/L (21-32); CHLORIDE 102 MMOL/L (98-107); CREATINE KINASE 28 U/L (29-168); CREATININE SERUM 0.82 MG/DL (0.60-1.30); GFR ESTIMATED > 60; GLUCOSE 239 MG/DL (70-105); POTASSIUM 4.2 MMOL/L (3.6-5.0); SODIUM 136 MMOL/L (135-145); TOTAL PROTEIN 7.1 GM/DL (6.4-8.2)
[2020-03-06 10:04] LABS: ERYTHROCYTE SEDIMENTATION RATE 68 MM/HR (0-30)
[2020-03-08 08:35] VITALS: BP 121/82
[2020-03-08] MEDS: DAPTOmycin INJECTION 500 MG in NS (IVPB) 50 ML IV SCH (09:08)
[2020-03-08] MEDS: CATHETER FLUSH 10 ML SYR IV PRN ×2 (09:09→09:41)
[2020-03-09] MEDS: DAPTOmycin INJECTION 500 MG in NS (IVPB) 50 ML IV SCH (09:18)
[2020-03-09 09:40] VITALS: BP 126/70
[2020-03-10] MEDS: CATHETER FLUSH 10 ML SYR IV PRN ×2 (09:12→09:45)
[2020-03-10] MEDS: DAPTOmycin INJECTION 500 MG in NS (IVPB) 50 ML IV SCH (09:13)
[2020-03-10 10:09] VITALS: BP 126/70
[~2020-03-11] VITALS: Ht 175.3 cm
[~2020-03-11 08:56] MED LIST changes: +ALOG25TA2 PO; +BACL10TA PO; +CEFD300C3 PO; +CELE-63 PO; +CEPH500T PO; +GABA300C PO; +OMEP40CA27 PO; +RIFA300C3 PO; +ROSU5TAB13 PO; +TEMA30CA PO
[2020-03-11] MEDS: CATHETER FLUSH 10 ML SYR IV PRN ×2 (09:13→09:43)
[2020-03-11] MEDS: DAPTOmycin INJECTION 500 MG in NS (IVPB) 50 ML IV SCH (09:14)
[2020-03-11 09:45] VITALS: BP 119/68
[2020-03-12 07:18] LABS: BASOPHILS # (AUTO) 0.1 10^3/uL (0.0-0.1); BASOPHILS % (AUTO) 1 % (0-10); EOSINOPHILS # (AUTO) 0.1 10^3/uL (0.0-0.3); EOSINOPHILS % (AUTO) 2 % (0-10); HEMATOCRIT 33 % (35-52); LYMPHOCYTES # (AUTO) 1.2 X 10^3 (1.0-4.0); LYMPHOCYTES % (AUTO) 23 % (12-44); MEAN CORPUSCULAR HEMOGLOBIN 27 PG (25-34); MEAN CORPUSCULAR HGB CONC 31 G/DL (32-36); MEAN CORPUSCULAR VOLUME 87 FL (80-99); MEAN PLATELET VOLUME 9.3 FL (7.4-10.4); MONOCYTES # (AUTO) 0.5 X 10^3 (0.0-1.0); MONOCYTES % (AUTO) 8 % (0-12); NEUTROPHILS # (AUTO) 3.5 X 10^3 (1.8-7.8); NEUTROPHILS % (AUTO) 66 % (42-75); PLATELET COUNT 169 10^3/uL (130-400); RED CELL DISTRIBUTION WIDTH 16.6 % (10.0-14.5); WHITE BLOOD COUNT 5.3 10^3/uL (4.3-11.0)
[2020-03-12] MEDS: CATHETER FLUSH 10 ML SYR IV PRN (07:20)
[2020-03-12] MEDS: DAPTOmycin INJECTION 500 MG in NS (IVPB) 50 ML IV SCH (07:21)
[2020-03-12 07:33] LABS: ALANINE AMINOTRANSFERASE 17 U/L (0-55); ALBUMIN 3.6 GM/DL (3.2-4.5); ALKALINE PHOSPHATASE 66 U/L (40-136); BILIRUBIN,TOTAL 0.4 MG/DL (0.1-1.0); BUN/CREATININE RATIO 15; CALCIUM 8.5 MG/DL (8.5-10.1); CARBON DIOXIDE 22 MMOL/L (21-32); CHLORIDE 101 MMOL/L (98-107); CREATINE KINASE 19 U/L (29-168); CREATININE SERUM 0.85 MG/DL (0.60-1.30); GFR ESTIMATED > 60; GLUCOSE 287 MG/DL (70-105); POTASSIUM 4.8 MMOL/L (3.6-5.0); SODIUM 133 MMOL/L (135-145); TOTAL PROTEIN 7.3 GM/DL (6.4-8.2)
[2020-03-12 07:56] LABS: ERYTHROCYTE SEDIMENTATION RATE 59 MM/HR (0-30)
== END 2020-03-12 07:53 | disposition home or self-care (01) ==
LOC: SDC 08:56
PROVIDERS: ATTEND Internal Medicine Critical Care Medicine
DX: Z51.81 Encounter for therapeutic drug level monitoring (principal); Z79.899 Other long term (current) drug therapy
CPT/HCPCS: 36415; 80048; 80053; 82550; 85025; 85027; 85652; 86141; 96365

== ENCOUNTER 2020-03-16 09:02 | Outpatient (RCR) | payer BC, OTHER ==
[2020-03-12 07:50] VITALS: BP 136/64
[2020-03-13] MEDS: DAPTOmycin 500 MG/NS 50 ML IVPB IV SCH ×2 (09:23)
[2020-03-13 09:28] VITALS: BP 119/63
[2020-03-14] MEDS: DAPTOmycin 500 MG/NS 50 ML IVPB IV SCH ×2 (09:13)
[2020-03-14 09:50] VITALS: BP 134/77
[2020-03-15 09:10] VITALS: BP 120/78
[2020-03-15] MEDS: DAPTOmycin 500 MG/NS 50 ML IVPB IV SCH ×2 (09:19)
[~2020-03-16] VITALS: Ht 175.3 cm; Wt 90.9 kg
[2020-03-16 08:55] VITALS: BP 136/67
[2020-03-16] MEDS: DAPTOmycin 500 MG/NS 50 ML IVPB IV SCH ×2 (09:21)
== END 2020-03-16 10:00 | disposition home or self-care (01) ==
LOC: SDC 09:02
PROVIDERS: ATTEND Internal Medicine Infectious Disease
DX: T84.53XA Infection and inflammatory reaction due to internal right knee prosthesis, initial encounter (principal); Z79.2 Long term (current) use of antibiotics
CPT/HCPCS: 96365

== ENCOUNTER 2020-03-22 09:58 | Outpatient (RCR) | payer BC ==
[~2020-03-22 09:58] MED LIST changes: -OXYC-465 PO; +OXYC-556 PO
== END 2020-03-29 | disposition home or self-care (01) ==
PROVIDERS: ATTEND Physician Assistant
DX: Z47.1 Aftercare following joint replacement surgery (principal); Z96.651 Presence of right artificial knee joint; I10 Essential (primary) hypertension; E11.9 Type 2 diabetes mellitus without complications

== ENCOUNTER → 2021-06-07 | Outpatient (REF) ==
[~2021-06-07] MED LIST changes: +AMLO-251 PO; -AMLO10TA7 PO; +CALC-774 PO; -CLD600T PO; -ENAL10TA PO; +ENAL10TA16 PO; -ENAL20TA PO; +ENAL20TA16 PO; -ESTR2TAB PO; +ESTR2TAB3 PO; +GLBR5T PO; -GLYB5TAB6 PO; -NADO40TA PO; +NADO40TA2 PO; -OMEP40CA27 PO; +OMEP40CA6 PO; +SCOP1PAT10 TD; -SCOP1PAT11 TD
--- NOTE | 2021-06-07 14:14 | Diagnostic Imaging Report ---
INDICATION: Right shoulder injury with pain. AP, oblique, and axillary views of the right shoulder are obtained. FINDINGS: There is mild narrowing of the acromioclavicular joint. Mild marginal spurring is noted about the acromioclavicular and glenohumeral joints. No fracture is seen. There is no evidence of malalignment. IMPRESSION: Mild marginal spurring in the right shoulder without acute osseous abnormality detected. Dictated by: Dictated on workstation # [id number]
== END ==
LOC: OCC 13:43
PROVIDERS: ATTEND Family Medicine
DX: M25.511 Pain in right shoulder (principal)
CPT/HCPCS: 73030

== ENCOUNTER → 2021-06-21 | Outpatient (CLI) | payer OTHER ==
--- NOTE | 2021-06-21 11:57 | Diagnostic Imaging Report ---
TECHNIQUE: All CT scans use one or more of the following dose optimizing techniques: automated exposure control, MA and/or KvP adjustment based on patient size and exam type or iterative reconstruction. EXAMINATION: Magnetic resonance imaging of the right shoulder without contrast. DATE: June 21, 2021. COMPARISON: Right shoulder radiographs June 07, 2021. HISTORY: 66-year-old female, right shoulder injury. Right shoulder pain. TECHNIQUE: Magnetic Resonance Imaging sequences were performed of the shoulder without contrast. FINDINGS: ROTATOR CUFF, LIGAMENTS, TENDONS, AND MUSCLES: There is supraspinatus and infraspinatus tendinopathy. There is a full-thickness tear of the supraspinatus tendon measuring approximately 13 mm in width the medial collateral extent of 5 mm. This is occurring approximately 15 mm proximal to the humeral head attachment site. The teres minor tendon is intact. There is mild subscapularis tendinopathy. There is normal rotator cuff muscle bulk and signal. LONG HEAD OF BICEPS: The biceps labral attachment and long head of the biceps tendon is intact. The long head of the biceps tendon is normally positioned within the bicipital groove. GLENOHUMERAL JOINT: The humeral head is well positioned relative to the glenoid. The labrum is grossly intact. There is no identified paralabral cyst. The articular cartilage is grossly intact. There is a moderate sized glenohumeral joint effusion. There is a 3 mm intra-articular body posteriorly located on axial sequence image 16. There is no prominent synovitis. ACROMIOCLAVICULAR JOINT: The acromioclavicular joint is normally aligned. The coracoclavicular and coracoacromial ligaments are intact. There are mild to moderate acromioclavicular degenerative changes with a bulbous clavicle projecting roughly 2 to 3 mm below the joint margin. BONE: There is no os acromiale. There is degenerative related marrow edema adjacent to the acromioclavicular joint. There is no Hill-Sachs deformity. There is no acute fracture, bone contusion, or evidence of osteonecrosis. BURSAE AND SOFT TISSUES: There is a small amount of fluid in the subacromial subdeltoid bursa. IMPRESSION: 1. Full-thickness tear of the supraspinatus tendon measuring 13 mm in width with the medial to lateral extent of approximately 5 mm. No fatty muscle atrophy. Infraspinatus and mild subscapularis tendinopathy. 2. Mild to moderate acromioclavicular degenerative changes with bulbous lateral clavicle extending approximately 2 to 3 mm below the joint margin. 3. Intact proximal long the biceps tendon. 4. Grossly intact labrum and articular cartilage of the glenohumeral joint. Moderate sized glenohumeral joint effusion with 3 mm intra-articular body. 5. No acute fracture, bone contusion, or evidence of osteonecrosis. Dictated by: Dictated on workstation # [id number]
== END ==
LOC: RAD 09:30
PROVIDERS: ATTEND Family Medicine
DX: S46.011A Strain of muscle(s) and tendon(s) of the rotator cuff of right shoulder, initial encounter (principal); M19.011 Primary osteoarthritis, right shoulder; M25.411 Effusion, right shoulder; X58.XXXA Exposure to other specified factors, initial encounter
CPT/HCPCS: 73221

== ENCOUNTER → 2021-09-16 | Outpatient (RCR) | payer OTHER | END | disposition home or self-care (01) | PROVIDERS: ATTEND Orthopaedic Surgery | DX: M25.511 Pain in right shoulder (principal); I10 Essential (primary) hypertension; E11.9 Type 2 diabetes mellitus without complications; Z96.611 Presence of right artificial shoulder joint ==

== ENCOUNTER 2021-10-16 12:51 | Outpatient (RCR) | payer OTHER | END 2021-10-17 | disposition home or self-care (01) | PROVIDERS: ATTEND Orthopaedic Surgery | DX: M25.511 Pain in right shoulder (principal); I10 Essential (primary) hypertension; E11.9 Type 2 diabetes mellitus without complications; Z96.611 Presence of right artificial shoulder joint ==

== ENCOUNTER 2021-11-14 08:00 | Outpatient (RCR) | payer OTHER ==
[~2021-11-14 08:00] MED LIST changes: +BUPR-105 PO; -BUPR150T14 PO; -RIFA300C3 PO; +RIFA300C8 PO
== END 2021-11-16 | disposition home or self-care (01) ==
PROVIDERS: ATTEND Orthopaedic Surgery
DX: M25.511 Pain in right shoulder (principal); I10 Essential (primary) hypertension; E11.9 Type 2 diabetes mellitus without complications; Z96.611 Presence of right artificial shoulder joint

== ENCOUNTER 2021-12-09 09:10 | Outpatient (RCR) | payer OTHER | END 2021-12-09 10:07 | disposition home or self-care (01) | PROVIDERS: ATTEND Orthopaedic Surgery | DX: M25.511 Pain in right shoulder (principal); I10 Essential (primary) hypertension; E11.9 Type 2 diabetes mellitus without complications; Z98.890 Other specified postprocedural states ==

== ENCOUNTER 2022-03-13 09:03 | Outpatient (CLI) | payer MEDICARE ==
[~2022-03-13] VITALS: Ht 167.7 cm; Wt 90.9 kg
[2022-03-13] MEDS ORDERED: diphenhydrAMINE 50 MG/ML INJ (BENADRYL) IV PRN (09:15)
[2022-03-13] MEDS ORDERED: EPINEPHrine INJECTION 1 MG/ML AMP IM PRN (09:15)
[2022-03-13] MEDS ORDERED: ACETAMINOPHEN 500 MG TAB (TYLENOL) PO PRN (09:15)
[2022-03-13] MEDS ORDERED: BEBTELOVIMAB 175 MG/2 ML VIAL IV ONE (09:15)
[2022-03-13] MEDS ORDERED: ONDANSETRON 4 MG/2 ML (SDV) Z0FRAN IV PRN (09:15)
[2022-03-13 09:21] VITALS: BP 143/81
[2022-03-13 10:00] VITALS: BP 156/88
== END 2022-03-13 10:05 | disposition home or self-care (01) ==
LOC: INFUSION 09:03
PROVIDERS: ATTEND Nurse Practitioner Family
DX: U07.1 COVID-19 (principal)

== ENCOUNTER 2022-03-18 14:22 | Outpatient (RCR) | payer MEDICARE, OTHER | END 2022-03-19 | disposition home or self-care (01) | PROVIDERS: ATTEND Neurological Surgery | DX: Z48.89 Encounter for other specified surgical aftercare (principal); M62.81 Muscle weakness (generalized); M51.36 Other intervertebral disc degeneration, lumbar region; R26.81 Unsteadiness on feet ==

== ENCOUNTER 2022-04-03 14:27 | Outpatient (RCR) | payer OTHER | END 2022-04-18 | disposition home or self-care (01) | PROVIDERS: ATTEND Neurological Surgery | DX: Z48.89 Encounter for other specified surgical aftercare (principal); M62.81 Muscle weakness (generalized); M51.36 Other intervertebral disc degeneration, lumbar region; R26.81 Unsteadiness on feet ==

== ENCOUNTER 2022-05-15 08:26 | Outpatient (RCR) | payer OTHER | END 2022-05-19 | disposition home or self-care (01) | PROVIDERS: ATTEND Neurological Surgery | DX: Z48.89 Encounter for other specified surgical aftercare (principal); M51.36 Other intervertebral disc degeneration, lumbar region; M62.81 Muscle weakness (generalized); R26.81 Unsteadiness on feet ==

== ENCOUNTER 2022-06-04 08:08 | Outpatient (RCR) | payer MEDICARE, OTHER ==
[2022-05-30 13:37] VITALS: BP 141/78
[2022-05-31 08:58] VITALS: BP 113/67
[2022-05-31] MEDS: cefTRIAXone 2,000 MG/NS 50 ML IVPB IV SCH ×2 (09:22)
[2022-06-01 09:00] VITALS: BP 124/68
[2022-06-01] MEDS: cefTRIAXone 2,000 MG/NS 50 ML IVPB IV SCH ×2 (09:21)
[2022-06-02] MEDS: cefTRIAXone 2,000 MG/NS 50 ML IVPB IV SCH ×2 (10:09)
[2022-06-02 10:21] VITALS: BP 150/72
[2022-06-03] MEDS: cefTRIAXone 2,000 MG/NS 50 ML IVPB IV SCH ×2 (08:34)
[2022-06-03 08:37] VITALS: BP 135/70
[~2022-06-04] VITALS: Ht 170.2 cm; Wt 93.2 kg
[~2022-06-04 08:08] MED LIST changes: +NS (IVPB) 50 ML ONE; +cefTRIAXone 2,000 MG VIAL ONE
[2022-06-04 08:15] VITALS: BP 131/80
[2022-06-04] MEDS: cefTRIAXone 2,000 MG/NS 50 ML IVPB IV SCH ×2 (08:27)
== END 2022-06-18 | disposition home or self-care (01) ==
LOC: SDC 08:08
PROVIDERS: ATTEND Orthopaedic Surgery
DX: M00.80 Arthritis due to other bacteria, unspecified joint (principal)
CPT/HCPCS: 96365

== ENCOUNTER → 2022-06-09 | Outpatient (CLI) | payer MEDICARE, OTHER ==
[~2022-06-09] MED LIST changes: -NS (IVPB) 50 ML ONE; -cefTRIAXone 2,000 MG VIAL ONE
[2022-06-09 11:14] LABS: HEMATOCRIT 23 % (35-52); MEAN CORPUSCULAR HEMOGLOBIN 25 pg (25-34); MEAN CORPUSCULAR HGB CONC 31 g/dL (32-36); MEAN CORPUSCULAR VOLUME 81 fL (80-99); MEAN PLATELET VOLUME 9.2 fL (9.0-12.2); PLATELET COUNT 215 10^3/uL (130-400); WHITE BLOOD COUNT 7.2 10^3/uL (4.3-11.0)
[2022-06-09 11:37] LABS: ALBUMIN 3.7 GM/DL (3.2-4.5); BILIRUBIN,TOTAL 0.3 MG/DL (0.1-1.0); CALCIUM 8.6 MG/DL (8.5-10.1); CREATININE SERUM 0.75 MG/DL (0.60-1.30); TOTAL PROTEIN 7.2 GM/DL (6.4-8.2)
== END ==
LOC: HH 11:03
PROVIDERS: ATTEND Internal Medicine
DX: A41.9 Sepsis, unspecified organism (principal)
CPT/HCPCS: 80053; 85027